=== PATIENT | male | born 1970 | race Caucasian/White ===

== ENCOUNTER 2020-04-11 09:58 | Outpatient (REF) | payer OTHER, SELFPAY ==
[2020-04-11 11:08] LABS: Alanine Aminotransferase 23 U/L (0-40); Albumin Level 4.6 g/dL (3.5-5.0); Alkaline Phosphatase 138 U/L (39-117); Aspartate Amino Transferase 20 U/L (5-37); Bilirubin Direct < 0.2 mg/dL (0.0-0.5); Bilirubin Total 0.2 mg/dL (0.0-1.0); Total Protein 7.9 g/dL (6.5-8.0)
[2020-04-11 11:16] LABS: Phenytoin Dilantin 14.1 ug/mL (10.0-20.0)
== END 2020-04-11 09:59 | disposition home or self-care (01) ==
LOC: HO.LAB 09:58
PROVIDERS: PCP Internal Medicine; Visit Provider Psychiatry & Neurology Neurology
DX: G40.909 Epilepsy, unspecified, not intractable, without status epilepticus (principal)
CPT/HCPCS: 80076; 80185

== ENCOUNTER 2020-05-04 16:16 | Emergency (ER) | payer OTHER, SELFPAY ==
[2020-05-04 16:25] VITALS: BP 140/80; PULSE 80; PULSE 96; RESP 14; TEMP 37; O2SAT 96; O2SAT 99; BMI 21.7
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
[2020-05-04 17:15] VITALS: BP 152/95; PULSE 89; RESP 16; TEMP 37; O2SAT 97
== END 2020-05-04 17:29 | disposition left against medical advice (07) ==
PROVIDERS: Emergency Provider Emergency Medicine
DX: G40.909 Epilepsy, unspecified, not intractable, without status epilepticus (principal)
CPT/HCPCS: 99283

== ENCOUNTER 2020-10-11 11:06 | Outpatient (REF) | payer OTHER, SELFPAY ==
[2020-10-11 12:31] LABS: Alanine Aminotransferase 19 U/L (0-40); Albumin Level 4.2 g/dL (3.5-5.0); Alkaline Phosphatase 108 U/L (39-117); Anion Gap 11 (12-20); Aspartate Amino Transferase 16 U/L (5-37); Bilirubin Direct < 0.2 mg/dL (0.0-0.5); Bilirubin Total 0.2 mg/dL (0.0-1.0); Blood Urea Nitrogen 9 mg/dL (9-16); Calcium 8.8 mg/dL (8.4-10.2); Carbon Dioxide 26 mmol/L (22-29); Chloride 103 mmol/L (96-108); Estimated Glomerular Filt Rate > 60; Glucose Random 94 mg/dL (60-115); Potassium 4.3 mmol/L (3.3-5.1); Sodium 136 mmol/L (135-145); Total Protein 6.9 g/dL (6.5-8.0)
== END 2020-10-11 11:07 | disposition home or self-care (01) ==
LOC: HO.LAB 11:06
PROVIDERS: PCP Internal Medicine; Visit Provider Psychiatry & Neurology Neurology
DX: G40.909 Epilepsy, unspecified, not intractable, without status epilepticus (principal)
CPT/HCPCS: 36415; 80048; 80076

== ENCOUNTER 2020-10-18 11:30 | Emergency (ER) | payer OTHER, SELFPAY ==
[2020-10-18] VITALS (13 sets, daily range): BP systolic 104–167; BP diastolic 30–105; PULSE 48–85; RESP 15–19; TEMP 36.6–36.7; O2SAT 96–98; BMI 19.3
--- NOTE | ~2020-10-18 | CT_ITS ---
EXAMINATION: CTA OF THE HEAD AND NECK CLINICAL INFORMATION: Headaches and dizziness. COMPARISON: Head CT dated 06/17/2011. TECHNIQUE: Test bolus sequences followed by intravenous administration 70 mL of Omnipaque 350. Helical imaging was performed in the axial plane from the mediastinum to the skull vertex. Delayed postcontrast imaging of the head was also performed. The data was processed at the wood technologist's workstation for generation of MIP sequences. Three-dimensional volume rendered reformatted images were also generated at an offline 3-D workstation. Stenoses are assessed in accordance with NASCET criteria unless otherwise indicated. This CT examination was performed using dose optimization techniques as appropriate, variously including the following: *Automated exposure control *Adjustment of mA and/or kV according to patient size (this includes techniques or standardized protocols for targeted exams where dose is matched to indication/reason for exam; i.e. extremities or head) *Use of iterative reconstruction technique DLP: 2438 mGy-cm. FINDINGS: CT head: Remote right-sided craniotomy changes noted. There is significant volume loss in the right frontoparietal lobes with chronic ex vacuo dilatation of the right lateral ventricle. Frontoparietal sulcal prominence and encephalomalacia again evident on the right side. Scattered dural calcifications again evident along the falx and tentorium. There is no evidence of acute intracranial hemorrhage or territorial infarction. There is no loss of steve to white matter differentiation. No abnormal mass effect or midline shift is seen. No extra-axial fluid collections are identified. A small lipoma is visible in the midline suprasellar cistern at the level of the tuber cinereum. There is no abnormal enhancement. The remaining osseous structures and soft tissues are normal. There is patchy mild mucosal thickening with scattered retention cysts in the frontoethmoid sinuses and maxillary antra. The mastoid air cells are well aerated. CTA neck: The imaged aortic arch and origins of the great vessels are normal. The common carotid arteries are widely patent. The carotid bifurcations are normal. The cervical internal carotid arteries are normal. The vertebral arteries opacify normally and are of normal caliber. Heterogeneous nodularity of the thyroid gland evident. Wire again visible in the left aspect of the neck extending into the inferior left carotid space. Multilevel cervical spondylosis noted with disc-osteophyte complexes encroaching upon the neural foramina. The imaged portions of the lungs are clear. CTA head: The intradural vertebral arteries and basilar artery are normal. The posterior cerebral arteries are widely patent. The internal carotid arteries are of normal caliber. The JE and MCA vascular complexes bilaterally are patent. The distal right M1 segment and M2 vessels are somewhat attenuated in caliber as compared to the left side, suspected to be chronic. The venous sinuses opacify normally. CT/CT angio head neck IMPRESSION: Normal CT angiogram of the neck. Chronic-appearing mild to moderate attenuated caliber of the distal M1 and M2 branches of the right MCA vasculature without occlusion. Remainder of the vessels at the level of the [place] are preserved. Chronic postsurgical changes and significant volume loss in the right frontoparietal lobes with ex vacuo dilatation of the right lateral ventricle. Scattered areas of cortical/subcortical encephalomalacia and gliosis in the right cerebral hemisphere. Otherwise, no acute process. Imaging findings reported to HENRY Torres at 5:31 PM on 10/18/2020.
--- NOTE | 2020-10-18 11:39 | ECG_ITS ---
Test Reason : DIZZINESS Blood Pressure : / mmHG Vent. Rate : 061 BPM Atrial Rate : 061 BPM P-R Int : 152 ms QRS Dur : 108 ms QT Int : 418 ms P-R-T Axes : 065 105 073 degrees QTc Int : 420 ms Normal sinus rhythm Rightward axis Borderline ECG When compared with ECG of 17-JUN-2011 21:27, QRS duration has increased Referred By: Generic ED Physician Electronically Signed By:ARIEL WHARTON MD
[2020-10-18 11:55] LABS: Glucose, Whole Blood 106 mg/dL (60-115)
[2020-10-18 12:32] LABS: MANUAL DIFF FLAG NO
[2020-10-18 12:33] LABS: Basophils Absolute Auto 0.1 X10*3/uL (0.0-0.2); Basophils Percent Auto 0.5 % (0-2); Eosinophils Absolute Auto 0.2 X10*3/uL (0.0-0.4); Hematocrit 46.3 % (42-52); Hemoglobin 15.6 g/dl (14.0-18.0); Imm Gran Abs Auto 0.04 X10*3/uL (0.00-0.03); Imm Gran Pct Auto 0.4 % (0.0-0.4); Lymphocytes Absolute Auto 1.9 X10*3/uL (1.2-4.9); Lymphocytes Percent Auto 20.9 % (20-40); Mean Corpuscular HGB Conc 33.7 g/dl (31.0-36.0); Mean Corpuscular Hemoglobin 29.8 pg (27.0-33.0); Mean Corpuscular Volume 88.4 fL (80-98); Mean Platelet Volume 9.4 fL (9.4-12.4); Monocytes Absolute Auto 0.5 X10*3/uL (0.1-1.2); Monocytes Percent Auto 5.6 % (2-11); Neutrophils Absolute Auto 6.4 X10*3/uL (2.0-8.3); Neutrophils Percent Auto 70.6 % (45-73); Platelet Count 293 X10*3/uL (160-400); Red Blood Count 5.24 X10*6/uL (4.60-5.80); Red Cell Distribution Width 14.3 % (11.0-16.0); White Blood Count 9.1 X10*3/uL (4.8-10.8)
[2020-10-18 13:01] LABS: Lactic Acid 0.8 mmol/L (0.5-2.0)
[2020-10-18 13:07] LABS: Anion Gap 11 (12-20); Blood Urea Nitrogen 9 mg/dL (9-16); Calcium 8.9 mg/dL (8.4-10.2); Carbon Dioxide 27 mmol/L (22-29); Chloride 104 mmol/L (96-108); Creatinine Clr Calc Pharmacy 95.2; Estimated Glomerular Filt Rate > 60; Glucose Random 105 mg/dL (60-115); Potassium 4.2 mmol/L (3.3-5.1); Sodium 138 mmol/L (135-145)
[2020-10-18] MEDS: Metoclopramide HCl 10 MG/2 ML VIAL IVPUSH (13:16)
[2020-10-18 13:17] LABS: Phenytoin Dilantin 19.5 ug/mL (10.0-20.0)
[2020-10-18] MEDS: Butalb/Acetamin/Caff 50/325/40 TABLET 1 TAB PO (13:19)
[2020-10-18] MEDS: Meclizine HCl 25 MG TABLET 50 MG PO (13:20)
[2020-10-18 14:02] LABS: Prothrombin Time 12.3 SEC (10.8-13.0)
[2020-10-18 14:05] LABS: Partial Thromboplastin Time 30.6 SEC (24.1-38.0)
[2020-10-18 14:29] LABS: Troponin-I High Sensitivity < 3.5 ng/L (<3.5-35.0)
[2020-10-18] MEDS: iohexoL 350 MG/ML 100 ML INFUS..BTL 85 ML IV (14:41)
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
[2020-10-18] MEDS: 0.9 % Sodium Chloride 1,000 ML 999 ML IV (16:29)
--- NOTE | 2020-10-18 17:00 | PC.NURSE ---
Patient is resting quietly in bed in no distress. pt encouraged to void but state he does not feel the need to void.
[2020-10-18 20:30] LABS: Glucose Urine UA NEG (NEG); Leukocyte Esterase Urine NEG (NEG); Nitrite Urine NEG (NEG); Urine Blood NEG (NEG); Urine Ketones NEG (NEG); Urine Protein NEG (NEG-TRACE)
[2020-10-18 20:31] LABS: Appearance Urine CLEAR; Color Urine YELLOW
[2020-10-18 20:52] LABS: Troponin-I High Sensitivity < 3.5 ng/L (<3.5-35.0)
== END 2020-10-18 21:38 | disposition home or self-care (01) ==
PROVIDERS: Physician Assistant; Emergency Provider Emergency Medicine; PCP Internal Medicine
DX: I95.1 Orthostatic hypotension (principal); G81.94 Hemiplegia, unspecified affecting left nondominant side; G40.909 Epilepsy, unspecified, not intractable, without status epilepticus; Z87.820 Personal history of traumatic brain injury
CPT/HCPCS: 36415; 70496; 70498; 80048; 80185; 81003; 82947; 83605; 84484; 85025; 85610; 85730; 93005; 96361; 96374; 99285; J2765; Q9967

== ENCOUNTER 2020-11-02 15:12 | Outpatient (REF) | payer OTHER, SELFPAY ==
--- NOTE | ~2020-11-02 | XR_ITS ---
EXAMINATION: XR SHOULDER, LEFT CLINICAL INFORMATION: Spraining left shoulder joint. COMPARISON: Left scapula 05/24/2017 TECHNIQUE: Three views of the left shoulder. FINDINGS: There is a displaced oblique fracture lateral clavicle with mild soft tissue swelling. The AC joint however is maintained normal . Visualized glenohumeral joint space is normal. XR/XR shoulder LT min 2V IMPRESSION: Displaced oblique fracture inferior lateral clavicle. The AC joint and glenohumeral joint are intact.
== END 2020-11-02 15:13 | disposition home or self-care (01) ==
LOC: HO.HMGCX 15:12
PROVIDERS: PCP Internal Medicine; Visit Provider Internal Medicine
DX: Z13.89 Encounter for screening for other disorder (principal)
CPT/HCPCS: 73030

== ENCOUNTER 2020-11-14 08:16 | Outpatient (REF) | payer OTHER, SELFPAY ==
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
== END 2020-11-14 08:17 | disposition home or self-care (01) ==
LOC: HO.HOSX 08:16
PROVIDERS: Visit Provider Physician Assistant
DX: S42.002A Fracture of unspecified part of left clavicle, initial encounter for closed fracture (principal)
CPT/HCPCS: 73000; 99212

== ENCOUNTER 2020-11-24 07:29 | Emergency (ER) | payer OTHER, SELFPAY ==
--- NOTE | ~2020-11-24 | CT_ITS ---
EXAMINATION: CT HEAD WITHOUT CONTRAST CLINICAL INFORMATION: Headaches COMPARISON: June 17, 2011 and CTA of October 18, 2020 TECHNIQUE: Contiguous axial imaging was performed from the skull base to vertex without intravenous administration of contrast. This CT examination was performed using dose optimization techniques as appropriate, variously including the following: *Automated exposure control *Adjustment of mA and/or kV according to patient size (this includes techniques or standardized protocols for targeted exams where dose is matched to indication/reason for exam; i.e. extremities or head) *Use of iterative reconstruction technique DLP: 722 mGy-cm FINDINGS: There is no evidence of acute intracranial hemorrhage or territorial infarction. No abnormal mass effect or midline shift is seen. Sanz to white matter differentiation is well preserved. No extra-axial fluid collections are identified. Patient status post right frontal/parietal craniotomy with changes of encephalomalacia with volume loss within the right frontal parietal lobes and dilatation of the right lateral ventricle. These findings are stable. There is mucosal disease seen within the ethmoid sinuses bilaterally. Mastoid air cells are aerated. CT/CT head/brain wo con IMPRESSION: No acute intracranial pathology. Encephalomalacia involving the right frontal and parietal lobes. Status post previous craniotomy.
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
--- NOTE | 2020-11-24 07:38 | ECG_ITS ---
Test Reason : DIZZINESS Blood Pressure : / mmHG Vent. Rate : 070 BPM Atrial Rate : 070 BPM P-R Int : 156 ms QRS Dur : 102 ms QT Int : 398 ms P-R-T Axes : 063 078 070 degrees QTc Int : 429 ms Normal sinus rhythm Possible Left atrial enlargement Borderline ECG When compared with ECG of 18-OCT-2020 11:47, No significant change was found Referred By: Carolin Beckford Electronically Signed By:Steven Mcmullen
[2020-11-24 07:42] VITALS: BP 165/105; BP 170/98; PULSE 79; PULSE 98; RESP 18; TEMP 36.9; O2SAT 96; BMI 20.1
[2020-11-24 08:37] LABS: MANUAL DIFF FLAG NO
[2020-11-24 08:40] LABS: Basophils Absolute Auto 0.1 X10*3/uL (0.0-0.2); Basophils Percent Auto 0.7 % (0-2); Eosinophils Absolute Auto 0.3 X10*3/uL (0.0-0.4); Eosinophils Percent Auto 2.1 % (0-4); Hematocrit 44.6 % (42-52); Hemoglobin 15.2 g/dl (14.0-18.0); Imm Gran Abs Auto 0.04 X10*3/uL (0.00-0.03); Imm Gran Pct Auto 0.3 % (0.0-0.4); Lymphocytes Absolute Auto 2.4 X10*3/uL (1.2-4.9); Lymphocytes Percent Auto 20.2 % (20-40); Mean Corpuscular HGB Conc 34.1 g/dl (31.0-36.0); Mean Corpuscular Volume 88.1 fL (80-98); Mean Platelet Volume 9.8 fL (9.4-12.4); Monocytes Absolute Auto 0.9 X10*3/uL (0.1-1.2); Monocytes Percent Auto 7.9 % (2-11); Neutrophils Percent Auto 68.8 % (45-73); Platelet Count 275 X10*3/uL (160-400); Red Blood Count 5.06 X10*6/uL (4.60-5.80); White Blood Count 11.7 X10*3/uL (4.8-10.8)
[2020-11-24 08:45] LABS: Prothrombin Time 11.7 SEC (9.9-13.0)
[2020-11-24 08:48] LABS: Partial Thromboplastin Time 29.6 SEC (24.1-38.0)
[2020-11-24] MEDS: 0.9 % Sodium Chloride 1,000 ML 999 ML IVCONT ×2 (09:00)
[2020-11-24] MEDS: Acetaminophen 325 MG TABLET 650 MG PO (09:03)
[2020-11-24] MEDS: Meclizine HCl 25 MG TABLET PO (09:03)
[2020-11-24 09:27] LABS: Alanine Aminotransferase 17 U/L (0-40); Albumin Level 3.9 g/dL (3.5-5.0); Alkaline Phosphatase 125 U/L (39-117); Anion Gap 12 (12-20); Aspartate Amino Transferase 13 U/L (5-37); Bilirubin Direct < 0.2 mg/dL (0.0-0.5); Bilirubin Total < 0.2 mg/dL (0.0-1.0); Blood Urea Nitrogen 12 mg/dL (9-16); Calcium 8.9 mg/dL (8.4-10.2); Carbon Dioxide 27 mmol/L (22-29); Chloride 102 mmol/L (96-108); Creatinine Clr Calc Pharmacy 95.5; Estimated Glomerular Filt Rate > 60; Glucose Random 103 mg/dL (60-115); Magnesium 1.8 mg/dL (1.6-2.6); Potassium 4.4 mmol/L (3.3-5.1); Sodium 137 mmol/L (135-145); Total Protein 6.9 g/dL (6.5-8.0)
[2020-11-24 09:43] LABS: Phenytoin Dilantin 22.3 ug/mL (10.0-20.0)
[2020-11-24 11:28] VITALS: BP 147/88; PULSE 64; O2SAT 98
--- NOTE | 2020-11-24 11:28 | PC.NURSE ---
Pt difficult stick. multiple attempts made to establish iv. EJ established in left neck by Dr. Beckford. fluids infusing without difficulty, pt tolerating well.
== END 2020-11-24 14:20 | disposition home or self-care (01) ==
PROVIDERS: Emergency Provider Emergency Medicine; PCP Internal Medicine
DX: G44.209 Tension-type headache, unspecified, not intractable (principal); R42 Dizziness and giddiness; H53.8 Other visual disturbances; E86.0 Dehydration; F17.200 Nicotine dependence, unspecified, uncomplicated; R29.707 NIHSS score 7; Z79.899 Other long term (current) drug therapy; Z71.6 Tobacco abuse counseling
CPT/HCPCS: 36415; 70450; 80048; 80076; 80185; 83735; 84484; 85025; 85610; 85730; 93005; 96365; 96375; 99284; J2405

== ENCOUNTER 2020-11-29 09:06 | Emergency (ER) | payer OTHER, SELFPAY ==
--- NOTE | ~2020-11-29 | CT_ITS ---
EXAMINATION: CT ABDOMEN AND PELVIS WITH CONTRAST CLINICAL INFORMATION: Abdominal pain COMPARISON: None TECHNIQUE: Multidetector volumetric images were obtained from the superior aspect of the liver through the pubic symphysis following administration 85 mL of Omnipaque 350 intravenous contrast. Sagittal and coronal reformatted images were obtained on the technologist's workstation. Oral contrast: No This CT examination was performed using dose optimization techniques as appropriate, variously including the following: *Automated exposure control *Adjustment of mA and/or kV according to patient size (this includes techniques or standardized protocols for targeted exams where dose is matched to indication/reason for exam; i.e. extremities or head) *Use of iterative reconstruction technique DLP: 440 mGy-cm FINDINGS: LUNG BASES: The visualized lung bases are unremarkable. No pleural or pericardial effusion. LIVER, GALLBLADDER, AND BILIARY TREE: The liver is normal in size, shape, and attenuation. No focal hepatic lesion or biliary ductal dilatation is present. Status post cholecystectomy. PANCREAS: Unremarkable. No peripancreatic inflammatory change. SPLEEN: Unremarkable. ADRENAL GLANDS: Unremarkable. KIDNEYS AND URETERS: The kidneys are normal in size, shape, and attenuation. No hydronephrosis, hydroureter, or calculi seen. No perinephric stranding. There are a few subcentimeter left renal cysts. BLADDER: Very distended without wall thickening or calculi. GASTROINTESTINAL TRACT: No dilated loops of large or small bowel. No free air or free fluid. ABDOMINAL WALL: No significant hernia is appreciated. LYMPH NODES: There are prominent periaortic lymph nodes present with 1 right periaortic lymph node measuring 1.0 x 1.2 x 3.0 cm in size. There is a 1.0 x 1.3 x 1.5 cm lymph node adjacent to the GE junction. VASCULAR: Unremarkable. PELVIC VISCERA: Very distended urinary bladder without free fluid. The prostate gland measures approximately 4.5 x 5.0 x 3.5 cm in size. OSSEOUS STRUCTURES: No suspicious destructive bony lesions identified. There is degenerative change of the left sacroiliac joint with fusion. CT/CT abdomen pelvis w con IMPRESSION: Very distended urinary bladder. No evidence of ileus or obstruction. No evidence of obstructive uropathy. Enlarged periaortic lymph nodes.
[2020-11-29 09:14] VITALS: BP 170/106; PULSE 72; RESP 17; TEMP 37; O2SAT 98; BMI 21.9
[2020-11-29 09:59] LABS: MANUAL DIFF FLAG NO
[2020-11-29 10:00] LABS: Basophils Absolute Auto 0.1 X10*3/uL (0.0-0.2); Basophils Percent Auto 0.7 % (0-2); Eosinophils Absolute Auto 0.4 X10*3/uL (0.0-0.4); Eosinophils Percent Auto 4.2 % (0-4); Hemoglobin 15.1 g/dl (14.0-18.0); Imm Gran Abs Auto 0.02 X10*3/uL (0.00-0.03); Imm Gran Pct Auto 0.2 % (0.0-0.4); Lymphocytes Absolute Auto 2.7 X10*3/uL (1.2-4.9); Lymphocytes Percent Auto 32.3 % (20-40); Mean Corpuscular HGB Conc 33.6 g/dl (31.0-36.0); Mean Corpuscular Hemoglobin 29.8 pg (27.0-33.0); Mean Corpuscular Volume 88.8 fL (80-98); Mean Platelet Volume 10.3 fL (9.4-12.4); Monocytes Absolute Auto 0.6 X10*3/uL (0.1-1.2); Monocytes Percent Auto 6.9 % (2-11); Neutrophils Absolute Auto 4.7 X10*3/uL (2.0-8.3); Neutrophils Percent Auto 55.7 % (45-73); Platelet Count 236 X10*3/uL (160-400); Red Blood Count 5.07 X10*6/uL (4.60-5.80); Red Cell Distribution Width 14.3 % (11.0-16.0); White Blood Count 8.4 X10*3/uL (4.8-10.8)
[2020-11-29 10:31] LABS: Alanine Aminotransferase 21 U/L (0-40); Albumin Level 3.9 g/dL (3.5-5.0); Alkaline Phosphatase 117 U/L (39-117); Anion Gap 12 (12-20); Aspartate Amino Transferase 15 U/L (5-37); Bilirubin Total 0.2 mg/dL (0.0-1.0); Blood Urea Nitrogen 7 mg/dL (9-16); Carbon Dioxide 25 mmol/L (22-29); Chloride 104 mmol/L (96-108); Creatinine Clr Calc Pharmacy 112.6; Estimated Glomerular Filt Rate > 60; Glucose Random 98 mg/dL (60-115); Potassium 4.4 mmol/L (3.3-5.1); Sodium 137 mmol/L (135-145); Total Protein 6.8 g/dL (6.5-8.0)
[2020-11-29 10:46] VITALS: BP 171/105; PULSE 67; RESP 18; TEMP 36.7; O2SAT 98
--- NOTE | 2020-11-29 12:15 | ECG_ITS ---
Test Reason : DIZZINESS Blood Pressure : / mmHG Vent. Rate : 063 BPM Atrial Rate : 063 BPM P-R Int : 150 ms QRS Dur : 104 ms QT Int : 436 ms P-R-T Axes : 068 101 066 degrees QTc Int : 446 ms Normal sinus rhythm Rightward axis Borderline ECG When compared with ECG of 24-NOV-2020 08:08, No significant change was found Referred By: Rosie Larose Electronically Signed By:ARIEL WHARTON MD
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
[2020-11-29] MEDS: 0.9 % Sodium Chloride 1,000 ML 999 ML IV (12:35)
--- NOTE | 2020-11-29 12:36 | PC.NURSE ---
Pt evaluated by . IVF started. VSS. Pt aware of plan for CT.
[2020-11-29 12:37] VITALS: BP 157/91; PULSE 64; RESP 18; O2SAT 98
[2020-11-29] MEDS: iohexoL 350 MG/ML 100 ML INFUS..BTL IV (14:04)
[2020-11-29 15:57] LABS: Glucose Urine UA NEG (NEG); Leukocyte Esterase Urine NEG (NEG); Nitrite Urine NEG (NEG); PH 6.5 (5.0-8.0); Specific Gravity - Urine <= 1.005 (1.005-1.025); Urine Blood NEG (NEG); Urine Ketones NEG (NEG); Urine Protein NEG (NEG-TRACE)
[2020-11-29 15:58] LABS: Appearance Urine CLEAR; Color Urine YELLOW
--- NOTE | 2020-11-29 16:56 | PC.NURSE ---
Pt voided in BR. He was asked for urine sample and to completely empty his bladder. He stated that he emptyied his bladder as much as he could. LPG=621 on bladder scan. Pt states that he cannot empty his blader further. Pt sent back to [facility] to try again. PVR per bladder scan remains 350ml. MD made aware. Pt informed of likely plan for catheter if he cannot empty his bladder. He is asking what will happen if he refuses the catheter. MD made aware of the need to speak with pt to review plan of care.
== END 2020-11-29 18:27 | disposition home or self-care (01) ==
PROVIDERS: Emergency Provider Emergency Medicine Emergency Medical Services; PCP Internal Medicine
DX: R33.9 Retention of urine, unspecified (principal); F17.210 Nicotine dependence, cigarettes, uncomplicated; I69.954 Hemiplegia and hemiparesis following unspecified cerebrovascular disease affecting left non-dominant side; Z87.820 Personal history of traumatic brain injury
CPT/HCPCS: 36415; 74177; 80053; 81003; 85025; 93005; 96360; 99284; 99285; Q9967

== ENCOUNTER 2020-11-30 17:48 | Emergency (ER) | payer OTHER, SELFPAY ==
[2020-11-30 17:57] VITALS: BP 156/82; PULSE 86; O2SAT 96
[2020-11-30 18:30] VITALS: BP 139/101; PULSE 86; RESP 16; TEMP 37.3; O2SAT 94; BMI 21.9
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
[2020-11-30 20:50] LABS: MANUAL DIFF FLAG NO
[2020-11-30 20:53] LABS: Basophils Absolute Auto 0.1 X10*3/uL (0.0-0.2); Basophils Percent Auto 0.4 % (0-2); Eosinophils Absolute Auto 0.5 X10*3/uL (0.0-0.4); Eosinophils Percent Auto 3.3 % (0-4); Hematocrit 40.3 % (42-52); Imm Gran Abs Auto 0.05 X10*3/uL (0.00-0.03); Imm Gran Pct Auto 0.4 % (0.0-0.4); Lymphocytes Absolute Auto 4.2 X10*3/uL (1.2-4.9); Lymphocytes Percent Auto 31.1 % (20-40); Mean Corpuscular HGB Conc 34.7 g/dl (31.0-36.0); Mean Corpuscular Hemoglobin 30.5 pg (27.0-33.0); Mean Corpuscular Volume 87.8 fL (80-98); Mean Platelet Volume 9.5 fL (9.4-12.4); Monocytes Absolute Auto 1.1 X10*3/uL (0.1-1.2); Neutrophils Absolute Auto 7.7 X10*3/uL (2.0-8.3); Neutrophils Percent Auto 56.8 % (45-73); Platelet Count 252 X10*3/uL (160-400); Red Blood Count 4.59 X10*6/uL (4.60-5.80); Red Cell Distribution Width 14.2 % (11.0-16.0); White Blood Count 13.6 X10*3/uL (4.8-10.8)
[2020-11-30 21:21] LABS: Anion Gap 10 (12-20); Blood Urea Nitrogen 7 mg/dL (9-16); Calcium 8.8 mg/dL (8.4-10.2); Carbon Dioxide 26 mmol/L (22-29); Chloride 101 mmol/L (96-108); Creatinine Clr Calc Pharmacy 109.6; Estimated Glomerular Filt Rate > 60; Glucose Random 107 mg/dL (60-115); Potassium 3.4 mmol/L (3.3-5.1); Sodium 134 mmol/L (135-145)
== END 2020-11-30 21:55 | disposition home or self-care (01) ==
PROVIDERS: Emergency Provider Emergency Medicine; PCP Internal Medicine
DX: R33.9 Retention of urine, unspecified (principal); Z96.0 Presence of urogenital implants
CPT/HCPCS: 36415; 80048; 85025; 99283

== ENCOUNTER → 2020-12-02 08:27 | Outpatient (BNVA) | payer OTHER, SELFPAY | PROVIDERS: PCP Internal Medicine; Visit Provider Urology | DX: N40.1 Benign prostatic hyperplasia with lower urinary tract symptoms (principal); N13.8 Other obstructive and reflux uropathy; R33.9 Retention of urine, unspecified | CPT/HCPCS: 51700; 99202 ==

== ENCOUNTER 2020-12-05 07:33 | Outpatient (REF) | payer OTHER, SELFPAY | END 2020-12-05 07:34 | disposition home or self-care (01) | LOC: HO.HOSX 07:33 | PROVIDERS: Visit Provider Physician Assistant | DX: Z13.89 Encounter for screening for other disorder (principal) ==

== ENCOUNTER 2020-12-16 12:41 | Outpatient (REF) | payer OTHER, SELFPAY ==
--- NOTE | ~2020-12-16 | XR_ITS ---
EXAMINATION: XR CLAVICLE, LEFT CLINICAL INFORMATION: Disorder of bone COMPARISON: None TECHNIQUE: Frontal and oblique of the left clavicle. FINDINGS: Subacute unhealed fracture of the distal left clavicle with mild displacement, softening of the fracture line suggests the fracture is probably subacute, no dislocation. Adjacent ribs are intact. There are degenerative changes of the left shoulder. XR/XR clavicle LT IMPRESSION: Unhealed probably subacute mildly displaced oblique fracture through the distal left clavicle. (Referring physician staff is being called, to be alerted of the above findings and recommendations.) AJ
== END 2020-12-16 12:42 | disposition home or self-care (01) ==
LOC: HO.XRAY 12:41
PROVIDERS: PCP Internal Medicine; Visit Provider Physician Assistant
DX: S42.002D Fracture of unspecified part of left clavicle, subsequent encounter for fracture with routine healing (principal); G81.94 Hemiplegia, unspecified affecting left nondominant side; F17.210 Nicotine dependence, cigarettes, uncomplicated
CPT/HCPCS: 73000; 99212

== ENCOUNTER → 2020-12-20 09:15 | Outpatient (BNVA) | payer OTHER, SELFPAY | PROVIDERS: PCP Internal Medicine; Visit Provider Urology | DX: N40.1 Benign prostatic hyperplasia with lower urinary tract symptoms (principal); N13.8 Other obstructive and reflux uropathy | CPT/HCPCS: 51798; 99212 ==

== ENCOUNTER 2020-12-28 15:25 | Outpatient (REF) | payer OTHER, SELFPAY ==
[2020-12-28 17:43] LABS: Lipase 49 U/L (8-78)
[2020-12-29 19:46] LABS: Transglutaminase Ab IgG 1 U/mL; Transglutaminase IgA 1 U/mL
== END 2020-12-28 15:26 | disposition home or self-care (01) ==
LOC: HO.LAB 15:25
PROVIDERS: PCP Internal Medicine; Referring Provider Internal Medicine; Visit Provider Nurse Practitioner Family
DX: R10.11 Right upper quadrant pain (principal); K58.9 Irritable bowel syndrome, unspecified; R19.7 Diarrhea, unspecified; R14.0 Abdominal distension (gaseous); K59.09 Other constipation; Z71.3 Dietary counseling and surveillance; Z79.899 Other long term (current) drug therapy
CPT/HCPCS: 36415; 83516; 83690; 84443; 86140; 99202

== ENCOUNTER 2020-12-29 10:14 | Emergency (ER) | payer OTHER, SELFPAY ==
--- NOTE | ~2020-12-29 | CT_ITS ---
EXAMINATION: CT ABDOMEN AND PELVIS WITHOUT CONTRAST CLINICAL INFORMATION: Diffuse abdominal pain and constipation. Evaluate stool burden. COMPARISON: Previous CT of the abdomen and pelvis November 2020 TECHNIQUE: Multidetector volumetric imaging was performed from the superior aspect of the liver through the pubic symphysis. Sagittal and coronal reformatted images were obtained on the technologist's workstation. This CT examination was performed using dose optimization techniques as appropriate, variously including the following: *Automated exposure control *Adjustment of mA and/or kV according to patient size (this includes techniques or standardized protocols for targeted exams where dose is matched to indication/reason for exam; i.e. extremities or head) *Use of iterative reconstruction technique DLP: 414 mGy-cm FINDINGS: LUNG BASES: The visualized lung bases are unremarkable. LIVER, GALLBLADDER, AND BILIARY TREE: The liver is normal in size, shape, and attenuation. No focal hepatic lesion or biliary ductal dilatation is present. The gallbladder has been removed. PANCREAS: Unremarkable. SPLEEN: Unremarkable. ADRENAL GLANDS: Unremarkable. KIDNEYS AND URETERS: The kidneys are normal in size, shape, and attenuation. No hydronephrosis, hydroureter, or calculi seen. No perinephric stranding. BLADDER: Unremarkable. GASTROINTESTINAL TRACT: There is a large stool burden. There are no dilated loops of bowel to suggest obstruction. The small and large bowel are otherwise unremarkable. The appendix is unremarkable. ABDOMINAL WALL: No significant hernia is appreciated. LYMPH NODES: Normal. VASCULAR: Unremarkable. PELVIC VISCERA: Unremarkable. OSSEOUS STRUCTURES: There are mild degenerative changes of the spine. CT/CT abdomen pelvis wo con IMPRESSION: Constipation/large stool burden.
--- NOTE | ~2020-12-29 | CT_ITS ---
EXAMINATION: CT HEAD WITHOUT CONTRAST CLINICAL INFORMATION: Dizziness for 3 days COMPARISON: Previous CT scans most recent November 2020 TECHNIQUE: Contiguous axial imaging was performed from the skull base to vertex without intravenous administration of contrast. This CT examination was performed using dose optimization techniques as appropriate, variously including the following: *Automated exposure control *Adjustment of mA and/or kV according to patient size (this includes techniques or standardized protocols for targeted exams where dose is matched to indication/reason for exam; i.e. extremities or head) *Use of iterative reconstruction technique DLP: 682 mGy-cm FINDINGS: There is no evidence of an extra-axial collection. There is no evidence of intra-axial or extra-axial hemorrhage. There is a atrophy of the right frontal and parietal lobes and ex vacuo dilatation of the right lateral ventricle. This is unchanged. Ventricles and extra-axial CSF spaces are otherwise normal.The right temporal and occipital lobes are normal in the occipital and temporal horns of the right lateral ventricle are normal. No mass, mass effect or infarct is seen. There are multiple peripheral calcifications that appear unchanged. There is a right sided craniotomy defect that appears unchanged. May be an old left craniotomy defect as well. No skull fracture is seen. There is a small polyp in the left maxillary sinus and some soft tissue opacification of the frontal sinuses. Visualized paranasal sinuses, mastoid air cells and middle ears are otherwise clear. CT/CT head/brain wo con IMPRESSION: Atrophy or encephalomalacia of the right frontal and parietal lobes and ex vacuo dilatation of the right lateral ventricle unchanged from previous exams. No acute findings. Mild sinus disease.
--- NOTE | ~2020-12-29 | XR_ITS ---
EXAMINATION: XR CHEST CLINICAL INFORMATION: Dizziness. COMPARISON: CT chest 06/01/2010 TECHNIQUE: 2 views of the chest were obtained. FINDINGS: The lungs are well-expanded and clear. There is a 9 mm nodule right midlung eighth posterior interspace. No additional lesions seen. The heart size and pulmonary vascularity is normal. There is subcutaneous electrode in the left neck. XR/XR chest 2V IMPRESSION: Expanded lungs without acute process. Small nodule right midlung region on PA projection only. This could be an artifact or a pulmonary nodule. It was not seen on CT chest 06/01/2010. Either a repeat chest x-ray with oblique views or CT chest without contrast can be performed as a follow-up as outpatient.
[2020-12-29 11:08] VITALS: BP 141/93; PULSE 73; RESP 16; TEMP 36.1; O2SAT 97; BMI 23.5
--- NOTE | 2020-12-29 11:34 | ECG_ITS ---
Test Reason : AB PAIN Blood Pressure : / mmHG Vent. Rate : 060 BPM Atrial Rate : 060 BPM P-R Int : 160 ms QRS Dur : 102 ms QT Int : 428 ms P-R-T Axes : 063 099 070 degrees QTc Int : 428 ms Normal sinus rhythm Rightward axis Borderline ECG When compared with ECG of 29-NOV-2020 12:47, No significant change was found Referred By: Mary Ellison Electronically Signed By:ANDI ALEGRIA
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
--- NOTE | 2020-12-29 12:17 | PC.NURSE ---
pt's sister liz pereira ([phone]) [place] [facility] [place] that [place] has a hx of enlarged prostate and urinary retention. she states that pt is not taking his med for enlarged prostate and that she gave him milk of mag yesterday at 1800 and mag citrate on saturday at 1130 and he has been taking colace x 1 wk with no relief/result. pt's gi sister states also started pt on a new laxative yesterday. aware.
[2020-12-29 13:40] VITALS: BP 155/95; PULSE 62; RESP 18; TEMP 35.6; O2SAT 98
[2020-12-29 14:44] VITALS: BP 168/98
[2020-12-29 14:45] VITALS: BP 177/111; PULSE 80
[2020-12-29 14:46] VITALS: BP 168/98; BP 170/104; PULSE 62; PULSE 73; RESP 15; O2SAT 96
[2020-12-29 14:51] LABS: MANUAL DIFF FLAG NO
[2020-12-29 14:53] LABS: Basophils Absolute Auto 0.1 X10*3/uL (0.0-0.2); Basophils Percent Auto 0.6 % (0-2); Eosinophils Absolute Auto 0.4 X10*3/uL (0.0-0.4); Eosinophils Percent Auto 3.5 % (0-4); Hematocrit 48.4 % (42-52); Hemoglobin 16.4 g/dl (14.0-18.0); Imm Gran Abs Auto 0.03 X10*3/uL (0.00-0.03); Imm Gran Pct Auto 0.3 % (0.0-0.4); Lymphocytes Percent Auto 37.5 % (20-40); Mean Corpuscular HGB Conc 33.9 g/dl (31.0-36.0); Mean Corpuscular Hemoglobin 30.5 pg (27.0-33.0); Monocytes Absolute Auto 0.6 X10*3/uL (0.1-1.2); Monocytes Percent Auto 5.6 % (2-11); Neutrophils Absolute Auto 5.7 X10*3/uL (2.0-8.3); Neutrophils Percent Auto 52.5 % (45-73); Platelet Count 264 X10*3/uL (160-400); Red Blood Count 5.38 X10*6/uL (4.60-5.80); White Blood Count 10.8 X10*3/uL (4.8-10.8)
[2020-12-29 14:56] LABS: Appearance Urine CLEAR; Color Urine YELLOW; Glucose Urine UA NEG (NEG); Leukocyte Esterase Urine NEG (NEG); Nitrite Urine NEG (NEG); Specific Gravity - Urine <= 1.005 (1.005-1.025); Urine Blood NEG (NEG); Urine Ketones NEG (NEG); Urine Protein NEG (NEG-TRACE)
[2020-12-29 14:59] LABS: Prothrombin Time 10.9 SEC (9.9-13.0)
[2020-12-29 15:10] LABS: Alanine Aminotransferase 18 U/L (0-40); Albumin Level 4.1 g/dL (3.5-5.0); Alkaline Phosphatase 127 U/L (39-117); Anion Gap 14 (12-20); Aspartate Amino Transferase 21 U/L (5-37); Bilirubin Direct 0.2 mg/dL (0.0-0.5); Bilirubin Total 0.3 mg/dL (0.0-1.0); Blood Urea Nitrogen 6 mg/dL (9-16); Calcium 9.4 mg/dL (8.4-10.2); Carbon Dioxide 24 mmol/L (22-29); Chloride 105 mmol/L (96-108); Creatinine Clr Calc Pharmacy 109.6; Estimated Glomerular Filt Rate > 60; Glucose Random 95 mg/dL (60-115); Lipase 35 U/L (8-78); Magnesium 2.4 mg/dL (1.6-2.6); Potassium 4.1 mmol/L (3.3-5.1); Sodium 139 mmol/L (135-145)
[2020-12-29 15:15] LABS: Troponin-I High Sensitivity < 3.5 ng/L (<3.5-35.0)
[2020-12-29 15:17] LABS: Phenytoin Dilantin 26.8 ug/mL (10.0-20.0)
[2020-12-29] MEDS: Meclizine HCl 25 MG TABLET PO (16:19)
== END 2020-12-29 17:12 | disposition home or self-care (01) ==
PROVIDERS: Nurse Practitioner Family; Emergency Provider Emergency Medicine; PCP Internal Medicine
DX: R42 Dizziness and giddiness (principal); K59.00 Constipation, unspecified; R89.2 Abnormal level of other drugs, medicaments and biological substances in specimens from other organs, systems and tissues; Z87.820 Personal history of traumatic brain injury; G81.94 Hemiplegia, unspecified affecting left nondominant side; Z79.899 Other long term (current) drug therapy; F17.210 Nicotine dependence, cigarettes, uncomplicated
CPT/HCPCS: 36415; 70450; 71046; 74176; 80048; 80076; 80185; 81003; 83690; 83735; 84484; 85025; 85610; 93005; 99284

== ENCOUNTER 2021-01-13 08:14 | Outpatient (REF) | payer OTHER, SELFPAY ==
--- NOTE | ~2021-01-13 | XR_ITS ---
EXAMINATION: XR CLAVICLE, LEFT CLINICAL INFORMATION: Clavicular fracture COMPARISON: Chest x-ray on 12/29/2020 TECHNIQUE: Straight AP and cephalad angulated AP views of the left clavicle. FINDINGS: Redemonstration of mildly displaced midclavicular fracture. There has been interval healing with callus formation. The previously displaced fragments are intact. The callus. The acromioclavicular joint is intact. XR/XR clavicle LT IMPRESSION: Healing left mid-distal clavicular fracture.
== END 2021-01-13 08:15 | disposition home or self-care (01) ==
LOC: HO.HOSX 08:14
PROVIDERS: Visit Provider Physician Assistant
DX: S42.002A Fracture of unspecified part of left clavicle, initial encounter for closed fracture (principal)
CPT/HCPCS: 73000; 99212

== ENCOUNTER → 2021-02-03 14:43 | Outpatient (BNVA) | payer OTHER, SELFPAY | PROVIDERS: PCP Internal Medicine; Referring Provider Internal Medicine; Visit Provider Nurse Practitioner Family | DX: K59.09 Other constipation (principal) | CPT/HCPCS: 99212 ==

== ENCOUNTER 2021-02-10 07:29 | Outpatient (REF) | payer OTHER, SELFPAY | END 2021-02-10 07:30 | disposition home or self-care (01) | LOC: HO.HOSX 07:29 | PROVIDERS: Visit Provider Physician Assistant | DX: Z13.89 Encounter for screening for other disorder (principal) ==

== ENCOUNTER → 2021-02-21 14:21 | Outpatient (BNVA) | payer OTHER, SELFPAY | PROVIDERS: Visit Provider Physician Assistant | DX: S42.002D Fracture of unspecified part of left clavicle, subsequent encounter for fracture with routine healing (principal) | CPT/HCPCS: 99212 ==

== ENCOUNTER → 2021-05-03 12:53 | Outpatient (BNVA) | payer OTHER, SELFPAY | PROVIDERS: PCP Internal Medicine; Referring Provider Internal Medicine; Visit Provider Nurse Practitioner Family ==

== ENCOUNTER 2021-05-03 13:41 | Outpatient (REF) | payer OTHER, SELFPAY | END 2021-05-03 13:42 | disposition home or self-care (01) | LOC: HO.LAB 13:41 | PROVIDERS: Psychiatry & Neurology Neurology; PCP Internal Medicine; Visit Provider Psychiatry & Neurology Neurology | DX: G40.909 Epilepsy, unspecified, not intractable, without status epilepticus (principal); K59.09 Other constipation; Z79.899 Other long term (current) drug therapy | CPT/HCPCS: 36415; 80185; 99212 ==

== ENCOUNTER 2021-05-18 08:18 | Inpatient (IN) | payer OTHER, SELFPAY ==
--- NOTE | ~2021-05-18 | CT_ITS ---
EXAMINATION: CT HEAD WITHOUT CONTRAST CLINICAL INFORMATION: Headache and seizures. COMPARISON: Previous head CT scans, most recent 12/29/2020. TECHNIQUE: Contiguous axial imaging was performed from the skull base to vertex without intravenous administration of contrast. This CT examination was performed using dose optimization techniques as appropriate, variously including the following: *Automated exposure control *Adjustment of mA and/or kV according to patient size (this includes techniques or standardized protocols for targeted exams where dose is matched to indication/reason for exam; i.e. extremities or head) *Use of iterative reconstruction technique DLP: 676 mGy-cm FINDINGS: There are right-sided craniotomy changes. There is significant volume loss to the right frontal, parietal and occipital lobes with ex vacuo dilatation of the right lateral ventricle. The ventricles and extra-axial CSF spaces are otherwise appropriate. There is falx and tentorial calcification that is unchanged. There is no evidence of an extra-axial collection. There is no evidence of intra-axial or extra-axial hemorrhage. No mass or mass effect is seen. No skull fracture or bone lesion is seen. There may be postoperative craniotomy change in the left frontal lobe as well. There are mild inflammatory changes in the paranasal sinuses. CT/CT head/brain wo con IMPRESSION: No acute findings. Stable significant volume loss with encephalomalacia of the right frontal and occipital lobes and ex vacuo dilatation of the right lateral ventricle. Dural and tentorial calcifications are also stable. Postoperative change from right craniotomy.
--- NOTE | ~2021-05-18 | CT_ITS ---
EXAMINATION: CT CHEST WITHOUT CONTRAST CLINICAL INFORMATION: Pulmonary nodule on prior chest x-ray, question malignancy COMPARISON: Chest radiograph 12/29/2020, CT chest 06/01/2010 TECHNIQUE: Multidetector volumetric CT imaging of the chest was done. Axial MIP volume rendering provided. Sagittal and coronal reformatted images were obtained. This CT examination was performed using dose optimization techniques as appropriate, variously including the following: *Automated exposure control *Adjustment of mA and/or kV according to patient size (this includes techniques or standardized protocols for targeted exams where dose is matched to indication/reason for exam; i.e. extremities or head) *Use of iterative reconstruction technique DLP: 221 mGy-cm FINDINGS: LUNGS: Multiple frothy secretions layering dependently within the right mainstem bronchus suggesting aspiration. Stable 4 mm pleural-based pulmonary nodule along the right major fissure morphologically resembling a benign intrapulmonary lymph node, no follow-up recommended. A new 2 mm solid left upper lobe pulmonary nodule, 9:190 and left upper lobe pulmonary micronodule, 9:225. Mild diffuse bronchial wall thickening. MEDIASTINUM: No mediastinal lymphadenopathy. Lack of intravenous contrast limits evaluation for hilar adenopathy. Stable appearance of soft tissue with concave margins in the anterior mediastinum infiltrated with mediastinal fat suggesting remnant thymus tissue. Heart is normal in size. PLEURA: No pleural effusion. AXILLA: No lymphadenopathy. UPPER ABDOMEN: Status post cholecystectomy. OSSEOUS STRUCTURES: Left chest wall generator device with a generator lead extending into the left neck. Symmetric gynecomastia. CT/CT chest wo con IMPRESSION: 2 small solid pulmonary nodules measuring up to 3 mm in the left upper lobe. Assuming patient has no known history of malignancy, recommend follow-up per Fleischner Society recommendations. If patient has a history of malignancy recommend follow-up per clinical oncologic recommendations. According to the UPDATED 2017 Fleischner Society recommendations, the advised followup imaging for solid nodules < 6 mm is: LOW RISK PATIENT: No routine follow up. HIGH RISK PATIENT: Optional CT at 12 months. Multiple frothy secretions layering dependently within the right mainstem bronchus suggesting aspiration. Mild bronchial wall thickening which can be seen in the setting of airways inflammation.
[2021-05-18 08:25] VITALS: BP 153/96; PULSE 76; RESP 18; O2SAT 99; BMI 23.6
--- NOTE | 2021-05-18 08:31 | ECG_ITS ---
Test Reason : SIEZURES Blood Pressure : / mmHG Vent. Rate : 072 BPM Atrial Rate : 072 BPM P-R Int : 146 ms QRS Dur : 106 ms QT Int : 382 ms P-R-T Axes : 080 106 076 degrees QTc Int : 418 ms Normal sinus rhythm Rightward axis Pulmonary disease pattern Minimal voltage criteria for LVH, may be normal variant ( Ej product ) Abnormal ECG When compared with ECG of 29-DEC-2020 14:26, No significant change was found Referred By: Ree Alvarez Electronically Signed By:ARIEL WHARTON MD
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
[2021-05-18 09:51] LABS: Basophils Absolute Auto 0.1 X10*3/uL (0.0-0.2); Basophils Percent Auto 0.6 % (0-2); Eosinophils Absolute Auto 0.2 X10*3/uL (0.0-0.4); Eosinophils Percent Auto 1.8 % (0-4); Hematocrit 45.3 % (42.0-52.0); Hemoglobin 15.5 g/dl (14.0-18.0); Imm Gran Abs Auto 0.03 X10*3/uL (0.00-0.03); Imm Gran Pct Auto 0.3 % (0.0-0.4); Lymphocytes Absolute Auto 2.9 X10*3/uL (1.2-4.9); Lymphocytes Percent Auto 27.6 % (20-40); MANUAL DIFF FLAG SCAN; Mean Corpuscular HGB Conc 34.2 g/dl (31.0-36.0); Mean Corpuscular Hemoglobin 30.4 pg (27.0-33.0); Mean Corpuscular Volume 88.8 fL (80.0-98.0); Monocytes Absolute Auto 0.8 X10*3/uL (0.1-1.2); Neutrophils Absolute Auto 6.5 x10*3/uL (2.0-8.3); Neutrophils Percent Auto 61.7 % (45-73); PLT CLUMP 1; Red Cell Distribution Width 13.9 % (11.0-16.0); SCAN SMEAR FLAG 1
[2021-05-18 09:59] LABS: Lactic Acid 1.1 mmol/L (0.5-2.0)
[2021-05-18 10:01] LABS: Ethanol < 10 mg/dL
[2021-05-18 10:04] LABS: Alanine Aminotransferase 17 U/L (0-40); Albumin Level 4.1 g/dL (3.5-5.0); Alkaline Phosphatase 105 U/L (39-117); Anion Gap 10 (12-20); Aspartate Amino Transferase 14 U/L (5-37); Bilirubin Direct < 0.2 mg/dL (0.0-0.5); Bilirubin Total 0.3 mg/dL (0.0-1.0); Blood Urea Nitrogen 7 mg/dL (9-16); Calcium 9.5 mg/dL (8.4-10.2); Carbon Dioxide 27 mmol/L (22-29); Chloride 101 mmol/L (96-108); Creatinine Clr Calc Pharmacy 125.4; Estimated Glomerular Filt Rate > 60; Glucose Random 102 mg/dL (60-115); Potassium 3.8 mmol/L (3.3-5.1); Sodium 134 mmol/L (135-145); Total Protein 7.3 g/dL (6.5-8.0)
[2021-05-18 10:08] LABS: COVID-19 Test Negative (Negative)
[2021-05-18 10:18] LABS: White Blood Count 10.5 X10*3/uL (4.8-10.8)
[2021-05-18 10:46] LABS: Appearance Urine CLEAR; Color Urine YELLOW; Glucose Urine UA NEG (NEG); Leukocyte Esterase Urine NEG (NEG); Nitrite Urine NEG (NEG); PH 5.5 (5.0-8.0); Urine Blood NEG (NEG); Urine Ketones NEG (NEG); Urine Protein NEG (NEG-TRACE)
--- NOTE | 2021-05-18 10:52 | PC.NURSE ---
PATIENT'S SISTER ARI CALLS AT THIS TIME REQUESTING A CALL BACK FROM SATHISH LARRY. CALL BACK #[phone]
[2021-05-18 11:00] LABS: Amphetamine Screen Urine Not Detected (Not Detect); Barbiturates, Urine Not Detected (Not Detect); Benzodiazepines Screen Urine Not Detected (Not Detect); Cannabinoid Screen Urine Not Detected (Not Detect); Cocaine Screen Urine Not Detected (Not Detect); Fentanyl, urine Not Detected (Not Detect); Opiate Screen Urine Not Detected (Not Detect); Phencyclidine Screen Urine Not Detected (Not Detect)
[2021-05-18 11:10] LABS: Phenytoin Dilantin 4.7 ug/mL (10.0-20.0)
[2021-05-18] MEDS: clonazePAM 0.5 MG TABLET PO (11:30)
[2021-05-18 11:41] LABS: SLIDE REVIEW VERIFIED
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
--- NOTE | 2021-05-18 14:51 | PC.NURSE ---
call to pharmacy made to for po oral supenion.
[2021-05-18 14:54] LABS: Prostate Specific Antigen 0.79 ng/mL (<0.05-4.0)
[2021-05-18] MEDS: Phenytoin Oral Susp 100 MG/4 ML ORAL.SUSP 60 MG PO (14:59)
[2021-05-18] MEDS: Enoxaparin Sodium 40 MG/0.4 ML SYRINGE SUBCUT (15:00)
[2021-05-18 15:18] VITALS: BP 139/85; PULSE 71; RESP 12; TEMP 36.9; O2SAT 97
--- NOTE | 2021-05-18 15:47 | PC.NURSE ---
Home pill container and medication brought up to pharmacy unopened by me. Left in custody of Joe.
--- NOTE | 2021-05-18 16:10 | PC.NURSE ---
report given to Santa LARRY in overflow. Plan is to go to bed 5
[2021-05-18 16:43] VITALS: BP 146/85; PULSE 68; RESP 18; TEMP 37.1; O2SAT 98
--- NOTE | 2021-05-18 16:50 | PC.NURSE ---
Pt received from main ER: Pt AOX3 with slow responses. Pt offers no current complaints. NSR noted on monitor and lungs clear. L arm chronic contracture noted. Pt abd soft and non-tender. Seizure precautions and bed rails wrapped.
[2021-05-18 20:07] VITALS: BP 125/69; PULSE 67; RESP 15; TEMP 36.7; O2SAT 97
[2021-05-18] MEDS: Sennosides 8.6 MG TABLET 17.2 MG PO (21:45)
[2021-05-18] MEDS: Lacosamide 100 MG TABLET 200 MG PO (21:45)
[2021-05-18] MEDS: PHENobarbitaL 30 MG TABLET PO (21:45)
[2021-05-18] MEDS: TiZANidine HCL 4 MG TABLET PO (21:45)
[2021-05-19 00:46] VITALS: BP 95/46; PULSE 57; RESP 14; TEMP 36.9; O2SAT 96
[2021-05-19 04:15] VITALS: BP 110/52; PULSE 61; RESP 16; TEMP 36.9; O2SAT 93
[2021-05-19 06:47] LABS: Hematocrit 45.2 % (42.0-52.0); Hemoglobin 15.2 g/dl (14.0-18.0); Mean Corpuscular HGB Conc 33.6 g/dl (31.0-36.0); Mean Corpuscular Volume 89.2 fL (80.0-98.0); Mean Platelet Volume 10.1 fL (9.4-12.4); Platelet Count 328 X10*3/uL (160-400); Red Blood Count 5.07 X10*6/uL (4.60-5.80); White Blood Count 7.7 X10*3/uL (4.8-10.8)
[2021-05-19 06:57] LABS: Anion Gap 13 (12-20); Blood Urea Nitrogen 9 mg/dL (9-16); Calcium 9.4 mg/dL (8.4-10.2); Carbon Dioxide 26 mmol/L (22-29); Chloride 104 mmol/L (96-108); Creatinine Clr Calc Pharmacy 125.4; Estimated Glomerular Filt Rate > 60; Glucose Random 84 mg/dL (60-115); Potassium 4.1 mmol/L (3.3-5.1); Sodium 139 mmol/L (135-145)
[2021-05-19 07:54] VITALS: BP 119/70; PULSE 68; RESP 14; TEMP 36.6; O2SAT 95
[2021-05-19] MEDS: 0.9 % Sodium Chloride Flush 3 ML SYRINGE IVFLUSH (07:55)
[2021-05-19] MEDS: TiZANidine HCL 4 MG TABLET PO (08:56)
[2021-05-19] MEDS: PHENobarbitaL 30 MG TABLET PO (08:56)
[2021-05-19] MEDS: Folic Acid 1 MG TABLET PO (08:56)
[2021-05-19] MEDS: Lacosamide 100 MG TABLET 200 MG PO (08:56)
[2021-05-19] MEDS: Phenytoin Oral Susp 100 MG/4 ML ORAL.SUSP 180 MG PO (10:58)
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
[2021-05-19 12:13] VITALS: BP 135/83; PULSE 65; RESP 13; O2SAT 97
[2021-05-24 13:06] LABS: Lacosamide 6.6 mcg/mL
== END 2021-05-19 14:37 | disposition home or self-care (01) | DRG 101 ==
LOC: HO.ED 10:48 → HO.EDOVER 14:43
PROVIDERS: Admitting Provider Family Medicine; Emergency Provider Emergency Medicine; PCP Internal Medicine; Visit Provider Hospitalist
DX: G40.909 Epilepsy, unspecified, not intractable, without status epilepticus (principal); G81.14 Spastic hemiplegia affecting left nondominant side; R91.8 Other nonspecific abnormal finding of lung field; F17.210 Nicotine dependence, cigarettes, uncomplicated; Z71.6 Tobacco abuse counseling; Z20.822 Contact with and (suspected) exposure to COVID-19; Z79.899 Other long term (current) drug therapy
CPT/HCPCS: 36415; 70450; 71250; 80048; 80076; 80185; 80235; 80307; 81003; 82077; 83605; 84153; 85025; 85027; 87635; 93005; 99284; 99285; J1650

== ENCOUNTER 2021-05-21 12:32 | Observation (INO) | payer OTHER, SELFPAY ==
--- NOTE | ~2021-05-21 | CT_ITS ---
EXAMINATION: CT HEAD WITHOUT CONTRAST CLINICAL INFORMATION: Altered mental status change COMPARISON: CT brain 05/18/2021, 12/29/2020, 05/29/2010 and 03/31/2006 TECHNIQUE: Contiguous axial imaging was performed from the skull base to vertex without intravenous administration of contrast. This CT examination was performed using dose optimization techniques as appropriate, variously including the following: *Automated exposure control *Adjustment of mA and/or kV according to patient size (this includes techniques or standardized protocols for targeted exams where dose is matched to indication/reason for exam; i.e. extremities or head) *Use of iterative reconstruction technique DLP: 759 mGy-cm FINDINGS: There is no evidence of acute intracranial hemorrhage or territorial infarction. There is significant right frontoparietal lobe cerebral loss with chronic ex vacuo dilatation of right lateral ventricle. These findings is unchanged to last 2 CT brain 6 dating to 10/18/[address] brain 05/29/2010. There are interhemispheric anterior and posterior dural calcifications, stable. Also visualized are tentorial dense cancel calcifications. No abnormal mass effect or midline shift is seen. Sanz to white matter differentiation is well preserved. No extra-axial fluid collections are identified. Bone windows reveal remote right sided craniotomy changes. No calvarial fracture or scalp abnormality seen. Bilateral paranasal sinuses and mastoid air cells are well-aerated. CT/CT head/brain wo con IMPRESSION: No acute intracranial process seen. Chronic postsurgical changes along the right frontoparietal lobe with significant cerebral volume loss and ex vacuo dilatation of right lateral ventricle extending as far as CT brain 03/31/2006 and 05/29/2010.
[2021-05-21 12:38] VITALS: BP 146/105; BP 160/100; PULSE 84; PULSE 90; RESP 16; TEMP 36.7; O2SAT 100; O2SAT 98; BMI 22.1
--- NOTE | 2021-05-21 12:42 | ECG_ITS ---
Test Reason : altered mental Blood Pressure : / mmHG Vent. Rate : 066 BPM Atrial Rate : 066 BPM P-R Int : 148 ms QRS Dur : 100 ms QT Int : 410 ms P-R-T Axes : 066 099 073 degrees QTc Int : 429 ms Normal sinus rhythm Rightward axis Borderline ECG When compared with ECG of 18-MAY-2021 08:36, No significant change was found Referred By: Venkat Beckett Electronically Signed By:JOCELYNE CID
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
[2021-05-21 13:20] VITALS: PULSE 73
[2021-05-21] MEDS: 0.9 % Sodium Chloride 1,000 ML 999 ML IVCONT (13:22)
[2021-05-21 14:13] LABS: MANUAL DIFF FLAG NO
[2021-05-21 14:17] LABS: Basophils Absolute Auto 0.1 X10*3/uL (0.0-0.2); Basophils Percent Auto 0.7 % (0-2); Eosinophils Absolute Auto 0.3 X10*3/uL (0.0-0.4); Eosinophils Percent Auto 3.3 % (0-4); Hematocrit 45.9 % (42.0-52.0); Hemoglobin 15.6 g/dl (14.0-18.0); Imm Gran Abs Auto 0.02 X10*3/uL (0.00-0.03); Imm Gran Pct Auto 0.2 % (0.0-0.4); Lymphocytes Absolute Auto 3.3 X10*3/uL (1.2-4.9); Lymphocytes Percent Auto 35.1 % (20-40); Mean Corpuscular Hemoglobin 30.5 pg (27.0-33.0); Mean Corpuscular Volume 89.6 fL (80.0-98.0); Mean Platelet Volume 9.9 fL (9.4-12.4); Monocytes Absolute Auto 0.9 X10*3/uL (0.1-1.2); Monocytes Percent Auto 9.4 % (2-11); Neutrophils Absolute Auto 4.8 x10*3/uL (2.0-8.3); Neutrophils Percent Auto 51.3 % (45-73); Platelet Count 318 X10*3/uL (160-400); Red Blood Count 5.12 X10*6/uL (4.60-5.80); White Blood Count 9.4 X10*3/uL (4.8-10.8)
[2021-05-21 14:31] LABS: Alanine Aminotransferase 19 U/L (0-40); Albumin Level 4.3 g/dL (3.5-5.0); Alkaline Phosphatase 98 U/L (39-117); Anion Gap 14 (12-20); Aspartate Amino Transferase 13 U/L (5-37); Bilirubin Total 0.2 mg/dL (0.0-1.0); Blood Urea Nitrogen 7 mg/dL (9-16); Calcium 9.5 mg/dL (8.4-10.2); Carbon Dioxide 26 mmol/L (22-29); Chloride 102 mmol/L (96-108); Creatinine Clr Calc Pharmacy 124.1; Estimated Glomerular Filt Rate > 60; Glucose Random 92 mg/dL (60-115); Potassium 4.1 mmol/L (3.3-5.1); Sodium 138 mmol/L (135-145); Total Protein 7.4 g/dL (6.5-8.0)
[2021-05-21 14:34] LABS: Phenytoin Dilantin 16.9 ug/mL (10.0-20.0)
[2021-05-21 14:37] LABS: Troponin-I High Sensitivity 3.9 ng/L (<3.5-35.0)
[2021-05-21] MEDS: LORazepam 0.5 MG TABLET PO (15:11)
[2021-05-21 15:13] VITALS: BP 141/86; PULSE 70; RESP 16; O2SAT 99
[2021-05-21 16:12] LABS: COVID-19 Test Negative (Negative)
[2021-05-21 16:31] LABS: Appearance Urine CLEAR; Color Urine YELLOW; Glucose Urine UA NEG (NEG); Leukocyte Esterase Urine NEG (NEG); Nitrite Urine NEG (NEG); Urine Blood NEG (NEG); Urine Ketones NEG (NEG); Urine Protein NEG (NEG-TRACE)
[2021-05-21 16:42] LABS: Amphetamine Screen Urine Not Detected (Not Detect); Barbiturates, Urine POSITIVE (Not Detect); Benzodiazepines Screen Urine Not Detected (Not Detect); Cannabinoid Screen Urine Not Detected (Not Detect); Cocaine Screen Urine Not Detected (Not Detect); Fentanyl, urine Not Detected (Not Detect); Opiate Screen Urine Not Detected (Not Detect); Phencyclidine Screen Urine Not Detected (Not Detect)
[2021-05-21 16:44] LABS: Amorphous Sediment Urine TRACE /LPF; RBC Urine 0 /HPF (0); Squamous Epithelial Cell Urine TRACE /LPF; WBC Urine 0 /HPF (0-4)
--- NOTE | 2021-05-21 16:44 | PHA.MEDREC ---
Addendum entered by Cristy Sanchez [facility] 05/21/21 20:19: added Trulance 3 mg to med list because it is included among all pts pill boxed meds that were brought in from home. Pt to use own Linzess, Vimpat, and Fycompa which will be sent from pharmacy for each dose. Original Note: Pharmacy Consult ? Medication Reconciliation Pharmacy has completed the medication reconciliation. Spoke with pt. Weekly vitamin D is on Sundays
[2021-05-21 16:45] LABS: Hyaline Casts Urine 0-2 /LPF
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
[2021-05-21] MEDS: PHENobarbitaL 30 MG TABLET PO (20:19)
[2021-05-21] MEDS: TiZANidine HCL 4 MG TABLET PO (20:19)
[2021-05-21] MEDS: Enoxaparin Sodium 40 MG/0.4 ML SYRINGE SUBCUT (20:19)
[2021-05-21] MEDS: Sennosides 8.6 MG TABLET 17.2 MG PO (20:20)
[2021-05-21 20:38] VITALS: BP 149/96; PULSE 72; RESP 20; TEMP 36.7; O2SAT 98
[2021-05-21] MEDS: Phenytoin Oral Susp 100 MG/4 ML ORAL.SUSP 180 MG PO (21:56)
[2021-05-21 23:04] VITALS: BP 119/53; PULSE 86; RESP 20; TEMP 36.3; O2SAT 96
[2021-05-22] MEDS: 0.9 % Sodium Chloride Flush 3 ML SYRINGE IVFLUSH ×3 (04:50→17:40)
[2021-05-22 07:00] VITALS: BP 100/60; PULSE 64; RESP 18; TEMP 37.2; O2SAT 99
[2021-05-22 10:57] VITALS: BP 124/59; PULSE 69; RESP 18; TEMP 36.2; O2SAT 96
[2021-05-22] MEDS: Folic Acid 1 MG TABLET PO (11:08)
[2021-05-22] MEDS: PHENobarbitaL 30 MG TABLET PO (11:09)
[2021-05-22] MEDS: Lacosamide 100 MG TABLET 200 MG PO (11:09)
[2021-05-22] MEDS: Phenytoin Oral Susp 100 MG/4 ML ORAL.SUSP 180 MG PO (11:09)
[2021-05-22] MEDS: TiZANidine HCL 4 MG TABLET PO (11:09)
--- NOTE | 2021-05-22 11:19 | MHC.CM.PN ---
pt is obs he lives with sister has no services he is vax x 3 he will have transport home pt has outpt thru n
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
[2021-05-22 15:28] VITALS: BP 111/72; PULSE 82; RESP 20; TEMP 37.3; O2SAT 96
--- NOTE | 2021-05-22 15:48 | MHC.CM.PN ---
pt to be evaluated by care team prior to dc per isidro mcdermott
--- NOTE | 2021-05-22 16:22 | MHC.CM.PN ---
care team to see pt prior to dc dc pending care team eval pt to return to [facility]
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
== END 2021-05-22 18:50 | disposition home health service (06) ==
LOC: HO.ED 15:45 → HO.EDOVER 16:46 → HO.IMC 19:27
PROVIDERS: Admitting Provider Hospitalist; Emergency Provider Emergency Medicine; PCP Internal Medicine; Visit Provider Hospitalist
DX: R41.82 Altered mental status, unspecified (principal); G40.409 Other generalized epilepsy and epileptic syndromes, not intractable, without status epilepticus; R51.9 Headache, unspecified; S06.890S Other specified intracranial injury without loss of consciousness, sequela; G81.94 Hemiplegia, unspecified affecting left nondominant side; H54.62 Unqualified visual loss, left eye, normal vision right eye; X58.XXXS Exposure to other specified factors, sequela; E55.9 Vitamin D deficiency, unspecified; F17.210 Nicotine dependence, cigarettes, uncomplicated; Z20.822 Contact with and (suspected) exposure to COVID-19; Z79.899 Other long term (current) drug therapy; Z53.29 Procedure and treatment not carried out because of patient's decision for other reasons
CPT/HCPCS: 36415; 70450; 80053; 80184; 80185; 80307; 81001; 84484; 85025; 87635; 93005; 96360; 96372; 99219; 99285; J1650

== ENCOUNTER 2021-05-25 15:38 | Outpatient (REF) | payer OTHER, SELFPAY ==
[2021-05-25 17:10] LABS: Phenytoin Dilantin 17.8 ug/mL (10.0-20.0)
== END 2021-05-25 15:39 | disposition home or self-care (01) ==
LOC: HO.LAB 15:38
PROVIDERS: PCP Internal Medicine; Visit Provider Psychiatry & Neurology Neurology
DX: G40.909 Epilepsy, unspecified, not intractable, without status epilepticus (principal)
CPT/HCPCS: 36415; 80185

== ENCOUNTER 2021-06-02 10:19 | Outpatient (REF) | payer OTHER, SELFPAY ==
[2021-06-02 10:48] LABS: MANUAL DIFF FLAG NO
[2021-06-02 11:49] LABS: Basophils Absolute Auto 0.1 X10*3/uL (0.0-0.2); Basophils Percent Auto 0.8 % (0-2); Eosinophils Absolute Auto 0.2 X10*3/uL (0.0-0.4); Eosinophils Percent Auto 1.9 % (0-4); Hemoglobin 17.3 g/dl (14.0-18.0); Imm Gran Abs Auto 0.05 X10*3/uL (0.00-0.03); Imm Gran Pct Auto 0.5 % (0.0-0.4); Lymphocytes Absolute Auto 2.8 X10*3/uL (1.2-4.9); Lymphocytes Percent Auto 27.5 % (20-40); Mean Corpuscular HGB Conc 33.9 g/dl (31.0-36.0); Mean Corpuscular Hemoglobin 29.8 pg (27.0-33.0); Mean Corpuscular Volume 87.9 fL (80.0-98.0); Mean Platelet Volume 11.3 fL (9.4-12.4); Monocytes Absolute Auto 0.9 X10*3/uL (0.1-1.2); Monocytes Percent Auto 8.4 % (2-11); Neutrophils Absolute Auto 6.3 x10*3/uL (2.0-8.3); Neutrophils Percent Auto 60.9 % (45-73); Platelet Count 230 X10*3/uL (160-400); Red Cell Distribution Width 13.4 % (11.0-16.0); White Blood Count 10.3 X10*3/uL (4.8-10.8)
[2021-06-02 12:27] LABS: Phenytoin Dilantin 9.3 ug/mL (10.0-20.0)
[2021-06-02 12:34] LABS: TSH reflex Free T4 1.28 uIU/mL (0.32-4.0); Vitamin D 25-OH Total 39.2 ng/mL (>30)
[2021-06-02 12:39] LABS: Alanine Aminotransferase 20 U/L (0-40); Albumin Level 4.8 g/dL (3.5-5.0); Alkaline Phosphatase 146 U/L (39-117); Anion Gap 16 (12-20); Aspartate Amino Transferase 15 U/L (5-37); Bilirubin Total 0.2 mg/dL (0.0-1.0); Blood Urea Nitrogen 6 mg/dL (9-16); Carbon Dioxide 26 mmol/L (22-29); Chloride 95 mmol/L (96-108); Cholesterol 189 mg/dL; Estimated Glomerular Filt Rate > 60; Glucose Fasting 97 mg/dL (60-99); HDL Cholesterol 53 mg/dL; LDL Cholesterol Calculated 114 mg/dl; Potassium 4.9 mmol/L (3.3-5.1); Sodium 132 mmol/L (135-145); Total Protein 8.5 g/dL (6.5-8.0); Triglycerides 110 mg/dL
== END 2021-06-02 10:20 | disposition home or self-care (01) ==
LOC: HO.LAB 10:19
PROVIDERS: Absent Provider Psychiatry & Neurology Neurology; PCP Internal Medicine; Visit Provider Internal Medicine
DX: G40.909 Epilepsy, unspecified, not intractable, without status epilepticus (principal); R41.82 Altered mental status, unspecified; I10 Essential (primary) hypertension; E78.00 Pure hypercholesterolemia, unspecified; E55.9 Vitamin D deficiency, unspecified; Z51.81 Encounter for therapeutic drug level monitoring; Z79.899 Other long term (current) drug therapy
CPT/HCPCS: 36415; 80053; 80061; 80185; 80235; 80339; 82306; 84443; 85025

== ENCOUNTER 2021-06-06 14:43 | Outpatient (REF) | payer OTHER, SELFPAY ==
[2021-06-08 07:16] LABS: Phenytoin, Free/Unbound 0.6 mg/L (1.0-2.0)
== END 2021-06-06 14:44 | disposition home or self-care (01) ==
LOC: HO.LAB 14:43
PROVIDERS: Psychiatry & Neurology Neurology; PCP Internal Medicine; Visit Provider Psychiatry & Neurology Neurology
DX: G40.909 Epilepsy, unspecified, not intractable, without status epilepticus (principal)
CPT/HCPCS: 36415; 80186

== ENCOUNTER 2021-06-20 13:07 | Outpatient (REF) | payer OTHER, SELFPAY | END 2021-06-20 13:08 | disposition home or self-care (01) | LOC: HO.LAB 13:07 | PROVIDERS: PCP Internal Medicine; Visit Provider Psychiatry & Neurology Neurology | DX: G40.909 Epilepsy, unspecified, not intractable, without status epilepticus (principal); N40.1 Benign prostatic hyperplasia with lower urinary tract symptoms; N13.8 Other obstructive and reflux uropathy; R33.9 Retention of urine, unspecified; Z79.899 Other long term (current) drug therapy | CPT/HCPCS: 36415; 51798; 80185; 99212 ==

== ENCOUNTER 2021-06-28 16:36 | Outpatient (REF) | payer OTHER, SELFPAY ==
[2021-06-28 18:13] LABS: Phenytoin Dilantin 14.2 ug/mL (10.0-20.0)
[2021-06-28 18:28] LABS: TSH reflex Free T4 1.41 uIU/mL (0.32-4.0)
== END 2021-06-28 16:37 | disposition home or self-care (01) ==
LOC: HO.LAB 16:36
PROVIDERS: PCP Internal Medicine; Visit Provider Psychiatry & Neurology Neurology
DX: G40.909 Epilepsy, unspecified, not intractable, without status epilepticus (principal); E78.00 Pure hypercholesterolemia, unspecified; Z79.899 Other long term (current) drug therapy
CPT/HCPCS: 36415; 80185; 84443

== ENCOUNTER 2021-07-05 16:00 | Emergency (ER) | payer OTHER, SELFPAY ==
--- NOTE | ~2021-07-05 | CT_ITS ---
EXAMINATION: CT HEAD WITHOUT CONTRAST CLINICAL INFORMATION: Dizziness. COMPARISON: CT head dated from 05/21/2021. TECHNIQUE: Contiguous axial imaging was performed from the skull base to vertex without intravenous administration of contrast. This CT examination was performed using dose optimization techniques as appropriate, variously including the following: *Automated exposure control *Adjustment of mA and/or kV according to patient size (this includes techniques or standardized protocols for targeted exams where dose is matched to indication/reason for exam; i.e. extremities or head) *Use of iterative reconstruction technique DLP: 699 mGy-cm FINDINGS: Remote right-sided and frontal craniotomy changes with significant volume loss in the right frontoparietal lobes with chronic ex vacuo dilatation of the right lateral ventricle. Frontoparietal sulcal prominence and encephalomalacia again evident in the right side. Scattered dural calcifications are again noted. Next There is no evidence of acute intracranial hemorrhage or territorial infarction. There is no loss of steve to white matter differentiation. No abnormal mass effect or midline shift. No extra-axial fluid collections. A small lipoma is redemonstrated in the midline suprasellar cistern. No acute osseous or soft tissue abnormalities. Mucosal thickening of the paranasal sinuses with scattered retention cysts in the maxillary sinuses. The mastoids and middle ear cavities are clear. CT/CT head/brain wo con IMPRESSION: Chronic postsurgical changes and significant volume loss in the right frontoparietal lobes with ex vacuo dilatation of the right lateral ventricle. No acute intracranial abnormalities.
--- NOTE | ~2021-07-05 | XR_ITS ---
EXAMINATION: XR CHEST CLINICAL INFORMATION: Dizziness and weakness COMPARISON: None TECHNIQUE: Frontal view of the chest was obtained. FINDINGS: An implanted stimulator is present in the left chest wall with leads extending up the left neck. No significant abnormality is noted involving the heart, lungs, mediastinum, bony thorax or soft tissues. Old healed right rib fractures are seen. XR/XR chest 1V IMPRESSION: No acute intrathoracic disease
[2021-07-05 16:53] VITALS: BP 150/102; PULSE 95; RESP 16; TEMP 36.7; O2SAT 94
[2021-07-05 17:12] VITALS: BP 150/102; PULSE 95; RESP 16; TEMP 36.7; O2SAT 94; BMI 21.1
--- NOTE | 2021-07-05 18:36 | ECG_ITS ---
Test Reason : DIZZINESS Blood Pressure : / mmHG Vent. Rate : 073 BPM Atrial Rate : 073 BPM P-R Int : 140 ms QRS Dur : 098 ms QT Int : 402 ms P-R-T Axes : 067 095 071 degrees QTc Int : 442 ms Normal sinus rhythm Rightward axis Borderline ECG When compared with ECG of 21-MAY-2021 13:51, No significant change was found Referred By: Tashi Goss Electronically Signed By:JOCELYNE CID
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
[2021-07-05 18:46] VITALS: BP 146/97
--- NOTE | 2021-07-05 19:21 | PHA.MEDREC ---
Pharmacy Consult ? Medication Reconciliation Pharmacy has completed the medication reconciliation. Oxcarbazepine decreased to 150 mg bid per daughter
--- NOTE | 2021-07-05 20:11 | PC.NURSE ---
provider notified that nurses were unable to access for blood work/IV. hx of EJ during prior admission.
[2021-07-05 21:06] LABS: MANUAL DIFF FLAG NO
[2021-07-05] MEDS: 0.9 % Sodium Chloride 1,000 ML 999 ML IV ×2 (21:07→21:34)
[2021-07-05 21:08] LABS: Basophils Percent Auto 0.2 % (0-2); Eosinophils Absolute Auto 0.4 X10*3/uL (0.0-0.4); Eosinophils Percent Auto 2.7 % (0-4); Hematocrit 44.9 % (42.0-52.0); Hemoglobin 15.2 g/dl (14.0-18.0); Imm Gran Abs Auto 0.05 X10*3/uL (0.00-0.03); Imm Gran Pct Auto 0.4 % (0.0-0.4); Lymphocytes Percent Auto 28.1 % (20-40); Mean Corpuscular HGB Conc 33.9 g/dl (31.0-36.0); Mean Corpuscular Hemoglobin 29.5 pg (27.0-33.0); Mean Platelet Volume 10.7 fL (9.4-12.4); Monocytes Absolute Auto 1.1 X10*3/uL (0.1-1.2); Monocytes Percent Auto 7.5 % (2-11); Neutrophils Absolute Auto 8.7 x10*3/uL (2.0-8.3); Neutrophils Percent Auto 61.1 % (45-73); Platelet Count 244 X10*3/uL (160-400); Red Blood Count 5.16 X10*6/uL (4.60-5.80); Red Cell Distribution Width 13.7 % (11.0-16.0); White Blood Count 14.2 X10*3/uL (4.8-10.8)
[2021-07-05 21:18] LABS: Lactic Acid 1.1 mmol/L (0.5-2.0)
[2021-07-05 21:27] LABS: B Type Natriuretic Peptide < 10 pg/mL (<100); Troponin-I High Sensitivity < 3.5 ng/L (<3.5-35.0)
--- NOTE | 2021-07-05 21:41 | PC.NURSE ---
pt a&ox3, vss, labs drawn by provider via ultrasound, family at bedside - spoke w myself and provider regarding [place] [facility] [place] current medical/psych issues, per niece pt was discharged following admission without family notification and he is unable to get home without family present, niece feels that pt doesn't need antidepressants and that his seizures/aggressive behaviour at home/episode of vomiting were not appropriately addressed during his prior admissions.
[2021-07-05 21:47] LABS: Influenza A PCR NEGATIVE (Negative); Influenza B PCR NEGATIVE (Negative); Resp Syncy Virus RNA Qual PCR NEGATIVE (Negative); SARS COV2 PCR INHOUSE NEGATIVE (Negative)
[2021-07-05 21:49] LABS: Alanine Aminotransferase 13 U/L (0-40); Albumin Level 3.5 g/dL (3.5-5.0); Alkaline Phosphatase 103 U/L (39-117); Anion Gap 14 (12-20); Aspartate Amino Transferase 14 U/L (5-37); Bilirubin Total 0.2 mg/dL (0.0-1.0); Blood Urea Nitrogen 8 mg/dL (9-16); Calcium 8.1 mg/dL (8.4-10.2); Carbon Dioxide 23 mmol/L (22-29); Chloride 101 mmol/L (96-108); Creatinine Clr Calc Pharmacy 133.1; Estimated Glomerular Filt Rate > 60; Glucose Random 94 mg/dL (60-115); Sodium 134 mmol/L (135-145); Total Protein 6.6 g/dL (6.5-8.0)
[2021-07-05 21:50] LABS: Appearance Urine CLEAR; Color Urine DK YELLOW; Glucose Urine UA NEG (NEG); Leukocyte Esterase Urine NEG (NEG); Nitrite Urine NEG (NEG); UACC Culture Trigger NO; Urine Blood NEG (NEG); Urine Ketones NEG (NEG); Urine Protein 1+ MG/DL (NEG-TRACE)
[2021-07-05 21:53] LABS: Alanine Aminotransferase 16 U/L (0-40); Albumin Level 3.5 g/dL (3.5-5.0); Alkaline Phosphatase 104 U/L (39-117); Anion Gap 13 (12-20); Aspartate Amino Transferase 13 U/L (5-37); Bilirubin Direct < 0.2 mg/dL (0.0-0.5); Bilirubin Total 0.2 mg/dL (0.0-1.0); Blood Urea Nitrogen 8 mg/dL (9-16); Calcium 8.2 mg/dL (8.4-10.2); Carbon Dioxide 25 mmol/L (22-29); Chloride 100 mmol/L (96-108); Creatinine Clr Calc Pharmacy 135.2; Estimated Glomerular Filt Rate > 60; Glucose Random 93 mg/dL (60-115); Lipase 26 U/L (8-78); Potassium 3.9 mmol/L (3.3-5.1); Sodium 134 mmol/L (135-145); Total Protein 6.6 g/dL (6.5-8.0)
[2021-07-05 21:59] LABS: Mucus Urine 3+ /LPF; RBC Urine 0 /HPF (0); Squamous Epithelial Cell Urine TRACE /LPF; WBC Urine 0-2 /HPF (0-4)
[2021-07-05 22:10] VITALS: BP 152/83; PULSE 62; RESP 21; TEMP 37.1; O2SAT 92
--- NOTE | 2021-07-05 22:46 | PC.NURSE ---
IV infiltrated, IV flds stopped, provider started new 20G IV right hand, flds restarted.
--- NOTE | 2021-07-05 23:45 | PC.NURSE ---
Assumed care of pt Pt resting on stretcher
[2021-07-06] VITALS (7 sets, daily range): BP systolic 124–146; BP diastolic 76–96; PULSE 61–81; RESP 15–20; O2SAT 91–96
--- NOTE | 2021-07-06 00:57 | PC.NURSE ---
IVF infusing. First liter finished Pt tolerated well Will continue to monitor
--- NOTE | 2021-07-06 05:14 | PC.NURSE ---
N online referral completed.
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
--- NOTE | 2021-07-06 10:27 | PC.NURSE ---
Pt alert, comfortable, needs met, sister Dalila at bedside, meal ordered for now, call rivera within reach.
[2021-07-06] MEDS: OXcarbazepine 150 MG TABLET PO (11:33)
[2021-07-06] MEDS: Sertraline HCL 50 MG TABLET PO (11:34)
[2021-07-06] MEDS: PHENobarbitaL 30 MG TABLET PO (11:34)
[2021-07-06] MEDS: Phenytoin Sodium Extended 100 MG CAPSULE 200 MG PO (11:34)
[2021-07-06] MEDS: Lacosamide 100 MG TABLET 200 MG PO (11:35)
[2021-07-06] MEDS: Folic Acid 1 MG TABLET PO (11:35)
--- NOTE | 2021-07-06 12:39 | PC.NURSE ---
pt's sister and guardian Dalila Sandy left telephone ([phone]) number to be contacted when [facility] arrives. pt in room resting quietly. no complaints. will continue to monitor.
--- NOTE | 2021-07-06 14:22 | PC.NURSE ---
Pt alert, watching tv, Pt denies pain, call light in reach.
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
== END 2021-07-06 17:18 | disposition home or self-care (01) ==
PROVIDERS: Physician Assistant; Emergency Provider Emergency Medicine; PCP Internal Medicine
DX: E86.0 Dehydration (principal); R42 Dizziness and giddiness; R51.9 Headache, unspecified; R06.02 Shortness of breath; Z79.899 Other long term (current) drug therapy; F17.210 Nicotine dependence, cigarettes, uncomplicated; Z71.6 Tobacco abuse counseling; Z20.822 Contact with and (suspected) exposure to COVID-19
CPT/HCPCS: 0241U; 36415; 70450; 71045; 80048; 80053; 80076; 80185; 81001; 83605; 83690; 83880; 84484; 85025; 87040; 93005; 96360; 96361; 99285

== ENCOUNTER 2021-07-18 17:01 | Outpatient (REF) | payer OTHER, SELFPAY ==
[2021-07-18 18:31] LABS: Alanine Aminotransferase 26 U/L (0-40); Albumin Level 3.9 g/dL (3.5-5.0); Alkaline Phosphatase 87 U/L (39-117); Anion Gap 18 (12-20); Aspartate Amino Transferase 23 U/L (5-37); Bilirubin Total 0.2 mg/dL (0.0-1.0); Blood Urea Nitrogen 10 mg/dL (9-16); Calcium 9.1 mg/dL (8.4-10.2); Carbon Dioxide 21 mmol/L (22-29); Chloride 106 mmol/L (96-108); Estimated Glomerular Filt Rate > 60; Glucose Random 83 mg/dL (60-115); Potassium 5.7 mmol/L (3.3-5.1); Sodium 139 mmol/L (135-145); Total Protein 7.4 g/dL (6.5-8.0)
[2021-07-18 18:54] LABS: Phenytoin Dilantin 6.8 ug/mL (10.0-20.0)
== END 2021-07-18 17:02 | disposition home or self-care (01) ==
LOC: HO.LAB 17:01
PROVIDERS: PCP Internal Medicine; Visit Provider Internal Medicine
DX: G40.909 Epilepsy, unspecified, not intractable, without status epilepticus (principal); Z79.899 Other long term (current) drug therapy
CPT/HCPCS: 36415; 80053; 80185

== ENCOUNTER 2021-08-01 14:22 | Outpatient (REF) | payer OTHER, SELFPAY ==
[2021-08-01 15:41] LABS: Phenytoin Dilantin 14.7 ug/mL (10.0-20.0)
== END 2021-08-01 14:23 | disposition home or self-care (01) ==
LOC: HO.LAB 14:22
PROVIDERS: PCP Internal Medicine; Visit Provider Nurse Practitioner Family
DX: R56.9 Unspecified convulsions (principal); Z79.899 Other long term (current) drug therapy
CPT/HCPCS: 36415; 80185

== ENCOUNTER → 2021-08-21 10:49 | Outpatient (BNVA) | payer OTHER, SELFPAY | PROVIDERS: PCP Internal Medicine; Referring Provider Internal Medicine; Visit Provider Nurse Practitioner Family | DX: Z01.818 Encounter for other preprocedural examination (principal); K59.09 Other constipation; R56.9 Unspecified convulsions | CPT/HCPCS: 99212 ==

== ENCOUNTER 2022-01-19 13:30 | Emergency (ER) | payer OTHER, SELFPAY ==
[2022-01-19 13:43] VITALS: BP 132/82; BP 135/90; PULSE 76; PULSE 82; RESP 16; TEMP 37.3; O2SAT 96; BMI 20.5
--- NOTE | 2022-01-19 13:51 | ECG_ITS ---
Test Reason : seizure Blood Pressure : / mmHG Vent. Rate : 065 BPM Atrial Rate : 065 BPM P-R Int : 162 ms QRS Dur : 100 ms QT Int : 398 ms P-R-T Axes : 065 104 062 degrees QTc Int : 413 ms Normal sinus rhythm Possible Left atrial enlargement Rightward axis Borderline ECG When compared with ECG of 05-JUL-2021 18:47, No significant change was found Referred By: Ny Beckford Electronically Signed By:ANDI ALEGRIA
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
[2022-01-19 13:55] VITALS: BP 132/82; PULSE 67; RESP 22; TEMP 37.3; O2SAT 95
--- NOTE | 2022-01-19 13:58 | PC.NURSE ---
Pt V/S are stable, pt is a/o x 4, pt was placed in seizure precaution d/t hx of seizure. Pt does not recall what happened, and RN connected him to the telemetry. The telemetry shoes NSR with slightly elevated t -waves, EKG is completed. Will continue to monitor.
[2022-01-19] MEDS: LORazepam 1 MG TABLET PO (14:09)
--- NOTE | 2022-01-19 14:10 | PC.NURSE ---
Pt left arm is not able to take BP nor any labs. Pt had meds administer as order.
[2022-01-19 14:29] LABS: MANUAL DIFF FLAG NO
[2022-01-19 14:30] LABS: Basophils Absolute Auto 0.1 X10*3/uL (0.0-0.2); Basophils Percent Auto 0.7 % (0-2); Eosinophils Absolute Auto 0.5 X10*3/uL (0.0-0.4); Eosinophils Percent Auto 4.4 % (0-4); Hematocrit 43.8 % (42.0-52.0); Hemoglobin 14.8 g/dl (14.0-18.0); Imm Gran Abs Auto 0.04 X10*3/uL (0.00-0.03); Imm Gran Pct Auto 0.4 % (0.0-0.4); Lymphocytes Absolute Auto 2.8 X10*3/uL (1.2-4.9); Lymphocytes Percent Auto 26.3 % (20-40); Mean Corpuscular HGB Conc 33.8 g/dl (31.0-36.0); Mean Corpuscular Hemoglobin 30.3 pg (27.0-33.0); Mean Corpuscular Volume 89.6 fL (80.0-98.0); Mean Platelet Volume 9.7 fL (9.4-12.4); Monocytes Absolute Auto 0.7 X10*3/uL (0.1-1.2); Monocytes Percent Auto 6.4 % (2-11); Neutrophils Absolute Auto 6.6 x10*3/uL (2.0-8.3); Neutrophils Percent Auto 61.8 % (45-73); Platelet Count 304 X10*3/uL (160-400); Red Blood Count 4.89 X10*6/uL (4.60-5.80); Red Cell Distribution Width 13.8 % (11.0-16.0); White Blood Count 10.7 X10*3/uL (4.8-10.8)
[2022-01-19 14:45] LABS: Ethanol < 10 mg/dL
[2022-01-19 14:52] LABS: Alanine Aminotransferase 18 U/L (0-40); Albumin Level 4.1 g/dL (3.5-5.0); Alkaline Phosphatase 103 U/L (39-117); Anion Gap 15 (12-20); Aspartate Amino Transferase 14 U/L (5-37); Bilirubin Direct < 0.2 mg/dL (0.0-0.5); Bilirubin Total 0.2 mg/dL (0.0-1.0); Blood Urea Nitrogen 11 mg/dL (9-16); Calcium 8.8 mg/dL (8.4-10.2); Carbon Dioxide 25 mmol/L (22-29); Chloride 100 mmol/L (96-108); Estimated Glomerular Filt Rate > 60; Glucose Random 87 mg/dL (60-115); Potassium 4.4 mmol/L (3.3-5.1); Sodium 136 mmol/L (135-145); Total Protein 6.7 g/dL (6.5-8.0)
[2022-01-19 14:54] LABS: Magnesium 1.8 mg/dL (1.6-2.6)
[2022-01-19 15:07] LABS: COVID-19 Test Negative (Negative); IDNOW Serial# 55D5AD1C
--- NOTE | 2022-01-19 15:49 | PC.NURSE ---
teach attempted to ambulate patient to bathroom and notified this nurse that he was very unsteady and unable to ambulate will notify primary nurse and provider
--- NOTE | 2022-01-19 15:57 | PC.NURSE ---
RN has spoken with pt sister Dalila in regards of pt currently experiencing unbalance and not able to ambulate. Sister reported thats new for him, RN reported to Dr. Pineda, and we will continue to monitor. Sister will pick him up when d/c.
[2022-01-19 16:02] VITALS: BP 161/89; PULSE 64; RESP 14; TEMP 37.1; O2SAT 97
[2022-01-19 16:03] LABS: Appearance Urine Clear; Color Urine Yellow; Glucose Urine UA Negative (Negative); Leukocyte Esterase Urine Negative (Negative); Nitrite Urine Negative (Negative); Specific Gravity - Urine 1.015 (1.005-1.025); Urine Blood Negative (Negative); Urine Ketones Negative (Negative); Urine Protein Negative (Neg-Trace)
[2022-01-19 16:15] LABS: Amphetamine Screen Urine Not Detected (Not Detect); Barbiturates, Urine POSITIVE (Not Detect); Benzodiazepines Screen Urine Not Detected (Not Detect); Cannabinoid Screen Urine Not Detected (Not Detect); Cocaine Screen Urine Not Detected (Not Detect); Fentanyl, urine Not Detected (Not Detect); Opiate Screen Urine Not Detected (Not Detect); Phencyclidine Screen Urine Not Detected (Not Detect)
== END 2022-01-19 18:14 | disposition home or self-care (01) ==
PROVIDERS: Emergency Provider Emergency Medicine; PCP Internal Medicine
DX: R56.9 Unspecified convulsions (principal); Z20.822 Contact with and (suspected) exposure to COVID-19; Z79.899 Other long term (current) drug therapy; Z87.891 Personal history of nicotine dependence
CPT/HCPCS: 36415; 80048; 80076; 80185; 80307; 81003; 82077; 83735; 85025; 87635; 93005; 99283; 99285

== ENCOUNTER → 2022-02-20 11:49 | Outpatient (BNVA) | payer OTHER, SELFPAY | PROVIDERS: PCP Internal Medicine; Visit Provider Nurse Practitioner Family | DX: K59.09 Other constipation (principal) | CPT/HCPCS: 99212 ==

== ENCOUNTER 2022-06-21 08:25 | Day surgery (SDC) | payer OTHER, SELFPAY ==
[2022-06-21 09:02] VITALS: BMI 22.9
[2022-06-21 09:11] VITALS: BP 130/100; PULSE 74; RESP 18; TEMP 36.6; O2SAT 99
[2022-06-21 09:12] VITALS: BMI 22.9
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
--- NOTE | 2022-06-21 09:45 | P.OP_ITS ---
Operative Note Operative Note Date of Service: 06/21/22 Narrative: Operative Information Procedure Description: Colonoscopy Indication: screening Anesthesia: MAC COLONOSCOPY Instrument: Olympus variable stiffness ADULT scope 190L Colonoscopy Monitoring: Vital signs and clinical assessment, continuous EKG monitoring, Pulse oximetry, Carbon Dioxide monitoring and blood pressure monitoring were done throughout the procedure. Colon withdrawal time was 16 minutes. Procedure: The patient was placed in the left lateral decubitis position and pre-procedure medications were administered. After a digital rectal examination of the ano-rectum, the video colonoscope was inserted into the rectum and advanced through the colon to the cecum/TI. The colonoscope was slowly withdrawn in a retrograde panoramic fashion and the colon mucosa was carefully examined including a retroflexed view of the rectum. Findings and interventions are described below. Procedure Difficulty: easy Findings: Terminal Ileum-normal Cecum:normal Ascending Colon: 4-6 sessile polyp removed with cold forceps Transverse Colon -normal Descending Colon:normal Sigmoid Colon: normal Rectum: Retroflexion with small internal hemorrhoids, grade I, 12 mm semi pedunculated polyp removed with hot snare and x 1 clip applied for hemostasis Anorectum - normal Colon preparation: [place] Bowel Preparation Scale Right colon; 1-2 Transverse colon: 2 Left colon; 1-2 (0 = Unprepared colon segment with mucosa not seen due to solid stool that cannot be cleared. 1 = Portion of mucosa of the colon segment seen, but other areas of the colon segment not well seen due to staining, residual stool and/or opaque liquid. 2 = Minor amount of residual staining, small fragments of stool and/or opaque liquid, but mucosa of colon segment seen well. 3 = Entire mucosa of colon segment seen well with no residual staining, small fragments of stool or opaque liquid) Impression and Post Procedure Diagnosis: polyps internal hemorrhoids Plan: High fiber diet leaflet Avoid straining at stool, epsom salts and sitz bath, anusol supps or cream Repeat Colonoscopy in 1 year due to prep or earlier if clinically indicated Above findings were reviewed with the patient and relevant handouts were provided if indicated.
[2022-06-21 10:32] VITALS: BP 131/60; PULSE 63; RESP 18; TEMP 36.3; O2SAT 96
[2022-06-21 10:47] VITALS: BP 153/82; PULSE 59; RESP 18; TEMP 36.1; O2SAT 99
[2022-06-21 11:02] VITALS: BP 162/101; PULSE 63; RESP 18; TEMP 36.3; O2SAT 99
[2022-06-21 11:17] VITALS: BP 159/94; PULSE 65; RESP 16; TEMP 36.3; O2SAT 99
== END 2022-06-21 11:55 | disposition home or self-care (01) ==
PROVIDERS: PCP Internal Medicine; Visit Provider Internal Medicine Gastroenterology
PROC: 0DJD8ZZ Inspection of Lower Intestinal Tract, Via Natural or Artificial Opening Endoscopic (ICD-10-PCS; CPT 45378; principal; 2022-06-21 09:40)
DX: Z12.11 Encounter for screening for malignant neoplasm of colon (principal); D12.2 Benign neoplasm of ascending colon; D12.8 Benign neoplasm of rectum; K63.89 Other specified diseases of intestine; K64.0 First degree hemorrhoids; K59.09 Other constipation; G40.909 Epilepsy, unspecified, not intractable, without status epilepticus; Z87.820 Personal history of traumatic brain injury; E78.5 Hyperlipidemia, unspecified; G81.94 Hemiplegia, unspecified affecting left nondominant side; G81.14 Spastic hemiplegia affecting left nondominant side; H54.40 Blindness, one eye, unspecified eye; L98.8 Other specified disorders of the skin and subcutaneous tissue; E55.9 Vitamin D deficiency, unspecified; Z79.899 Other long term (current) drug therapy; F17.210 Nicotine dependence, cigarettes, uncomplicated; Z98.890 Other specified postprocedural states
CPT/HCPCS: 45385; 45380; 88305

== ENCOUNTER → 2022-07-20 11:49 | Outpatient (BNVA) | payer OTHER, SELFPAY | PROVIDERS: PCP Internal Medicine; Visit Provider Nurse Practitioner Family | DX: K59.09 Other constipation (principal); D36.9 Benign neoplasm, unspecified site; Z98.890 Other specified postprocedural states | CPT/HCPCS: 99212 ==

== ENCOUNTER 2022-09-26 11:36 | Emergency (ER) | payer OTHER, SELFPAY ==
--- NOTE | ~2022-09-26 | CT_ITS ---
CT head/brain wo IV con CLINICAL INFORMATION: Fall COMPARISON: Multiple prior CTs most recent 07/05/2021 TECHNIQUE: Department standard protocol. This CT examination was performed using dose optimization techniques as appropriate, variously including the following: *Automated exposure control *Adjustment of mA and/or kV according to patient size (this includes techniques or standardized protocols for targeted exams where dose is matched to indication/reason for exam; i.e. extremities or head) *Use of iterative reconstruction technique DLP: 322 mGy-cm FINDINGS: CEREBRAL HEMISPHERES: Redemonstration of large area of encephalomalacia along the right frontal parietal occipital lobe with adjacent dilatation of the right lateral ventricle, this is chronic, sequela of prior craniotomy. Left frontal parieto-occipital lobes remain normal. BRAIN PARENCHYMA: Normal steve-white matter differentiation. SUBDURAL SPACE: No bleed. BASAL GANGLIA AND PINEAL GLAND: Unremarkable VENTRICLES: Dilated right lateral ventricle unchanged chronic. CEREBELLUM AND BRAINSTEM: No space-occupying mass, hemorrhage or acute infarct. CEREBELLOPONTINE ANGLES: No lesion found. ORBITS: No intraorbital mass. VESSELS: Unremarkable SKULL BASE: Unremarkable INCLUDED SINUSES AT SKULL BASE: Clear SKULL AND SKIN: Postcraniotomy changes right parietal lobe, chronic. No acute findings. CT/CT head/brain wo IV con IMPRESSION: * No CT evidence of acute intracranial space-occupying mass, bleed or infarct. * Redemonstration of large area of encephalomalacia along the right frontal parietal occipital lobe with adjacent dilatation of the right lateral ventricle, this is chronic, sequela of prior craniotomy unchanged..
--- NOTE | ~2022-09-26 | CT_ITS ---
EXAMINATION: CT CERVICAL SPINE WITHOUT CONTRAST CLINICAL INFORMATION: Fall. Mental status change. COMPARISON: None available. TECHNIQUE: Axial images through the cervical spine without contrast. Sagittal and coronal reconstructions on the technologist workstation were performed. This CT examination was performed using dose optimization techniques as appropriate, variously including the following: *Automated exposure control *Adjustment of mA and/or kV according to patient size (this includes techniques or standardized protocols for targeted exams where dose is matched to indication/reason for exam; i.e. extremities or head) *Use of iterative reconstruction technique DLP: 679 mGy-cm FINDINGS: Head tilt to the left and curvature of the lower cervical and upper thoracic spine to the left. Bone alignment is otherwise normal. No fracture or dislocation. Multilevel degenerative spondylosis and degenerative disc disease greatest at C3-C4 C4-C5 and C5-C6. Large right paracentral disc osteophyte complexes at C3-C4-C5 and C5-C6. Small bilateral disc osteophyte complexes at C3-C4. Prevertebral soft tissues are normal. There is a stimulator lead seen in the soft tissues of the left neck. Visualized lung apices are clear. CT/CT cervical spine wo IV con IMPRESSION: Degenerative changes. No fracture or dislocation. Fleischner guidelines were followed.
--- NOTE | ~2022-09-26 | XR_ITS ---
EXAMINATION: XR CHEST CLINICAL INFORMATION: Seizures COMPARISON: None available. TECHNIQUE: 2 views of the chest were obtained. FINDINGS: No significant abnormality is noted involving the heart, lungs, mediastinum, bony thorax or soft tissues. There is a neurostimulator battery on the left XR/XR chest 2V IMPRESSION: No active cardiopulmonary disease
--- NOTE | 2022-09-26 11:55 | PC.NURSE ---
[facility] CALLED. PERMISSION FROM PATIENT TO SPEAK TO HER. AWARE THAT PATIENT JUST ARRIVED TO ED AND WILL BE EVALUATED BY PROVIDER SOON. ARI STATES THAT SHE CAN TRANSPORT PATIENT HOME IF HE GETS DISCHARGED. [phone]
[2022-09-26 12:01] VITALS: BP 135/94; BP 150/90; PULSE 73; PULSE 88; RESP 16; TEMP 36.9; O2SAT 97; O2SAT 98; BMI 22.3
--- NOTE | 2022-09-26 12:16 | ECG_ITS ---
Test Reason : FALL Blood Pressure : / mmHG Vent. Rate : 069 BPM Atrial Rate : 069 BPM P-R Int : 170 ms QRS Dur : 096 ms QT Int : 398 ms P-R-T Axes : 065 101 065 degrees QTc Int : 426 ms Normal sinus rhythm Possible Left atrial enlargement Rightward axis Borderline ECG When compared with ECG of 19-JAN-2022 14:01, No significant change was found Referred By: Generic ED Physician Electronically Signed By:Steven Mcmullen
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
[2022-09-26 12:30] LABS: Hematocrit 45.8 % (42.0-52.0); Hemoglobin 15.5 g/dl (14.0-18.0); Mean Corpuscular HGB Conc 33.8 g/dl (31.0-36.0); Mean Corpuscular Hemoglobin 30.8 pg (27.0-33.0); Mean Corpuscular Volume 90.9 fL (80.0-98.0); Mean Platelet Volume 9.8 fL (9.4-12.4); Platelet Count 298 X10*3/uL (160-400); Red Blood Count 5.04 X10*6/uL (4.60-5.80); Red Cell Distribution Width 14.4 % (11.0-16.0); White Blood Count 10.9 X10*3/uL (4.8-10.8)
[2022-09-26 12:43] LABS: Alanine Aminotransferase 24 U/L (0-40); Albumin Level 4.2 g/dL (3.5-5.0); Alkaline Phosphatase 107 U/L (39-117); Anion Gap 11 (12-20); Aspartate Amino Transferase 15 U/L (5-37); Bilirubin Total 0.3 mg/dL (0.0-1.0); Blood Urea Nitrogen 8 mg/dL (9-16); Calcium 9.2 mg/dL (8.4-10.2); Carbon Dioxide 27 mmol/L (22-29); Chloride 103 mmol/L (96-108); Creatinine Clr Calc Pharmacy 105.2; Estimated Glomerular Filt Rate > 60; Glucose Random 95 mg/dL (60-115); Potassium 4.4 mmol/L (3.3-5.1); Sodium 137 mmol/L (135-145)
[2022-09-26 12:50] LABS: Troponin-I High Sensitivity 28.9 ng/L (<3.5-35.0)
[2022-09-26] MEDS: 0.9 % Sodium Chloride 1,000 ML 999 ML IV (12:58)
[2022-09-26 13:04] LABS: Ethanol < 10 mg/dL
[2022-09-26 13:16] LABS: Amphetamine Screen Urine Not Detected (Not Detect); Barbiturates, Urine POSITIVE (Not Detect); Benzodiazepines Screen Urine Not Detected (Not Detect); Cannabinoid Screen Urine Not Detected (Not Detect); Cocaine Screen Urine Not Detected (Not Detect); Fentanyl, urine Not Detected (Not Detect); Opiate Screen Urine Not Detected (Not Detect); Phencyclidine Screen Urine Not Detected (Not Detect)
[2022-09-26 14:00] VITALS: BP 155/95; PULSE 67; RESP 16; TEMP 36.7; O2SAT 96
--- NOTE | 2022-09-26 15:32 | PC.NURSE ---
pt nsr on monitor, no syncope or confusion since arrival to facility. denies dizziness. independent and ambulating steadily to restroom. pt disgruntled with plan for redraw of labwork and further care. instructed on purpose of these. cathy.
[2022-09-26 16:05] LABS: Appearance Urine Clear; Color Urine Yellow; Glucose Urine UA Negative (Negative); Leukocyte Esterase Urine Negative (Negative); Nitrite Urine Negative (Negative); Specific Gravity - Urine 1.015 (1.005-1.025); Urine Blood Negative (Negative); Urine Ketones Negative (Negative); Urine Protein Trace mg/dL (Neg-Trace)
[2022-09-26 16:15] LABS: Troponin-I High Sensitivity 30.9 ng/L (<3.5-35.0)
== END 2022-09-26 17:15 | disposition still patient (30) ==
PROVIDERS: Physician Assistant Medical; Registered Nurse Emergency; Emergency Provider Internal Medicine
DX: R41.82 Altered mental status, unspecified (principal); F17.210 Nicotine dependence, cigarettes, uncomplicated; Z87.820 Personal history of traumatic brain injury; Z79.899 Other long term (current) drug therapy
CPT/HCPCS: 36415; 70450; 71046; 72125; 80053; 80307; 81003; 82550; 83605; 84484; 85027; 93005; 96360; 96361; 99284; 99285

== ENCOUNTER 2022-10-10 12:53 | Outpatient (AMB) | payer OTHER, SELFPAY ==
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
[2022-10-10 13:02] VITALS: BP 128/90; PULSE 84; O2SAT 95; BMI 21.7
== END 2022-10-10 14:03 | disposition home or self-care (01) ==
PROVIDERS: Visit Provider Internal Medicine
DX: G40.909 Epilepsy, unspecified, not intractable, without status epilepticus (principal); S06.9X9S Unspecified intracranial injury with loss of consciousness of unspecified duration, sequela; G81.14 Spastic hemiplegia affecting left nondominant side; K59.09 Other constipation; R46.89 Other symptoms and signs involving appearance and behavior; F17.210 Nicotine dependence, cigarettes, uncomplicated
CPT/HCPCS: 99214

== ENCOUNTER 2022-11-07 10:46 | Emergency (ER) | payer OTHER, SELFPAY ==
[2022-11-07 11:07] VITALS: BP 137/87; BP 137/99; PULSE 80; PULSE 89; RESP 18; TEMP 37.5; O2SAT 93; O2SAT 94; BMI 23.2
--- NOTE | 2022-11-07 11:14 | ECG_ITS ---
Test Reason : cp Blood Pressure : / mmHG Vent. Rate : 069 BPM Atrial Rate : 069 BPM P-R Int : 152 ms QRS Dur : 096 ms QT Int : 390 ms P-R-T Axes : 063 098 072 degrees QTc Int : 417 ms Normal sinus rhythm Rightward axis Borderline ECG When compared with ECG of 26-SEP-2022 13:13, No significant change was found Referred By: Generic ED Physician Electronically Signed By:Steven Mcmullen
--- NOTE | 2022-11-07 11:20 | PC.NURSE ---
Pt to [facility] via EMS from work for witnessed syncopal episode. Pt has known seizure disorder that he takes medication for, states he has been med compliant. Pts boss states he has had similar episodes in the past. Pt lives with sister. Currently A&Ox3; denies pain/n/v/sob/cp. VSS. 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 Plan for labs, ekg. WCTA
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
[2022-11-07 11:41] LABS: MANUAL DIFF FLAG NO
[2022-11-07 11:48] LABS: Basophils Absolute Auto 0.1 X10*3/uL (0.0-0.2); Basophils Percent Auto 0.6 % (0-2); Eosinophils Absolute Auto 0.6 X10*3/uL (0.0-0.4); Eosinophils Percent Auto 6.5 % (0-4); Imm Gran Abs Auto 0.03 X10*3/uL (0.00-0.03); Imm Gran Pct Auto 0.3 % (0.0-0.4); Lymphocytes Absolute Auto 2.9 X10*3/uL (1.2-4.9); Lymphocytes Percent Auto 30.4 % (20-40); Mean Corpuscular HGB Conc 34.1 g/dl (31.0-36.0); Mean Corpuscular Hemoglobin 30.2 pg (27.0-33.0); Mean Corpuscular Volume 88.7 fL (80.0-98.0); Mean Platelet Volume 9.6 fL (9.4-12.4); Monocytes Absolute Auto 0.8 X10*3/uL (0.1-1.2); Monocytes Percent Auto 8.1 % (2-11); Neutrophils Absolute Auto 5.2 x10*3/uL (2.0-8.3); Neutrophils Percent Auto 54.1 % (45-73); Platelet Count 293 X10*3/uL (160-400); Red Blood Count 4.96 X10*6/uL (4.60-5.80); Red Cell Distribution Width 13.9 % (11.0-16.0); White Blood Count 9.7 X10*3/uL (4.8-10.8)
[2022-11-07 12:08] VITALS: BP 133/83; PULSE 67; RESP 19; O2SAT 94
[2022-11-07 12:08] LABS: Alanine Aminotransferase 17 U/L (0-40); Albumin Level 4.1 g/dL (3.5-5.0); Alkaline Phosphatase 88 U/L (39-117); Aspartate Amino Transferase 14 U/L (5-37); Bilirubin Total 0.2 mg/dL (0.0-1.0); Blood Urea Nitrogen 9 mg/dL (9-16); Creatinine Clr Calc Pharmacy 117.1; Estimated Glomerular Filt Rate > 60; Glucose Random 101 mg/dL (60-115); Total Protein 6.9 g/dL (6.5-8.0)
[2022-11-07 12:18] LABS: Phenytoin Dilantin 8.7 ug/mL (10.0-20.0)
[2022-11-07] MEDS: PHENobarbitaL 30 MG TABLET 120 MG PO (12:31)
--- NOTE | 2022-11-07 12:39 | PC.NURSE ---
Antonia (Sister) contacted regarding Phenytoin/Phenobarb levels. Per pt sister manages medication. Per the sister, the patient has been med complaints. Was hospitalized x2 weeks ago for a similar event and was found to have subtherapeutic levels then. Sister states that Neurologist wants to have the patient admitted for dose changes but that will not occur for another two weeks, inquiring if something can be done in the meantime. AIDAN
--- NOTE | 2022-11-07 13:50 | PC.NURSE ---
Pharmacy contacted for IV Dilantin; Pt educated on need for IV replacement; Sister (primary caregiver) contacted regarding plan of care and asked to come in. Pt continues to deny pain; Comfort/needs addressed.
[2022-11-07 15:14] VITALS: BP 146/98; PULSE 60; RESP 14; TEMP 36.7; O2SAT 97
[2022-11-07 15:45] LABS: Chloride 103 mmol/L (96-108); Potassium 4.1 mmol/L (3.3-5.1); Sodium 135 mmol/L (135-145)
--- NOTE | 2022-11-07 16:21 | PC.NURSE ---
IV removed in preparation for discharge; Ambu trial attempted, pt unstable with ambulation. Family member states that this occurs when the patient has to much Dilantin. Provider notified. Plan for pt to remain for observation, will reattempt ambulation trial in 60 minutes. Call light within reach, bed locked in lowest position. VSS. WCTA
[2022-11-07 16:23] VITALS: PULSE 78; RESP 18; O2SAT 97
--- NOTE | 2022-11-07 17:46 | PC.NURSE ---
Pt successfully completed ambulation trial; unsteady gait at baseline due to physical deformity. Pt states he feels as though he has returned to his baseline. Notifying provider; plan for DC.
[2022-11-07 19:24] LABS: Carbon Dioxide 22 mmol/L (22-29)
== END 2022-11-07 18:53 | disposition home or self-care (01) ==
PROVIDERS: Emergency Provider Emergency Medicine
DX: G40.909 Epilepsy, unspecified, not intractable, without status epilepticus (principal); E78.5 Hyperlipidemia, unspecified; F17.210 Nicotine dependence, cigarettes, uncomplicated; Z87.820 Personal history of traumatic brain injury
CPT/HCPCS: 36415; 80053; 80184; 80185; 85025; 93005; 96365; 99284

== ENCOUNTER → 2022-11-07 11:14 | Outpatient (BNV) | payer OTHER, SELFPAY | PROVIDERS: Emergency Provider Emergency Medicine; Visit Provider Internal Medicine Cardiovascular Disease | DX: R07.9 Chest pain, unspecified (principal) | CPT/HCPCS: 93010 ==

== ENCOUNTER 2023-01-10 12:36 | Emergency (ER) | payer OTHER, SELFPAY ==
--- NOTE | ~2023-01-10 | CT_ITS ---
EXAMINATION: CT HEAD WITHOUT CONTRAST CLINICAL INFORMATION: Seizure with head injury COMPARISON: 09/26/2022 TECHNIQUE: Contiguous axial imaging was performed from the skull base to vertex without intravenous administration of contrast. This CT examination was performed using dose optimization techniques as appropriate, variously including the following: *Automated exposure control *Adjustment of mA and/or kV according to patient size (this includes techniques or standardized protocols for targeted exams where dose is matched to indication/reason for exam; i.e. extremities or head) *Use of iterative reconstruction technique DLP: 650 mGy-cm FINDINGS: There is no midline shift. There is no mass effect. There is no hemorrhage. The basal cisterns are unchanged. The posterior fossa appears unchanged. Calcifications are noted. Once again noted of asymmetrical ventriculomegaly with volume loss on the right. Appearance of the steve-white matter is unchanged. Review of the bone windows demonstrates mild sinus disease. CT/CT head/brain wo IV con IMPRESSION: No acute finding. Chronic changes are noted.
[2023-01-10 12:53] VITALS: BP 133/93; BP 144/93; PULSE 75; PULSE 80; RESP 16; TEMP 36.8; O2SAT 95; O2SAT 97; BMI 23.2
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
[2023-01-10] MEDS: Acetaminophen 325 MG TABLET 650 MG PO (13:33)
[2023-01-10 13:45] LABS: Basophils Absolute Auto 0.1 X10*3/uL (0.0-0.2); Basophils Percent Auto 0.7 % (0-2); Eosinophils Absolute Auto 0.5 X10*3/uL (0.0-0.4); Eosinophils Percent Auto 4.5 % (0-4); Hematocrit 46.3 % (42.0-52.0); Hemoglobin 16.1 g/dl (14.0-18.0); Imm Gran Abs Auto 0.08 X10*3/uL (0.00-0.03); Imm Gran Pct Auto 0.7 % (0.0-0.4); Lymphocytes Percent Auto 25.4 % (20-40); MANUAL DIFF FLAG SCAN; Mean Corpuscular HGB Conc 34.8 g/dl (31.0-36.0); Monocytes Absolute Auto 0.8 X10*3/uL (0.1-1.2); Monocytes Percent Auto 6.9 % (2-11); Neutrophils Absolute Auto 7.4 x10*3/uL (2.0-8.3); Neutrophils Percent Auto 61.8 % (45-73); PLT CLUMP 1; SCAN SMEAR FLAG 1
[2023-01-10 13:48] LABS: Red Cell Distribution Width 14.2 % (11.0-16.0)
[2023-01-10 14:06] LABS: Anion Gap 12 (12-20); Blood Urea Nitrogen 6 mg/dL (9-16); Calcium 9.3 mg/dL (8.4-10.2); Carbon Dioxide 27 mmol/L (22-29); Chloride 103 mmol/L (96-108); Creatinine Clr Calc Pharmacy 121.5; Estimated Glomerular Filt Rate > 60; Glucose Random 94 mg/dL (60-115); Platelet Count 223 X10*3/uL (160-400); Potassium 4.2 mmol/L (3.3-5.1); SLIDE REVIEW VERIFIED; Sodium 138 mmol/L (135-145)
== END 2023-01-10 15:17 | disposition home or self-care (01) ==
PROVIDERS: Emergency Provider Emergency Medicine; PCP Internal Medicine
DX: R56.9 Unspecified convulsions (principal); E78.5 Hyperlipidemia, unspecified; Z87.820 Personal history of traumatic brain injury; F17.210 Nicotine dependence, cigarettes, uncomplicated; Z79.899 Other long term (current) drug therapy
CPT/HCPCS: 36415; 70450; 80048; 85025; 99283; 99284

== ENCOUNTER 2023-01-21 17:19 | Outpatient (AMB) | payer OTHER, SELFPAY ==
[2023-01-21 17:23] VITALS: BP 144/82; PULSE 71; O2SAT 98; BMI 21.8
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
== END 2023-01-21 17:48 | disposition home or self-care (01) ==
LOC: HO.HMGH 17:19
PROVIDERS: PCP Internal Medicine; Visit Provider Internal Medicine
DX: G40.909 Epilepsy, unspecified, not intractable, without status epilepticus (principal); S06.9X9S Unspecified intracranial injury with loss of consciousness of unspecified duration, sequela; G81.14 Spastic hemiplegia affecting left nondominant side; K59.09 Other constipation; R46.89 Other symptoms and signs involving appearance and behavior; F17.210 Nicotine dependence, cigarettes, uncomplicated
CPT/HCPCS: 99214

== ENCOUNTER 2023-02-19 13:16 | Outpatient (AMB) | payer OTHER, SELFPAY ==
[2023-02-19 13:19] VITALS: BP 140/98; PULSE 74; O2SAT 98; BMI 22.2
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
== END 2023-02-19 14:00 | disposition home or self-care (01) ==
PROVIDERS: Visit Provider Internal Medicine
DX: G40.909 Epilepsy, unspecified, not intractable, without status epilepticus (principal); S06.9X9S Unspecified intracranial injury with loss of consciousness of unspecified duration, sequela; G81.14 Spastic hemiplegia affecting left nondominant side; K59.09 Other constipation; R46.89 Other symptoms and signs involving appearance and behavior; F17.210 Nicotine dependence, cigarettes, uncomplicated
CPT/HCPCS: 99213

== ENCOUNTER 2023-03-18 15:53 | Outpatient (AMB) | payer OTHER, SELFPAY ==
[2023-03-18 16:02] VITALS: BP 157/101; PULSE 85; BMI 21.8
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
== END 2023-03-18 16:23 | disposition home or self-care (01) ==
PROVIDERS: Visit Provider Nurse Practitioner Family
DX: K59.04 Chronic idiopathic constipation (principal)
CPT/HCPCS: 99213

== ENCOUNTER → 2023-03-18 15:53 | Outpatient (BNVA) | payer OTHER, SELFPAY | PROVIDERS: Visit Provider Nurse Practitioner Family | DX: K59.04 Chronic idiopathic constipation (principal) | CPT/HCPCS: 99212 ==

== ENCOUNTER 2023-03-20 13:24 | Emergency (ER) | payer OTHER, SELFPAY ==
--- NOTE | ~2023-03-20 | CT_ITS ---
EXAMINATION: CT HEAD WITHOUT CONTRAST CLINICAL INFORMATION: Headache and dizziness. COMPARISON: 01/10/2023 TECHNIQUE: Contiguous axial imaging was performed from the skull base to vertex without intravenous administration of contrast. Sagittal and coronal reformatted images also obtained. This CT examination was performed using dose optimization techniques as appropriate, variously including the following: *Automated exposure control *Adjustment of mA and/or kV according to patient size (this includes techniques or standardized protocols for targeted exams where dose is matched to indication/reason for exam; i.e. extremities or head) *Use of iterative reconstruction technique DLP: 657 mGy-cm FINDINGS: There is again seen right frontoparietal encephalomalacia with significant ex vacuo dilatation of the right lateral ventricle similar to previous. There is mild generalized cerebral volume loss with prominence of the left lateral and third ventricles. The cortical sulci are widened appropriately. The fourth ventricle and basal cisterns are normally outlined. There is no acute territorial defect, hemorrhage or midline shift. The extra-axial spaces are unremarkable. Calvarium: Intact. Maxillofacial sinuses and mastoids: There is ethmoid and left maxillary sinus mucosal thickening. The remaining visualized maxillofacial sinuses and mastoids are clear. CT/CT head/brain wo IV con IMPRESSION: No acute intracranial abnormality. No significant change.
[2023-03-20 14:16] VITALS: BP 128/86; BP 142/92; PULSE 64; PULSE 79; RESP 17; TEMP 36.9; O2SAT 97; O2SAT 98; BMI 20.6
[2023-03-20 14:25] VITALS: BP 142/92; PULSE 76; RESP 18; TEMP 36.9; O2SAT 98
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
--- NOTE | 2023-03-20 15:00 | ECG_ITS ---
Test Reason : DIZZINESS Blood Pressure : / mmHG Vent. Rate : 064 BPM Atrial Rate : 064 BPM P-R Int : 158 ms QRS Dur : 106 ms QT Int : 428 ms P-R-T Axes : 074 097 074 degrees QTc Int : 441 ms Sinus rhythm Rightward axis Intra-ventricular conduction delay Nonspecific ST abnormality Abnormal ECG When compared with ECG of 07-NOV-2022 11:38, T wave amplitude has decreased in Anterior leads Referred By: Ny Beckford Electronically Signed By:MANASA ALONSO MD
[2023-03-20] MEDS: Meclizine HCl 25 MG TABLET PO (15:38)
[2023-03-20] MEDS: 0.9 % Sodium Chloride 1,000 ML 999 ML IV (15:38)
[2023-03-20] MEDS: ondansetron HCL 4 MG/2 ML VIAL IVPUSH (15:38)
[2023-03-20 16:11] LABS: IDNOW Serial# BCCEAD1C
[2023-03-20 16:12] LABS: COVID-19 Test Negative (Negative)
[2023-03-20 17:32] LABS: Alanine Aminotransferase 14 U/L (0-40); Albumin Level 4.1 g/dL (3.5-5.0); Alkaline Phosphatase 111 U/L (39-117); Anion Gap 13 (12-20); Aspartate Amino Transferase 15 U/L (5-37); Bilirubin Direct 0.1 mg/dL (0.0-0.5); Bilirubin Total 0.3 mg/dL (0.0-1.0); Blood Urea Nitrogen 5 mg/dL (9-16); Calcium 9.2 mg/dL (8.4-10.2); Carbon Dioxide 26 mmol/L (22-29); Chloride 104 mmol/L (96-108); Creatinine Clr Calc Pharmacy 116.4; Estimated Glomerular Filt Rate > 60; Glucose Random 111 mg/dL (60-115); Magnesium 2.1 mg/dL (1.6-2.6); Potassium 3.7 mmol/L (3.3-5.1); Sodium 139 mmol/L (135-145); Total Protein 7.2 g/dL (6.5-8.0)
[2023-03-20 17:39] LABS: Troponin-I High Sensitivity 2.8 ng/L (<3.5-35.0)
--- NOTE | 2023-03-20 17:46 | PC.NURSE ---
Spoke with family member regarding concerns about the patient. Family member is worried that the patient might have doubled his morning medications this morning. Provider made aware of this and which medications would be doubled.
[2023-03-20 18:52] LABS: Basophils Absolute Auto 0.1 X10*3/uL (0.0-0.2); Basophils Percent Auto 0.8 % (0-2); Eosinophils Absolute Auto 0.7 X10*3/uL (0.0-0.4); Eosinophils Percent Auto 7.3 % (0-4); Hematocrit 43.6 % (42.0-52.0); Hemoglobin 15.5 g/dl (14.0-18.0); Imm Gran Abs Auto 0.08 X10*3/uL (0.00-0.03); Imm Gran Pct Auto 0.8 % (0.0-0.4); Lymphocytes Absolute Auto 3.4 X10*3/uL (1.2-4.9); Lymphocytes Percent Auto 33.5 % (20-40); Mean Corpuscular HGB Conc 35.6 g/dl (31.0-36.0); Mean Corpuscular Hemoglobin 32.2 pg (27.0-33.0); Mean Corpuscular Volume 90.5 fL (80.0-98.0); Mean Platelet Volume 10.4 fL (9.4-12.4); Monocytes Percent Auto 10.1 % (2-11); Neutrophils Absolute Auto 4.9 x10*3/uL (2.0-8.3); Neutrophils Percent Auto 47.5 % (45-73); Platelet Count 289 X10*3/uL (160-400); Red Blood Count 4.82 X10*6/uL (4.60-5.80); Red Cell Distribution Width 13.8 % (11.0-16.0); White Blood Count 10.2 X10*3/uL (4.8-10.8)
[2023-03-20 19:23] VITALS: BP 150/90; PULSE 69; RESP 20; TEMP 36.2; O2SAT 96
== END 2023-03-20 19:33 | disposition home or self-care (01) ==
PROVIDERS: Emergency Provider Emergency Medicine; PCP Internal Medicine
DX: R42 Dizziness and giddiness (principal); R51.9 Headache, unspecified; R11.2 Nausea with vomiting, unspecified; R94.31 Abnormal electrocardiogram [ECG] [EKG]; F17.210 Nicotine dependence, cigarettes, uncomplicated; Z11.52 Encounter for screening for COVID-19; Z20.822 Contact with and (suspected) exposure to COVID-19; Z71.6 Tobacco abuse counseling; Z79.899 Other long term (current) drug therapy
CPT/HCPCS: 36415; 70450; 80048; 80076; 83735; 84484; 85025; 87635; 93005; 96361; 96374; 99284; J2405

== ENCOUNTER 2023-04-30 16:09 | Emergency (ER) | payer OTHER, SELFPAY ==
--- NOTE | ~2023-04-30 | CT_ITS ---
EXAMINATION: CT ABDOMEN AND PELVIS WITHOUT CONTRAST CLINICAL INFORMATION: Left lower quadrant pain. Unable to obtain IV access. COMPARISON: 12/29/2020 TECHNIQUE: Multidetector volumetric imaging was performed from the superior aspect of the liver through the pubic symphysis. Sagittal and coronal reformatted images were obtained on the technologist's workstation. This CT examination was performed using dose optimization techniques as appropriate, variously including the following: *Automated exposure control *Adjustment of mA and/or kV according to patient size (this includes techniques or standardized protocols for targeted exams where dose is matched to indication/reason for exam; i.e. extremities or head) *Use of iterative reconstruction technique DLP: 301 mGy-cm FINDINGS: LUNG BASES: The visualized lung bases are unremarkable. LIVER, GALLBLADDER, AND BILIARY TREE: The liver is normal in size, shape, and attenuation. No focal hepatic lesion or biliary ductal dilatation is present. Gallbladder is surgically absent. PANCREAS: Unremarkable. SPLEEN: Unremarkable. ADRENAL GLANDS: Unremarkable. KIDNEYS AND URETERS: The kidneys are normal in size, shape, and attenuation. No hydronephrosis, hydroureter, or calculi seen. No perinephric stranding. BLADDER: Full. No wall thickening or surrounding fat stranding. GASTROINTESTINAL TRACT: Stomach, small bowel, and colon are normal in caliber. No bowel wall thickening or surrounding inflammatory changes. Appendix is normal. No intraperitoneal free fluid or free air. ABDOMINAL WALL: Small fat-containing right inguinal hernia. No bowel involvement. LYMPH NODES: Numerous subcentimeter mesenteric and retroperitoneal lymph nodes. No pathologic adenopathy. VASCULAR: Unremarkable. PELVIC VISCERA: The prostate and seminal vesicles are unremarkable. OSSEOUS STRUCTURES: Mild facet arthropathy in the lower lumbar spine. No fracture or malalignment. Mild degenerative arthritis in the SI joints. CT/CT abdomen pelvis wo IV con IMPRESSION: 1. No acute intra-abdominal or intrapelvic abnormalities. 2. Small fat-containing right inguinal hernia. No bowel involvement. Fleischner guidelines were followed.
--- NOTE | ~2023-04-30 | CT_ITS ---
EXAMINATION: CT HEAD WITHOUT CONTRAST CLINICAL INFORMATION: Headache and dizziness COMPARISON: 03/20/2023 TECHNIQUE: Contiguous axial imaging was performed from the skull base to vertex without intravenous administration of contrast. This CT examination was performed using dose optimization techniques as appropriate, variously including the following: *Automated exposure control *Adjustment of mA and/or kV according to patient size (this includes techniques or standardized protocols for targeted exams where dose is matched to indication/reason for exam; i.e. extremities or head) *Use of iterative reconstruction technique DLP: 684 mGy-cm FINDINGS: CT examination of the brain again demonstrates marked ex vacuo dilatation of the right lateral ventricle with considerable right frontoparietal encephalomalacia. Generalized cerebral volume loss, prominence of the remainder of the ventricular system and sulcal widening are again evident. No acute hemorrhage, mass effect or shift is evident. In the posterior fossa, the brainstem and cerebellum are unremarkable. No acute hemorrhage, mass effect or shift is evident. In the posterior fossa, the brainstem, cerebellum and fourth ventricle are unremarkable. The orbits and bony calvarium are intact. The paranasal sinuses and mastoid air cells are well pneumatized and clear. CT/CT head/brain wo IV con IMPRESSION: 1. No acute intracranial pathology or significant change since 03/20/2023. 2. Stable marked ex vacuo dilatation of the right lateral ventricle with associated encephalomalacia.
--- NOTE | ~2023-04-30 | XR_ITS ---
EXAMINATION: XR ABDOMEN KUB CLINICAL INDICATION: Constipation COMPARISON: CT abdomen and pelvis 12/29/2020 TECHNIQUE: AP view of the abdomen. FINDINGS: Nonobstructive bowel gas pattern. Moderate stool throughout the colon. Surgical clips in the right upper quadrant. Degenerative changes in the spine. XR/XR KUB IMPRESSION: Moderate stool burden.
[2023-04-30 16:24] VITALS: BP 172/97; PULSE 92; RESP 18; TEMP 37; O2SAT 100; BMI 21.4
--- NOTE | 2023-04-30 16:31 | ECG_ITS ---
Test Reason : DIZZINESS Blood Pressure : / mmHG Vent. Rate : 082 BPM Atrial Rate : 082 BPM P-R Int : 144 ms QRS Dur : 100 ms QT Int : 374 ms P-R-T Axes : 083 179 076 degrees QTc Int : 436 ms Normal sinus rhythm Possible Left atrial enlargement Right axis deviation Pulmonary disease pattern Abnormal ECG When compared with ECG of 20-MAR-2023 15:35, QRS axis Shifted right Referred By: Angel Torres Electronically Signed By:ARIEL WHARTON MD
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
[2023-04-30 17:03] LABS: MANUAL DIFF FLAG NO
[2023-04-30 17:12] LABS: Basophils Absolute Auto 0.1 X10*3/uL (0.0-0.2); Basophils Percent Auto 0.6 % (0-2); Eosinophils Absolute Auto 0.9 X10*3/uL (0.0-0.4); Eosinophils Percent Auto 7.6 % (0-4); Hematocrit 47.9 % (42.0-52.0); Hemoglobin 16.3 g/dl (14.0-18.0); Imm Gran Abs Auto 0.03 X10*3/uL (0.00-0.03); Imm Gran Pct Auto 0.3 % (0.0-0.4); Lymphocytes Absolute Auto 3.9 X10*3/uL (1.2-4.9); Lymphocytes Percent Auto 34.9 % (20-40); Mean Corpuscular Hemoglobin 31.2 pg (27.0-33.0); Mean Corpuscular Volume 91.8 fL (80.0-98.0); Mean Platelet Volume 10.2 fL (9.4-12.4); Monocytes Absolute Auto 0.7 X10*3/uL (0.1-1.2); Monocytes Percent Auto 6.2 % (2-11); Neutrophils Absolute Auto 5.6 x10*3/uL (2.0-8.3); Neutrophils Percent Auto 50.4 % (45-73); Platelet Count 342 X10*3/uL (160-400); Red Blood Count 5.22 X10*6/uL (4.60-5.80); Red Cell Distribution Width 14.5 % (11.0-16.0); White Blood Count 11.2 X10*3/uL (4.8-10.8)
[2023-04-30 17:16] LABS: INTERNATIONAL NORM RATIO 0.8 (0.9-1.1); Prothrombin Time 9.9 SEC (11.1-13.3)
[2023-04-30 17:18] LABS: Partial Thromboplastin Time 29.7 SEC (26.0-36.4)
[2023-04-30 17:20] LABS: Alanine Aminotransferase 15 U/L (0-40); Albumin Level 4.3 g/dL (3.5-5.0); Alkaline Phosphatase 107 U/L (39-117); Anion Gap 14 (12-20); Aspartate Amino Transferase 13 U/L (5-37); Bilirubin Total 0.1 mg/dL (0.0-1.0); Blood Urea Nitrogen 6 mg/dL (9-16); Calcium 9.3 mg/dL (8.4-10.2); Carbon Dioxide 26 mmol/L (22-29); Chloride 106 mmol/L (96-108); Creatinine Clr Calc Pharmacy 108.8; Estimated Glomerular Filt Rate > 60; Glucose Random 102 mg/dL (60-115); Potassium 4.1 mmol/L (3.3-5.1); Sodium 142 mmol/L (135-145); Total Protein 7.3 g/dL (6.5-8.0)
[2023-04-30 17:37] LABS: Troponin-I High Sensitivity < 2.7 ng/L (<3.5-35.0)
[2023-04-30 22:22] VITALS: BP 154/90; PULSE 73; RESP 16; TEMP 36.7; O2SAT 97
[2023-05-01 00:03] VITALS: BP 137/86; PULSE 68
[2023-05-01 00:04] VITALS: BP 143/93; BP 156/97; PULSE 72; PULSE 84
[2023-05-01 02:23] VITALS: BP 140/83; PULSE 66; RESP 17; TEMP 36.9; O2SAT 95
== END 2023-05-01 05:36 | disposition home or self-care (01) ==
PROVIDERS: Physician Assistant; Emergency Provider Internal Medicine; PCP Internal Medicine
DX: K40.90 Unilateral inguinal hernia, without obstruction or gangrene, not specified as recurrent (principal); R10.30 Lower abdominal pain, unspecified; K59.00 Constipation, unspecified; R94.31 Abnormal electrocardiogram [ECG] [EKG]; Z79.899 Other long term (current) drug therapy
CPT/HCPCS: 36415; 70450; 74018; 74176; 80053; 84484; 85025; 85610; 85730; 93005; 99284

== ENCOUNTER → 2023-04-30 16:31 | Outpatient (BNV) | payer OTHER, SELFPAY | PROVIDERS: Emergency Provider Internal Medicine; PCP Internal Medicine; Visit Provider Internal Medicine Cardiovascular Disease | DX: R94.31 Abnormal electrocardiogram [ECG] [EKG] (principal) | CPT/HCPCS: 93010 ==

== ENCOUNTER 2023-05-22 12:36 | Outpatient (AMB) | payer OTHER, SELFPAY ==
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
[2023-05-22 12:49] VITALS: BP 146/88; PULSE 77; O2SAT 97; BMI 21.2
[2023-05-22 13:26] VITALS: BP 128/86
== END 2023-05-22 13:30 | disposition home or self-care (01) ==
PROVIDERS: PCP Internal Medicine; Visit Provider Internal Medicine
DX: G40.909 Epilepsy, unspecified, not intractable, without status epilepticus (principal); S06.9X9S Unspecified intracranial injury with loss of consciousness of unspecified duration, sequela; G81.14 Spastic hemiplegia affecting left nondominant side; K59.09 Other constipation; E78.5 Hyperlipidemia, unspecified; R46.89 Other symptoms and signs involving appearance and behavior; F17.200 Nicotine dependence, unspecified, uncomplicated
CPT/HCPCS: 99499

== ENCOUNTER 2023-06-11 15:42 | Outpatient (AMB) | payer OTHER, SELFPAY ==
[2023-06-11 15:44] VITALS: BP 137/90; PULSE 84; BMI 20.8
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
== END 2023-06-11 16:10 | disposition home or self-care (01) ==
PROVIDERS: PCP Internal Medicine; Visit Provider Nurse Practitioner Family
DX: D36.9 Benign neoplasm, unspecified site (principal); Z12.11 Encounter for screening for malignant neoplasm of colon; K59.09 Other constipation
CPT/HCPCS: 99213

== ENCOUNTER → 2023-06-11 15:42 | Outpatient (BNVA) | payer OTHER, SELFPAY | PROVIDERS: PCP Internal Medicine; Visit Provider Nurse Practitioner Family | DX: Z12.11 Encounter for screening for malignant neoplasm of colon (principal); D36.9 Benign neoplasm, unspecified site; K59.09 Other constipation | CPT/HCPCS: 99212 ==

== ENCOUNTER 2023-07-05 09:25 | Outpatient (REF) | payer OTHER, SELFPAY ==
[2023-07-05 10:51] LABS: Alanine Aminotransferase 21 U/L (0-40); Albumin Level 4.7 g/dL (3.5-5.0); Alkaline Phosphatase 109 U/L (39-117); Aspartate Amino Transferase 16 U/L (5-37); Bilirubin Direct < 0.2 mg/dL (0.0-0.5); Bilirubin Total 0.2 mg/dL (0.0-1.0)
== END 2023-07-05 09:26 | disposition home or self-care (01) ==
LOC: HO.LAB 09:25
PROVIDERS: PCP Internal Medicine; Visit Provider Podiatrist
DX: B35.1 Tinea unguium (principal)
CPT/HCPCS: 36415; 80076

== ENCOUNTER 2023-09-19 12:50 | Outpatient (AMB) | payer OTHER, SELFPAY ==
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
[2023-09-19 13:00] VITALS: BP 146/94; PULSE 72; O2SAT 98; BMI 20.8
== END 2023-09-19 13:29 | disposition home or self-care (01) ==
LOC: HO.HMGH 12:50
PROVIDERS: PCP Internal Medicine; Visit Provider Internal Medicine
DX: G40.909 Epilepsy, unspecified, not intractable, without status epilepticus (principal); S06.9X9S Unspecified intracranial injury with loss of consciousness of unspecified duration, sequela; G81.14 Spastic hemiplegia affecting left nondominant side; E78.5 Hyperlipidemia, unspecified; K59.09 Other constipation; R46.89 Other symptoms and signs involving appearance and behavior; F17.200 Nicotine dependence, unspecified, uncomplicated
CPT/HCPCS: 99499

== ENCOUNTER 2023-09-19 15:15 | Outpatient (REF) | payer OTHER, SELFPAY ==
[2023-09-19 15:49] LABS: MANUAL DIFF FLAG NO
[2023-09-19 16:16] LABS: Basophils Absolute Auto 0.1 X10*3/uL (0.0-0.2); Basophils Percent Auto 0.7 % (0-2); Eosinophils Absolute Auto 0.7 X10*3/uL (0.0-0.4); Eosinophils Percent Auto 5.9 % (0-4); Hematocrit 44.9 % (42.0-52.0); Hemoglobin 15.8 g/dl (14.0-18.0); Imm Gran Abs Auto 0.03 X10*3/uL (0.00-0.03); Imm Gran Pct Auto 0.3 % (0.0-0.4); Lymphocytes Percent Auto 34.5 % (20-40); Mean Corpuscular HGB Conc 35.2 g/dl (31.0-36.0); Mean Corpuscular Hemoglobin 31.4 pg (27.0-33.0); Mean Corpuscular Volume 89.3 fL (80.0-98.0); Mean Platelet Volume 10.3 fL (9.4-12.4); Monocytes Absolute Auto 0.8 X10*3/uL (0.1-1.2); Monocytes Percent Auto 7.1 % (2-11); Neutrophils Percent Auto 51.5 % (45-73); Platelet Count 297 X10*3/uL (160-400); Red Blood Count 5.03 X10*6/uL (4.60-5.80); Red Cell Distribution Width 13.6 % (11.0-16.0); White Blood Count 11.6 X10*3/uL (4.8-10.8)
[2023-09-19 16:43] LABS: Alanine Aminotransferase 18 U/L (0-40); Albumin Level 4.4 g/dL (3.5-5.0); Alkaline Phosphatase 97 U/L (39-117); Anion Gap 12 (12-20); Aspartate Amino Transferase 14 U/L (5-37); Bilirubin Total 0.2 mg/dL (0.0-1.0); Blood Urea Nitrogen 8 mg/dL (9-16); Calcium 9.5 mg/dL (8.4-10.2); Carbon Dioxide 27 mmol/L (22-29); Chloride 104 mmol/L (96-108); Cholesterol 167 mg/dL (<200); Estimated Glomerular Filt Rate > 60; Glucose Fasting 93 mg/dL (60-99); HDL Cholesterol 57 mg/dL (>40); LDL Cholesterol Calculated 97 mg/dL (<100); Potassium 3.8 mmol/L (3.3-5.1); Sodium 139 mmol/L (135-145); Total Protein 7.4 g/dL (6.5-8.0); Triglycerides 68 mg/dL (<150)
== END 2023-09-19 15:16 | disposition home or self-care (01) ==
LOC: HO.LAB 15:15
PROVIDERS: PCP Internal Medicine; Visit Provider Internal Medicine
DX: E78.00 Pure hypercholesterolemia, unspecified (principal); D64.9 Anemia, unspecified
CPT/HCPCS: 36415; 80053; 80061; 85025

== ENCOUNTER 2024-01-23 11:52 | Outpatient (AMB) | payer OTHER, SELFPAY ==
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
[2024-01-23 12:03] VITALS: BP 120/86
== END 2024-01-23 12:25 | disposition home or self-care (01) ==
PROVIDERS: PCP Internal Medicine; Visit Provider Internal Medicine
DX: G40.909 Epilepsy, unspecified, not intractable, without status epilepticus (principal); S06.9X9S Unspecified intracranial injury with loss of consciousness of unspecified duration, sequela; F33.1 Major depressive disorder, recurrent, moderate; G81.14 Spastic hemiplegia affecting left nondominant side; E78.5 Hyperlipidemia, unspecified; K59.09 Other constipation; F17.200 Nicotine dependence, unspecified, uncomplicated

== ENCOUNTER → 2024-01-23 11:52 | Outpatient (BNVA) | payer OTHER, SELFPAY | PROVIDERS: PCP Internal Medicine; Visit Provider Internal Medicine | DX: Z23 Encounter for immunization (principal); G40.909 Epilepsy, unspecified, not intractable, without status epilepticus; S06.9X9S Unspecified intracranial injury with loss of consciousness of unspecified duration, sequela; G81.14 Spastic hemiplegia affecting left nondominant side; K59.09 Other constipation; E78.5 Hyperlipidemia, unspecified; F33.1 Major depressive disorder, recurrent, moderate; F17.200 Nicotine dependence, unspecified, uncomplicated; Z71.6 Tobacco abuse counseling | CPT/HCPCS: 90471; 90656; 99212 ==

== ENCOUNTER 2024-01-31 09:01 | Outpatient (AMB) | payer OTHER, SELFPAY ==
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
[2024-01-31 09:10] VITALS: BP 140/100; PULSE 62; O2SAT 99; BMI 20.5
== END 2024-01-31 09:55 | disposition home or self-care (01) ==
PROVIDERS: PCP Internal Medicine; Visit Provider Physician Assistant Medical
DX: H10.9 Unspecified conjunctivitis (principal)

== ENCOUNTER → 2024-01-31 09:01 | Outpatient (BNVA) | payer OTHER, SELFPAY | PROVIDERS: PCP Internal Medicine; Visit Provider Physician Assistant Medical | DX: H10.9 Unspecified conjunctivitis (principal) | CPT/HCPCS: 99212 ==

== ENCOUNTER 2024-02-08 09:42 | Outpatient (REF) | payer OTHER, SELFPAY ==
[2024-02-08 11:54] LABS: Alanine Aminotransferase 26 U/L (0-40); Albumin Level 4.6 g/dL (3.5-5.0); Alkaline Phosphatase 115 U/L (39-117); Aspartate Amino Transferase 16 U/L (5-37); Bilirubin Direct < 0.2 mg/dL (0.0-0.5); Bilirubin Total 0.2 mg/dL (0.0-1.0); Total Protein 7.6 g/dL (6.5-8.0)
== END 2024-02-08 09:43 | disposition home or self-care (01) ==
LOC: HO.LAB 09:42
PROVIDERS: PCP Internal Medicine; Visit Provider Podiatrist
DX: B35.1 Tinea unguium (principal)
CPT/HCPCS: 36415; 80076

== ENCOUNTER → 2024-02-20 08:59 | Outpatient (BNV) | payer OTHER, SELFPAY | PROVIDERS: PCP Internal Medicine; Visit Provider Internal Medicine Gastroenterology | DX: Z12.11 Encounter for screening for malignant neoplasm of colon (principal); Z86.0100 Personal history of colon polyps, unspecified; K64.0 First degree hemorrhoids | CPT/HCPCS: G0105 ==

== ENCOUNTER → 2024-02-20 08:59 | Day surgery (SDC) | payer OTHER, SELFPAY ==
[2024-02-18 08:14] VITALS: BMI 20.8
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
--- NOTE | 2024-02-20 09:48 | PC.NURSE ---
during pre op pt had a 30-45 second seizure. pt was gazing to left side, non verbal and unresponsive to stimuli during episode. pt was ambulatory and aox4 prior to event. hr remained sinus tach 90s-100 during episode. anesthesia was called to bedside. multiple attempts for iv access but unsuccessful. pt was post ictal. pt transfer to emergency department. report given to jarrell joshi.
[2024-02-20 15:02] VITALS: BP 177/104; PULSE 86; RESP 16; TEMP 36.9; O2SAT 97
[2024-02-20] MEDS: Lactated Ringers 1,000 ML 100 ML IVCONT (15:05)
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
--- NOTE | 2024-02-20 15:35 | P.OPN-COLO_ITS ---
Colonoscopy Operative Note Operative Note Date of Service: 02/20/24 Narrative: Operative Information Procedure Description: Colonoscopy Indication: hx of colon polyps Anesthesia: MAC COLONOSCOPY Instrument: Olympus variable stiffness ADULT scope 190L Colonoscopy Monitoring: Vital signs and clinical assessment, continuous EKG monitoring, Pulse oximetry, Carbon Dioxide monitoring and blood pressure monitoring were done throughout the procedure. Colon withdrawal time was 10 minutes. Procedure: The patient was placed in the left lateral decubitis position and pre-procedure medications were administered. After a digital rectal examination of the ano-rectum, the video colonoscope was inserted into the rectum and advanced through the colon to the cecum/TI. The colonoscope was slowly withdrawn in a retrograde panoramic fashion and the colon mucosa was carefully examined including a retroflexed view of the rectum. Findings and interventions are described below. Procedure Difficulty: moderate Findings: Terminal Ileum-not intubated Cecum:normal Ascending Colon: normal Transverse Colon -normal Descending Colon:normal Sigmoid Colon: normal Rectum: Retroflexion with medium sized internal hemorrhoids seen, grade I Anorectum - normal Intervention: none Colon preparation: [place] Bowel Preparation Scale Right colon; 1-2 Transverse colon: 2 Left colon; 1-2 (0 = Unprepared colon segment with mucosa not seen due to solid stool that cannot be cleared. 1 = Portion of mucosa of the colon segment seen, but other areas of the colon segment not well seen due to staining, residual stool and/or opaque liquid. 2 = Minor amount of residual staining, small fragments of stool and/or opaque liquid, but mucosa of colon segment seen well. 3 = Entire mucosa of colon segment seen well with no residual staining, small fragments of stool or opaque liquid) Impression and Post Procedure Diagnosis: internal hemorrhoids Plan: High fiber diet leaflet Avoid straining at stool, epsom salts and sitz bath, anusol supps or cream Repeat Colonoscopy in 1 year due to fair prep in areas or earlier if clinically indicated Above findings were reviewed with the patient and relevant handouts were provided if indicated.
[2024-02-20 15:41] VITALS: BP 96/52; PULSE 71; RESP 16; TEMP 36.9; O2SAT 95
[2024-02-20 15:55] VITALS: BP 109/79; PULSE 65; RESP 16; O2SAT 98
[2024-02-20 16:14] VITALS: BP 147/90; PULSE 74; RESP 16; O2SAT 98
== END | disposition home or self-care (01) ==
PROVIDERS: PCP Internal Medicine; Visit Provider Internal Medicine Gastroenterology
PROC: 0DJD8ZZ Inspection of Lower Intestinal Tract, Via Natural or Artificial Opening Endoscopic (ICD-10-PCS; CPT 45378; principal; 2024-02-20 15:00)
DX: Z12.11 Encounter for screening for malignant neoplasm of colon (principal); K64.0 First degree hemorrhoids; Z86.0101 Personal history of adenomatous and serrated colon polyps
CPT/HCPCS: G0105; J2250; J2704

== ENCOUNTER 2024-02-20 09:41 | Emergency (ER) | payer OTHER, SELFPAY ==
--- NOTE | 2024-02-20 | ECG_ITS ---
Test Reason : SEIZURE Blood Pressure : / mmHG Vent. Rate : 087 BPM Atrial Rate : 087 BPM P-R Int : 158 ms QRS Dur : 094 ms QT Int : 376 ms P-R-T Axes : 080 104 076 degrees QTc Int : 452 ms Normal sinus rhythm Possible Left atrial enlargement Rightward axis Borderline ECG When compared with ECG of 30-APR-2023 16:39, No significant changes seen Referred By: Rosie Larose Electronically Signed By:JOCELYNE CID
[2024-02-20 09:56] VITALS: BP 142/92; PULSE 83; RESP 18; TEMP 37.2; O2SAT 99; BMI 19.3
--- NOTE | 2024-02-20 10:05 | PC.NURSE ---
Patient arrived via stretcher from PACU accompanied by 2 RNS. Patient alert but minimally responsive. Reports pain in head. Responds yes when asked if he smokes, states yes he drinks etoh daily but unable to reports how much etoh he drinks daily. Slow to respond unable to obtain consistent information on patients medical history. VSS. patient no visible distress. 22 g IV placed in right wrist. Seizure pads placed , ekg obtained
--- NOTE | 2024-02-20 10:24 | PC.NURSE ---
Spoke with sister to update that patient did not have colonoscopy. Sister stating last seizure was x 1month ago. Patient did not take seizure meds last night because he was prepping for colonoscopy and forgot, did take seizure meds this am. Sister reports patient lives with her and she will pick him up when he is ready to go home. States takes patient awhile to become conversant after seizures.
[2024-02-20 10:28] LABS: MANUAL DIFF FLAG NO
[2024-02-20 10:30] LABS: Basophils Absolute Auto 0.1 X10*3/uL (0.0-0.2); Basophils Percent Auto 0.7 % (0-2); Eosinophils Absolute Auto 0.2 X10*3/uL (0.0-0.4); Eosinophils Percent Auto 2.1 % (0-4); Hematocrit 45.4 % (42.0-52.0); Hemoglobin 15.8 g/dl (14.0-18.0); Imm Gran Abs Auto 0.03 X10*3/uL (0.00-0.03); Imm Gran Pct Auto 0.3 % (0.0-0.4); Lymphocytes Absolute Auto 2.1 X10*3/uL (1.2-4.9); Lymphocytes Percent Auto 24.2 % (20-40); Mean Corpuscular HGB Conc 34.8 g/dl (31.0-36.0); Mean Corpuscular Hemoglobin 31.3 pg (27.0-33.0); Mean Corpuscular Volume 90.1 fL (80.0-98.0); Mean Platelet Volume 10.4 fL (9.4-12.4); Monocytes Absolute Auto 0.7 X10*3/uL (0.1-1.2); Monocytes Percent Auto 7.7 % (2-11); Neutrophils Absolute Auto 5.6 x10*3/uL (2.0-8.3); Platelet Count 278 X10*3/uL (160-400); Red Blood Count 5.04 X10*6/uL (4.60-5.80); Red Cell Distribution Width 13.2 % (11.0-16.0); White Blood Count 8.6 X10*3/uL (4.8-10.8)
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
[2024-02-20 10:52] LABS: Anion Gap 12 (12-20); Blood Urea Nitrogen 5 mg/dL (9-16); Calcium 9.4 mg/dL (8.4-10.2); Carbon Dioxide 28 mmol/L (22-29); Chloride 104 mmol/L (96-108); Creatinine Clr Calc Pharmacy 99.2; Estimated Glomerular Filt Rate > 60; Glucose Random 102 mg/dL (60-115); Potassium 3.6 mmol/L (3.3-5.1); Sodium 140 mmol/L (135-145)
[2024-02-20 10:54] LABS: Phenytoin Dilantin 9.4 ug/mL (10.0-20.0)
--- NOTE | 2024-02-20 12:22 | PC.NURSE ---
Per pharmacy IV dilantin to be given 50mg/ min max dose. Provider stating to give over 30min. Medication diluted and given through IV in right hand. Within minute of starting dose patient reporting pain and area red. IV clamped and discontinued, provider aware - calling pharmacy for different medication. IV removed and ice pack applied
[2024-02-20 12:25] VITALS: BP 132/88; PULSE 86; RESP 18; O2SAT 97
--- NOTE | 2024-02-20 12:38 | PC.NURSE ---
20g iv placed in right arm. pharmacy called to review dilantin order. per pharmacy removed previous dose had been documented as patient did not receive dose. Pharmacy to update order- stating to give over 1 hr in 100ml bag
[2024-02-20] MEDS: Phenytoin Sodium 500 MG in 0.9 % Sodium Chloride 100 ML 110 MG IV (12:48)
--- NOTE | 2024-02-20 13:26 | PC.NURSE ---
Per PACU nurse Uma patient will not go for procedure today as anesthesia feels as though he is not able to consent d/t being post ictal and having a seizure this morning
[2024-02-20 14:20] VITALS: BP 139/94; PULSE 81; RESP 22; TEMP 37.1; O2SAT 96
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
--- NOTE | 2024-02-20 14:42 | PC.NURSE ---
Alert and oriented, offers not complaints other than feeling hungry. PIECER UP at bedside to transport patient to OR for colonoscopy. Patient reports no pain in right wrist where IV was removed, area without swelling remains pink. VSS , left ER with all personal belongings. Report given to Uma LARRY
[2024-02-20 14:55] VITALS: BP 177/104; PULSE 86; RESP 16; TEMP 36.9; O2SAT 97
== END 2024-02-20 14:43 | disposition home or self-care (01) ==
PROVIDERS: Emergency Provider Emergency Medicine Emergency Medical Services
DX: G40.909 Epilepsy, unspecified, not intractable, without status epilepticus (principal); Z87.820 Personal history of traumatic brain injury; Z80.0 Family history of malignant neoplasm of digestive organs; Z79.899 Other long term (current) drug therapy
CPT/HCPCS: 36415; 80048; 80184; 80185; 85025; 93005; 96365; 96366; 99284; 99285; J1165

== ENCOUNTER → 2024-02-20 09:59 | Outpatient (BNV) | payer OTHER, SELFPAY | PROVIDERS: Emergency Provider Emergency Medicine Emergency Medical Services; Visit Provider Internal Medicine | DX: R94.31 Abnormal electrocardiogram [ECG] [EKG] (principal) | CPT/HCPCS: 93010 ==

== ENCOUNTER 2024-02-20 19:11 | Emergency (ER) | payer OTHER, SELFPAY ==
--- NOTE | ~2024-02-20 | XR_ITS ---
EXAMINATION: XR ABDOMEN KUB CLINICAL INDICATION: Constipation COMPARISON: None available. TECHNIQUE: AP supine and additional AP supine radiographs of the abdomen and pelvis FINDINGS: Right upper quadrant presumed cholecystectomy clips are noted in the visualized lung bases are clear. Scattered bowel gas is noted in nondistended small and large bowel segments. No gross free peritoneal gas. Scattered pelvic phleboliths. Multiple level endplate hypertrophic changes of the lumbar spine. XR/XR KUB IMPRESSION: Normal bowel gas pattern. Scattered bowel gas in nondistended small and large bowel segments. Electronically signed by: Senthil Alvarado MD 02/21/2024 12:19 AM EDT
[2024-02-20 19:25] VITALS: BP 165/98; BP 178/90; PULSE 77; PULSE 82; RESP 16; TEMP 37.1; O2SAT 99; BMI 17.8
--- NOTE | 2024-02-20 22:00 | PC.NURSE ---
Patient was given vanilla pudding, assisted by hydraulic controls technician with feeding, tolerated well.
[2024-02-20 22:02] VITALS: BP 156/108; PULSE 97; RESP 20; TEMP 36.8; O2SAT 97
--- NOTE | 2024-02-20 22:12 | MHC.EDTECH ---
at this time this tech attempted to get a proper blood pressure on the pt and he was yelling excessively, continues to yell for food, has gotten louder over the past three hours, not retractable and combative. Both tech and RN attempted to ease pt however his screaming became worse with each encounter
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
[2024-02-21 02:20] VITALS: BP 149/87; PULSE 69; RESP 18; TEMP 36.5; O2SAT 98
[2024-02-21 05:58] VITALS: BP 151/97; PULSE 72; RESP 16; TEMP 36.9; O2SAT 95
[2024-02-21 06:08] VITALS: BP 151/97; PULSE 72; RESP 16; TEMP 36.9; O2SAT 95
== END 2024-02-21 06:20 | disposition home or self-care (01) ==
PROVIDERS: Emergency Provider Emergency Medicine
DX: K59.00 Constipation, unspecified (principal); G40.909 Epilepsy, unspecified, not intractable, without status epilepticus; Z87.820 Personal history of traumatic brain injury; Z79.899 Other long term (current) drug therapy
CPT/HCPCS: 74018; 99283; 99284

== ENCOUNTER 2024-02-22 08:57 | Emergency (ER) | payer OTHER, SELFPAY ==
[2024-02-22 09:03] VITALS: BP 142/102; PULSE 78; O2SAT 100
[2024-02-22 09:06] VITALS: BP 157/91; PULSE 72; RESP 18; TEMP 36.9; O2SAT 96; BMI 21.4
[2024-02-22 09:11] VITALS: PULSE 70
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
[2024-02-22 10:08] VITALS: BP 131/91; PULSE 64; RESP 17; TEMP 36.9; O2SAT 94
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
[2024-02-22 10:21] LABS: MANUAL DIFF FLAG NO
[2024-02-22 10:23] LABS: Basophils Absolute Auto 0.1 X10*3/uL (0.0-0.2); Basophils Percent Auto 0.4 % (0-2); Eosinophils Absolute Auto 0.4 X10*3/uL (0.0-0.4); Eosinophils Percent Auto 2.9 % (0-4); Hematocrit 41.4 % (42.0-52.0); Hemoglobin 14.8 g/dl (14.0-18.0); Imm Gran Abs Auto 0.05 X10*3/uL (0.00-0.03); Imm Gran Pct Auto 0.3 % (0.0-0.4); Lymphocytes Absolute Auto 2.4 X10*3/uL (1.2-4.9); Lymphocytes Percent Auto 15.8 % (20-40); Mean Corpuscular HGB Conc 35.7 g/dl (31.0-36.0); Mean Corpuscular Hemoglobin 31.8 pg (27.0-33.0); Mean Corpuscular Volume 88.8 fL (80.0-98.0); Mean Platelet Volume 10.4 fL (9.4-12.4); Monocytes Absolute Auto 1.2 X10*3/uL (0.1-1.2); Monocytes Percent Auto 7.9 % (2-11); Neutrophils Percent Auto 72.7 % (45-73); Platelet Count 247 X10*3/uL (160-400); Red Blood Count 4.66 X10*6/uL (4.60-5.80); Red Cell Distribution Width 13.2 % (11.0-16.0); White Blood Count 15.1 X10*3/uL (4.8-10.8)
[2024-02-22 10:51] LABS: Alanine Aminotransferase 18 U/L (0-40); Alkaline Phosphatase 89 U/L (39-117); Anion Gap 12 (12-20); Aspartate Amino Transferase 24 U/L (5-37); Bilirubin Total 0.2 mg/dL (0.0-1.0); Blood Urea Nitrogen 7 mg/dL (9-16); Calcium 9.4 mg/dL (8.4-10.2); Carbon Dioxide 27 mmol/L (22-29); Chloride 106 mmol/L (96-108); Estimated Glomerular Filt Rate > 60; Glucose Random 113 mg/dL (60-115); Lipase 23 U/L (8-78); Magnesium 2.1 mg/dL (1.6-2.6); Potassium 3.2 mmol/L (3.3-5.1); Sodium 142 mmol/L (135-145); Total Protein 6.7 g/dL (6.5-8.0)
[2024-02-22 10:52] LABS: Ethanol < 10 mg/dL
--- NOTE | 2024-02-22 11:24 | PC.NURSE ---
Assumed care of this patient at 1100, patient resting quietly on stretcher at this time, denies any pain, spoke to sister Dalila (HCP) on phone [phone]. Dalila states that patient has not had a BM since colonoscopy on 02/19 and has been having these vague complaints of feeling like he's going to since 02/19. Patient provided urinal to give urine sample.
[2024-02-22 12:22] VITALS: BP 144/91; PULSE 65; RESP 16; TEMP 36.8; O2SAT 97
[2024-02-22] MEDS: Docusate Sodium 100 MG CAPSULE PO (12:22)
[2024-02-22] MEDS: Ibuprofen 400 MG TABLET PO (12:22)
[2024-02-22 12:52] VITALS: BP 144/91; PULSE 65; RESP 16; TEMP 36.8; O2SAT 97
== END 2024-02-22 12:35 | disposition home or self-care (01) ==
PROVIDERS: Physician Assistant; Emergency Provider Emergency Medicine Emergency Medical Services
DX: M25.512 Pain in left shoulder (principal); M25.511 Pain in right shoulder; K59.00 Constipation, unspecified; E78.5 Hyperlipidemia, unspecified; F17.210 Nicotine dependence, cigarettes, uncomplicated; Z87.820 Personal history of traumatic brain injury; Z79.899 Other long term (current) drug therapy
CPT/HCPCS: 36415; 80053; 80307; 83690; 83735; 85025; 99283; 99284

== ENCOUNTER 2024-02-23 21:42 | Emergency (ER) | payer OTHER, SELFPAY ==
[2024-02-23 21:46] VITALS: BP 138/70; PULSE 80; O2SAT 98
[2024-02-23 21:48] VITALS: BMI 18.6
[2024-02-23 21:53] VITALS: BP 172/94; PULSE 71; RESP 16; TEMP 36.9; O2SAT 98
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
[2024-02-23 22:37] VITALS: BP 172/94; PULSE 71; RESP 16; TEMP 36.9; O2SAT 98
== END 2024-02-23 22:48 | disposition home or self-care (01) ==
PROVIDERS: Emergency Provider Internal Medicine; PCP Internal Medicine
DX: K64.8 Other hemorrhoids (principal); F17.210 Nicotine dependence, cigarettes, uncomplicated; Z79.899 Other long term (current) drug therapy
CPT/HCPCS: 99284

== ENCOUNTER 2024-03-04 14:44 | Outpatient (AMB) | payer OTHER, SELFPAY ==
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
[2024-03-04 14:50] VITALS: BP 142/84; BMI 20.1
== END 2024-03-04 15:10 | disposition home or self-care (01) ==
PROVIDERS: PCP Internal Medicine; Visit Provider Nurse Practitioner Family
DX: K59.09 Other constipation (principal); K64.9 Unspecified hemorrhoids

== ENCOUNTER → 2024-03-04 14:44 | Outpatient (BNVA) | payer OTHER, SELFPAY | PROVIDERS: PCP Internal Medicine; Visit Provider Nurse Practitioner Family | DX: K59.09 Other constipation (principal); K64.9 Unspecified hemorrhoids | CPT/HCPCS: 99212 ==

== ENCOUNTER 2024-03-10 10:50 | Outpatient (AMB) | payer OTHER, SELFPAY ==
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
[2024-03-10 11:04] VITALS: BP 132/86; PULSE 78; O2SAT 98; BMI 19.9
== END 2024-03-10 12:52 | disposition home or self-care (01) ==
PROVIDERS: PCP Internal Medicine; Visit Provider Nurse Practitioner Family
DX: Z98.890 Other specified postprocedural states (principal); K64.8 Other hemorrhoids; K59.04 Chronic idiopathic constipation
CPT/HCPCS: 99213

== ENCOUNTER → 2024-03-10 10:50 | Outpatient (BNVA) | payer OTHER, SELFPAY | PROVIDERS: PCP Internal Medicine; Visit Provider Nurse Practitioner Family | DX: K64.8 Other hemorrhoids (principal); K59.04 Chronic idiopathic constipation; Z98.890 Other specified postprocedural states | CPT/HCPCS: 99212 ==

== ENCOUNTER 2024-06-15 10:16 | Outpatient (AMB) | payer OTHER, SELFPAY ==
--- OUTSIDE RECORDS SUMMARY | 2024-06-15 11:30 | XMS_ITS ---
Author Organization [facility] jermaine [place] Address [address] [facility] [place] [address] Care Team Providers Care Slot Service Specialist Name Role Phone Rui Black MDneth Primary Care Provider Anurag ValenzuelaReshmae Unavailable [phone] Allergies No Known Allergies REASON FOR VISIT Painful nail(s) aggrevated by shoes causing difficulty standing/walking Medications Medication SIG (Take, Route, Frequency, Duration) Notes Start Date End Date Status Probiotic Active tiZANidine HCl 4 MG Oral for 28 Active Senna 8.6 MG Oral for 28 Activ e Terbinafine HCl 250 MG 1 tablet Orally O nce a day for 7 days days then stop for 3 weeks repeat cycle for 90 days 07/08/2023 Active Ciclopirox Olamine 0.77 % 1 application Externally Twice a day for 30 days Active Fiber-Lax 625 MG Oral for 28 A ctive Dilantin 30 MG Oral for 28 Act tip Lacosamide 150 MG 1 tablet Orally Twic e a day Active Linzess 290 MCG Oral for 30 Ac tive Dilantin 100 MG 2 capsules Orally qd Active Sertraline HCl 100 MG Oral for 28 Active Senna 8.6 MG Oral for 28 Activ e Vitamin D (Ergocalciferol) 1.25 MG (52580 UT) Oral for 29 Active tiZANidine HCl 4 MG 1 tablet as needed O ral Three times a day Active Linzess 290 MCG Oral for 30 Ac tive Fiber-Lax 625 MG Oral for 28 A ctive Probiotic - as directed Orally Active Folic Acid 1 MG Oral for 28 Ac tive Phenytoin Sodium Extended 100 MG Oral for 28 Active Lacosamide 150 MG Oral for 28 Active Social History Tobacco Use: Social History Observation Description Date Details (start date - stop date) Current Smoker NA - NA Tobacco Use/Smoking Question Answer Notes Are you a: current smoker How often do you smoke cigarettes? every day How many cigarettes a day do you smoke? 11- Alcohol Screen Question Answer Notes Did you have a drink containing alcohol in the p ast year? No Points 0 Interpretation Negative Tobacco use other than smoking: Question Answer Notes Are you an other tobacco user? No Vital Signs Height 5ft9in in 11/04/2023 Weight 135 lbs 11/04/2023 BMI 19.93 kg/m2 11/04/2023 Encounters Encounter Location Date Provider Diagnosis [facility] [address] [address] 11/04/2023 Apurva Valenzuela Tinea unguium B35.1 Assessments Encounter Date Diagnosis (ICD Code) Assessment Notes Treatment Notes Treatment Clinical Notes Section Notes 11/04/2023 Tinea unguium (ICD-10 - B35.1) 11/04/2023 Other Patient Educated with: WOUND CARE INSTRUCTIONS.p df (WOUND CARE INSTRUCTIONS.p df) Plan Of Treatment Treatment Notes Assessment Notes Other Patient Educated wit h: WOUND CARE INSTRUCTIONS.pdf (WOUND CARE INSTRUCTIONS.pdf) Pending Test Test Name Order Date *Liver Function Test (LFT) 11/04/2023 Next Appt Details Follow Up: as scheduled, [place] son: Provider Name:Apurva Valenzuela , 10/08/2024 02:30:00 PM, [address] [place] [address], [id number], Progress Notes * EMILYCarlito BAILEYDOB: [birth year] (53 yo M)Acc No.[id number]:11/04/2023 Progress Note Patient:?Carlito Ewing Provider:?Apurva Valenzuela DPM :1970???Age:53 Y???Sex:Male Eduard e:11/04/2023 Address:[address] [place] [address], [place] [id number] Pcp:Aquilino Black MD Subjective: * Chief Complaints: * ???Painful nail(s) aggrevate d by shoes causing difficulty standing/walking * HPI: ???Painful Nails:?Pt States Last PCP Visit:?Date:?06/14/2023 ?Treatments:?Pulse Dose PO Antifungal Treatment , relates adherence to recom tx , denies any adverse side effects to medication , (i.e. rash, hives, taste/GI disturbance, yellow skin/eye discoloration, discolored stools, or any other unusual bodily complaints)June 2023.? * ROS:?General/Constitutional:?Nausea?denies.?Vomiting?denies.?Hunger Thirst?denies.?Loss appetite?denies.?Chills?denies.?Fatigue?denies.?Fever?denies.?Night Sweats?denies.?Unexplained weight loss?denies.?Unexplained weight gain?denies.?HEENTM:?Dentures?denies.?Dizziness?denies.?Glasses/contacts?admits.?Retinopathy?de nies.?Blurred/double vision?denies.?TMJ?denies.?Discharge/drainage?denies.?Implants?denies.?Sore throat?denies.?Dental implants?denies.?Hard of hearing ?denies.?Difficulty chewing/swallowing/speaking?denies.?Nose bleeds?denies.?Sore mouth?denies.?Respiratory:?On Oxygen?denies.?Pneumonia/pleurisy?denies.?Bronchitis?denies.?Emphysema?denies.?C oughing?denies.?Cough blood?denies.?Shortness of breath?denies.?Wheezing?denies.?Cardiovascular:?Pacemaker?denies.?MVP?denies.?WPW?denies.?CHF?denies.?Heart attack?denies.?Septal defect?denies.?Rapid beat?denies.?Chest pain ?denies.?Atrial Fib.?denies.?Murmur/Palpitations?denies.?Gastrointestinal:?Hemorrhoids?denies.?Stomach/Abdominal pain?denies.?Dark blood stool?denies.?Irritable bowel ?denies.?Constipation?denies.?Diarrhea?denies.?Hematology:?Swelling?denies.?Clots?denies.?Varicose Veins?denies.?Bruising?denies.?Bleeding problem?denies.?Genitourinary:?Blood urine?denies.?Frequent/Painfu/urination/bladder control?denies.?Kidney stones?denies.?Infection (UTI)?denies.?Nephropathy?denies.?sex trans dis (STD)?denies.?Prostate?denies.?Musculoskeletal:?Hammertoes?denies.?Bunions?denies.?Back Pain?denies.?Muscle Cramps/ Resting?denies.?Muscle cramps / walking?denies.?Generalized aches and pains?denies.?Weakness?denies.?Integ.:?Kim?denies.?Scars?denies.?Corns/calluses?denies.?Ingrown nails?denies.?Painful nails?admits.?Open Sores?denies.?Rashes?denies.?Neurologic:?Difficulty sleeping?denies.?Brain disorder?denies.?Numbness?denies.?Balance trouble?denies.?Confusion?denies.?Fainting/blackouts?denies.?Tingling?denies.?Tr emors?denies.? * Medical History:? * Surgical History:?vns replac e battery 04/13 * Hospitalization/Major Diagno stic Procedure:?Denies Past Hospitalization * Family History:?Mother: dece ased, diagnosed with Unspecified essential hypertension, Unspecified heart disease, Unspecified cerebral artery occlusion with cerebral infarction.?Father: , diagnosed with Unspecified essential hypertension, Other malignant neoplasm of unspecified site.?Siblings: diagnosed with Unspecified cerebral artery occlusion with cerebral infarction.? * Social History:?Tobacco Use:?Tobacco Use/Smoking?Are you a:?current smoker ?How often do you smoke cigarettes??every day ?How many cigarettes a day do you smoke??11-20 ?Tobacco use other than smoking?Are you an other tobacco user??No ???Drugs/Alcohol:?Drugs?Have you used drugs other than those for medical reasons in the past 12 months??No ?Alcohol Screen?Did you have a drink containing alcohol in the past year??No ?Points?0 ?Interpretation?Negative ???Miscellaneous:?no Caffeine. ?no Children. ?no Exercise. ?Marital status: single. ?Occupation: Works at [employer].. * Medications:?TakingProbiotic - Tablet Chewable as directed Orally Fiber-Lax 625 MG Tablet Oral Folic Acid 1 MG Tablet Oral Lacosamide 150 MG Tablet Oral Phenytoin Sodium Extended 100 MG Capsule Oral Senna 8.6 MG Tablet Oral Sertraline HCl 100 MG Tablet Oral tiZANidine HCl 4 MG Tablet 1 tablet as needed Oral Three times a dayVitamin D (Ergocalciferol) 1.25 MG (27241 UT) Capsule Oral Linzess 290 MCG Capsule Oral Dilantin 100 MG Capsule 2 capsules Orally qdDilantin 30 MG Capsule Oral Fiber-Lax 625 MG Tablet Oral Lacosamide 150 MG Tablet 1 tablet Orally Twice a dayLinzess 290 MCG Capsule Oral Probiotic Senna 8.6 MG Tablet Oral tiZANidine HCl 4 MG Tablet Oral Ciclopirox Olamine 0.77 % Cream 1 application Externally Twice a dayTerbinafine HCl 250 MG Tablet 1 tablet Orally Once a day for 7 days days then stop for 3 weeks repeat cycleMedication List reviewed and reconciled with the patientTaking Probiotic - Tablet Chewable as directed Orally Taking Fiber-Lax 625 MG Tablet Oral Taking Folic Acid 1 MG Tablet Oral Taking Lacosamide 150 MG Tablet Oral Taking Phenytoin Sodium Extended 100 MG Capsule Oral Taking Senna 8.6 MG Tablet Oral Taking Sertraline HCl 100 MG Tablet Oral Taking tiZANidine HCl 4 MG Tablet 1 tablet as needed Oral Three times a dayTaking Vitamin D (Ergocalciferol) 1.25 MG (70521 UT) Capsule Oral Taking Linzess 290 MCG Capsule Oral Taking Dilantin 100 MG Capsule 2 capsules Orally qdTaking Dilantin 30 MG Capsule Oral Taking Fiber-Lax 625 MG Tablet Oral Taking Lacosamide 150 MG Tablet 1 tablet Orally Twice a dayTaking Linzess 290 MCG Capsule Oral Taking Probiotic Taking Senna 8.6 MG Tablet Oral Taking tiZANidine HCl 4 MG Tablet Oral Taking Ciclopirox Olamine 0.77 % Cream 1 application Externally Twice a dayTaking Terbinafine HCl 250 MG Tablet 1 tablet Orally Once a day for 7 days days then stop for 3 weeks repeat cycleMedication List reviewed and reconciled with the patient * Allergies:?N.K.D.A.yes[Aller gies Verified] Objective: * Vitals:?Ht: 5ft9in, Wt:135, BMI:19.93, Shoe size: 9, Ht-cm: 175.26 cm, Wt-k.23 kg. * Examination: ???General Examination: ?GENERAL APPEARANCE:?Reveals a pleasant, alert, well nourished, well- developed, well hydrated individual, who demonstrates proper attention to hygiene/body habitus, and is in no acute distress, Pt serves as own historian for office visit today , Pt accompanied by , Female , and/who is physically present in exam room at time of visit , additional Historian.?ORIENTED:?person, place, and time.?Dermatologic: ?SKIN FINDINGS:? Skin shows resolved sign(s) of, erythema, scaling, in a moccasin fashion, no fissure(s) present, B/L, approximately 80% LESS.?Nails: ?NAILS are:?Elongated, overgrown, dystrophic, lytic, greater than 3mm thick, discolored and friable with crumbly malodorous subungual debris, with pain on palpation , 2-5 Left foot , 1-5 Right foot , proximal clearing of nail 40? percent.? Assessment: * Assessment: 1.?Tinea unguium - B35.1 (Pr khris)? Plan: * Treatment: 2.?Others? Notes: Patient Educated with: WOUND CARE INSTRUCTIONS.pdf (WOUND CARE INSTRUCTIONS.pdf)?? * Procedure Codes:? * Preventive Medicine:? ??Counseling:?Discussion:?-13: Office or other outpatient visit for the evaluation and management of an established patient, which required a medically appropriate history and/or examination and LOW level of DECISION MAKING for: 1 STABLE ACUTE UNCOMPLICATED PROBLEM, 2 OR MORE MINOR PROBLEMS, OR 1 STABLE CHRONIC PROBLEM, THAT POSE(S) A LOW RISK FOR MORBIDITY/MORTALITY. The visit on the day of the encounter encompassed interpreting the data and educating the patient as to the nature of their condition, treatment options available according to their individual PMH, meds, allergies, and overall health/living conditions, as well as any potential risks or complications that may occur from a failure to adhere to, and participate in, the recommended course of therapy. The discussion included a complete verbal, and/or written explanation of the examination results, any x-rays taken, the proposed diagnosis, and outline of the treatment plan. A schedule for future care needs was also explained. The patient verbalized an understanding of the instructions at this time and agreed to be an active participant in their treatment. If the patient should think of any questions or concerns after the visit, I have encouraged the patient to call the office.?F/U Fungal nails:?Reviewed with the patient the time needed before we start seeing results with the oral Lamisil. Discussed the results that we hope to see and that nicolle a topical medication to the nails may also help. We discussed the duration of time that the Lamisil will work on the nails for. We should wait 1 year before we take the Lamisil again., Nail debridement performed extensively to reduce/remove overall nail length and girth, subungual debris, and necrotic tissue, by manual and electrical means with use of a nail nipper and/or dremel, to more viable healthy nail plate or bed tissue. Silver nitrate used for any petechial bleeding as necessary, Repeat LFT ordered.? * Follow Up:?as scheduled * Images: * Sign off status: Completed true * Provider:?Apurva Valenzuela DPM Date:?2023 Generated for Toni gregorio/Dawn/Sofiya on:?06/15/2024 11:30 AM EST History and Physical Notes * HPI (History of Present Illness) Category Sub-Category Detail Notes Category Not es Painful Nails Treatments: Pulse Dose PO An tifungal Treatment , relates adherence to recom tx , denies any adverse side effects to medication , (i.e. rash, hives, taste/GI disturbance, yellow skin/eye discoloration, discolored stools, or any other unusual bodily complaints)June 2023 Pt States Last PCP Visit: Date:: 06/14/2023 Examination Category Sub-Category Detail Notes Category Not es Dermatologic SKIN FINDINGS: Skin shows resol cyndi sign(s) of, erythema, scaling, in a moccasin fashion, no fissure(s) present, B/L, approximately 80% LESS ULCER: General Examination GENERAL APPEARANCE: Reveals a pleasant, alert, well nourished, well-developed, well hydrated individual, who demonstrates proper attention to hygiene/body habitus, and is in no acute distress, Pt serves as own historian for office visit today , Pt accompanied by , Female , and/who is physically present in exam room at time of visit , additional Historian ORIENTED: person, place, and t tita Nails NAILS are: Elongated, overg rown, dystrophic, lytic, greater than 3mm thick, discolored and friable with crumbly malodorous subungual debris, with pain on palpation , 2-5 Left foot , 1-5 Right foot , proximal clearing of nail 40 percent
--- OUTSIDE RECORDS SUMMARY | 2024-06-15 11:30 | XMS_ITS ---
Author Organization [facility] jermaine [place] Address [address] [place] [address] Care Team Providers Care Malt Loader Name Role Phone Wayne MENDOZA, Aquilino Primary Care Provider Anurag ValenzuelaReshmae Unavailable [phone] Allergies No Known Allergies REASON FOR VISIT Painful nail(s) aggrevated by shoes causing difficulty standing/walking Medications Medication SIG (Take, Route, Frequency, Duration) Notes Start Date End Date Status Ciclopirox Olamine 0.77 % 1 application Externally Twice a day for 30 days Active Terbinafine HCl 250 MG 1 tablet Orally O nce a day for 7 days days then stop for 3 weeks repeat cycle for 90 days 07/08/2023 Not-Taking Probiotic - as directed Orally Active Fiber-Lax 625 MG Oral for 28 N ot-Taking Folic Acid 1 MG Oral for 28 Ac tive Senna 8.6 MG Oral for 28 Activ e tiZANidine HCl 4 MG Oral for 28 Active Lacosamide 150 MG 1 tablet Orally Twic e a day Active Linzess 290 MCG Oral for 30 Ac tive Probiotic Active Vitamin D (Ergocalciferol) 1.25 MG (88672 UT) Oral for 29 Active Linzess 290 MCG Oral for 30 No t-Taking Dilantin 100 MG 2 capsules Orally qd Active Dilantin 30 MG Oral for 28 Not -Taking Fiber-Lax 625 MG Oral for 28 A ctive Sertraline HCl 100 MG Oral for 28 Active tiZANidine HCl 4 MG 1 tablet as needed O ral Three times a day Not-Taking Lacosamide 150 MG Oral for 28 Not-Taking Phenytoin Sodium Extended 100 MG Oral for 28 Not-Taking Senna 8.6 MG Oral for 28 Not-T aking Social History Tobacco Use: Social History Observation Description Date Details (start date - stop date) Current Smoker NA - NA Tobacco Use/Smoking Question Answer Notes Are you a: current smoker How often do you smoke cigarettes? every day How many cigarettes a day do you smoke? 11-20 Tobacco use other than smoking: Question Answer Notes Are you an other tobacco user? No Vital Signs Height 5ft9in in 02/06/2024 Weight 135 lbs 02/06/2024 BMI 19.93 kg/m2 02/06/2024 Blood pressure systolic 120 mm Hg 02/06/20 24 Blood pressure diastolic 70 mm Hg 024 Encounters Encounter Location Date Provider Diagnosis [facility] [place] [address] [place] [address] 02/06/2024 Apurva Valenzuela Tinea unguium B35.1 ; Pain in right toe(s) M79.674 and Pain in left toe(s) M79.675 Assessments Encounter Date Diagnosis (ICD Code) Assessment Notes Treatment Notes Treatment Clinical Notes Section Notes 02/06/2024 Tinea unguium (ICD-10 - B35.1) 02/06/2024 Pain in right toe(s) (ICD-10 - M79.674) 02/06/2024 Pain in left toe(s) (ICD-10 - M79.675) 02/06/2024 Other Plan Of Treatment Pending Test Test Name Order Date *Liver Function Test (LFT) 02/06/2024 Next Appt Details Follow Up: as scheduled, [place] son: Provider Name:Apurva Valenzuela , 10/08/2024 02:30:00 PM, [address] [place], [address], Progress Notes * ARSENIOCarlito COYLEDOB: [birth year] (53 yo M)Acc No.[id number]:02/06/2024 Progress Note Patient:Carlito CASAS Provider:?Apurva Valenzuela DPM :1970???Age:53 Y???Sex:Male Eduard e:02/06/2024 Address:[address] [place] [address], [id number] Pcp:Aquilino Black MD Subjective: * Chief Complaints: * ???Painful nail(s) aggrevate d by shoes causing difficulty standing/walking * HPI: ???Painful Nails:?Pt States Last PCP Visit:?Date:?01/15/2024 ?Treatments:?Pulse Dose PO Antifungal Treatment ,started?June 2023.? nealf is unsure if pt is still taking the medication- Niece is unsure of any side effects. * ROS:?General/Constitutional:?Nausea?denies.?Vomiting?denies.?Hunger Thirst?denies.?Loss appetite?denies.?Chills?denies.?Fatigue?denies.?Fever?denies.?Night Sweats?denies.?Unexplained weight loss?denies.?Unexplained [...] than smoking?Are you an other tobacco user??No ???Miscellaneous:?Caffeine: no. ?Children: no. ?Exercise: no. ?Marital status: single. ?Occupation: Works at [employer].. * Medications:?TakingProbiotic - Tablet Chewable as directed Orally Folic Acid 1 MG Tablet Oral Sertraline HCl 100 MG Tablet Oral Vitamin D (Ergocalciferol) 1.25 MG (70172 UT) Capsule Oral Dilantin 100 MG Capsule 2 capsules Orally qd Fiber-Lax 625 MG Tablet Oral Lacosamide 150 MG Tablet 1 tablet Orally Twice a day Linzess 290 MCG Capsule Oral Probiotic Senna 8.6 MG Tablet Oral tiZANidine HCl 4 MG Tablet Oral Ciclopirox Olamine 0.77 % Cream 1 application Externally Twice a day Taking Probiotic - Tablet Chewable as directed Orally Taking Folic Acid 1 MG Tablet Oral Taking Sertraline HCl 100 MG Tablet Oral Taking Vitamin D (Ergocalciferol) 1.25 MG (29036 UT) Capsule Oral Taking Dilantin 100 MG Capsule 2 capsules Orally qd Taking Fiber-Lax 625 MG Tablet Oral Taking Lacosamide 150 MG Tablet 1 tablet Orally Twice a day Taking Linzess 290 MCG Capsule Oral Taking Probiotic Taking Senna 8.6 MG Tablet Oral Taking tiZANidine HCl 4 MG Tablet Oral Taking Ciclopirox Olamine 0.77 % Cream 1 application Externally Twice a day Not-Taking/PRNFiber-Lax 625 MG Tablet Oral Lacosamide 150 MG Tablet Oral Phenytoin Sodium Extended 100 MG Capsule Oral Senna 8.6 MG Tablet Oral tiZANidine HCl 4 MG Tablet 1 tablet as needed Oral Three times a day Linzess 290 MCG Capsule Oral Dilantin 30 MG Capsule Oral Terbinafine HCl 250 MG Tablet 1 tablet Orally Once a day for 7 days days then stop for 3 weeks repeat cycle Medication List reviewed and reconciled with the patientNot-Taking/PRN Fiber-Lax 625 MG Tablet Oral Not-Taking/PRN Lacosamide 150 MG Tablet Oral Not-Taking/PRN Phenytoin Sodium Extended 100 MG Capsule Oral Not-Taking/PRN Senna 8.6 MG Tablet Oral Not-Taking/PRN tiZANidine HCl 4 MG Tablet 1 tablet as needed Oral Three times a day Not-Taking/PRN Linzess 290 MCG Capsule Oral Not-Taking/PRN Dilantin 30 MG Capsule Oral Not-Taking/PRN Terbinafine HCl 250 MG Tablet 1 tablet Orally Once a day for 7 days days then stop for 3 weeks repeat cycle Medication List reviewed and reconciled with the patient * Allergies:?N.K.D.A.yes[Aller gies Verified] Objective: * Vitals:?Ht: 5ft9in, Wt:135, BMI:19.93, Shoe size: 9, BP:120/70mm Hg, Ht-cm: 175.26 cm, Wt-k.23 kg. * Examination: [...] , additional Historian.?ORIENTED:?person, place, and time.?Dermatologic: ?SKIN FINDINGS:?Skin exam reveals normal color, texture, elasticity, and turgor. There are no masses, nor excrescences. The interspaces are clear, B/L.?Nails: ?NAILS are:?Elongated, overgrown, dystrophic, lytic, greater than 3mm thick, discolored and friable with crumbly malodorous subungual debris, with pain on palpation , 2-5 Left foot , 1-5 Right foot , proximal clearing of nail 60? percent.? Assessment: * Assessment: 1.?Tinea unguium - B35.1 (Pr imary)???2.?Pain in right toe(s) - M79.674???3.?Pain in left toe(s) - M79.675??? Plan: * Treatment: * Procedure Codes:? * Preventive Medicine:? ??Counseling:?Tobacco use:?Type of Tobacco Use Cessation Counseling provided?Smoking cessation education ?Patient counseled on the dangers of smoking and urged to quit:?01/21/2024 ?Discussion:?-13: Office or other outpatient visit for the [...] Provider:?Apurva Valenzuela DPM Date:?2023 Generated for Toni gregorio/Dawn/Kettyitting on:?06/15/2024 11:29 AM EST History and Physical Notes * HPI (History of Present Illness) Category Sub-Category Detail Notes Category Not es Painful Nails Treatments: Pulse Dose PO An tifungal Treatment ,started June 2023 neice is unsure if pt is still taking the medication- Niece is unsure of any side effects Pt States Last PCP Visit: Date:: 01/15/2024 Examination Category Sub-Category Detail Notes Category Not es Dermatologic SKIN FINDINGS: Skin exam reveal s normal color, texture, elasticity, and turgor. There are no masses, nor excrescences. The interspaces are clear, B/L ULCER: General Examination GENERAL APPEARANCE: Reveals a [...] Right foot , proximal clearing of nail 60 percent
--- OUTSIDE RECORDS SUMMARY | 2024-06-15 11:30 | XMS_ITS | Patient Health Record ---
[facility] Froilan jermaine MonterrosoTeja Address [address] [place] [address] Care Team Providers Care Waiter/Waitress Tavern Name Role Phone Vu Black MDh Primary Care Provider Anurag ValenzuelaApurva Unavailable [phone] VeraKavitha westbrook Unavailable [phone] Allergies No Known Allergies Reason For Referral No Information Medications Medication SIG (Take, Route, Frequency, Duration) Notes Start Date End Date Status Linzess 290 MCG Oral for 30 Ac tive Dilantin 30 MG Oral for 28 Not -Taking Probiotic Active Terbinafine HCl 250 MG 1 tablet Orally O nce a day for 7 days days then stop for 3 weeks repeat cycle for 90 days 07/08/2023 Not-Taking tiZANidine HCl 4 MG 1 tablet as needed O ral Three times a day Not-Taking Lacosamide 150 MG 1 tablet Orally Twic e a day Active Linzess 290 MCG Oral for 30 No t-Taking Dilantin 100 MG 2 capsules Orally qd Active Senna 8.6 MG Oral for 28 Not-T aking Fiber-Lax 625 MG Oral for 28 A ctive Sertraline HCl 100 MG Oral for 28 Active Lacosamide 150 MG Oral for 28 Not-Taking Vitamin D (Ergocalciferol) 1.25 MG (04066 UT) Oral for 29 Active Phenytoin Sodium Extended 100 MG Oral for 28 Not-Taking Ciclopirox Olamine 0.77 % 1 application Externally Twice a day for 30 days Active Folic Acid 1 MG Oral for 28 Ac tive Fiber-Lax 625 MG Oral for 28 N ot-Taking Senna 8.6 MG Oral for 28 Activ e Ammonium Lactate 12 % 1 application Exte rnally to affected areas of dry skin to feet except for between the toes Twice a day for 30 days Active tiZANidine HCl 4 MG Oral for 28 Active Social History Tobacco Use: Social History Observation Description Date Details (start date - stop date) Current Smoker NA - NA Tobacco use other than smoking: Question Answer Notes Are you an other tobacco user? No Tobacco Control (Standard) Question Answer Notes Tobacco use: Current smoker How often do you smoke cigarettes? Every day How many cigarettes a day do you smoke? 11-20 How soon after you wake up d o you smoke your first cigarette? 6-30 minutes Are you interested in quitting? Thinking about q uitting Additional Findings: Tobacco user Heavy cigarett e smoker (20-39 cigs/day) AUDIT-C (Standard) Question Answer Notes Did you have a drink containing alcohol in the p ast year? No Points 0 Interpretation Negative Problems Problem Type SNOMED Code ICD Code Onset Dates Problem Status W/U Status Risk Notes Problem Ulcer of toe of left foot (disorder) ([id number]) Skin ulcer of toe of left foot, limited to breakdown of skin (L97.521) Active confirmed Nonapplicable Vital Signs Heart Rate 90 /min 06/11/2024 Blood pressure diastolic 79 mm Hg 06/11/2024 Height 5ft 7in in 06/11/2024 Blood pressure systolic 128 mm Hg 06/11/2024 Weight 135 lbs 06/11/2024 BMI 21.14 kg/m2 06/11/2024 Procedures Procedure Date Ordered Date Performed Result Body Sit e 55259- Debride <25 sq cm 07/18/2023 N/A [id number] NAIL, 6 OR MORE 06/11/2024 N/A Encounters Encounter Location Date [facility] [address] [place] [address] 07/05/2023 Apurva Black Tinea unguium B35.1 ; Pain in right toe(s) M79.674 ; Pain in left toe(s) M79.675 ; Tinea pedis of both feet B35.3 and Ingrown nail L60.0 [facility] [address] [place] [address] 07/18/2023 Apurva Black Tinea unguium B35.1 ; Tinea pedis of both feet B35.3 and Skin ulcer of toe of left foot, limited to breakdown of skin L97.[address] [address] 11/04/2023 Apurva Black Tinea unguium B35.[address] [address] 02/06/2024 Apurva Black Tinea unguium B35.1 ; Pain in right toe(s) M79.674 and Pain in left toe(s) M79.[address] [address] 06/11/2024 Apurva Black Tinea unguium B35.1 ; Pain in right toe(s) M79.674 ; Pain in left toe(s) M79.675 and Xerosis of skin L85.[address] [address] 07/03/2023 Kavitha Matos [address] [address] 07/08/2023 Apurva Black [address] [address] 09/04/2023 Apurva Black Assessments Encounter Date Diagnosis (ICD Code) Assessment Notes Treatment Notes Treatment Clinical Notes Section Notes 07/05/2023 Tinea unguium (ICD-10 - B35.1) 07/05/2023 Pain in right toe(s) (ICD-10 - M79.674) 07/18/2023 Tinea unguium (ICD-10 - B35.1) 07/18/2023 Tinea pedis of both feet (ICD-10 - B35.3) 11/04/2023 Tinea unguium (ICD-10 - B35.1) 02/06/2024 Tinea unguium (ICD-10 - B35.1) 02/06/2024 Pain in right toe(s) (ICD-10 - M79.674) 06/11/2024 Tinea unguium (ICD-10 - B35.1) 06/11/2024 Pain in right toe(s) (ICD-10 - M79.674) 02/06/2024 Pain in left toe(s) (ICD-10 - M79.675) 07/18/2023 Skin ulcer of toe of left foot, limited to breakdown of skin (ICD-10 - L97.521) Nonapplicable Patient Educated with: WOUND CARE INSTRUCTIONS.p df (WOUND CARE INSTRUCTIONS.p df) 07/05/2023 Pain in left toe(s) (ICD-10 - M79.675) 06/11/2024 Pain in left toe(s) (ICD-10 - M79.675) 07/05/2023 Tinea pedis of both feet (ICD-10 - B35.3) 06/11/2024 Xerosis of skin (ICD-10 - L85.3) 07/05/2023 Ingrown nail (ICD-10 - L60.0) 11/04/2023 Other Patient Educated with: WOUND CARE INSTRUCTIONS.p df (WOUND CARE INSTRUCTIONS.p df) 02/06/2024 Other Plan Of Treatment Pending Test Test Name Order Date *Liver Function Test (LFT) 07/05/2023 *Liver Function Test (LFT) 11/04/2023 *Liver Function Test (LFT) 02/06/2024 [id number] NAIL, 6 OR MORE 06/11/2024 97326- Debride <25 sq cm 07/18/2023 Next Appt Details Provider Name:Apurva Valenzuela , 10/08/2024 02:30:00 PM, [address] [place], [address], Insurance Providers Payer Name Payer Address Payer Phone Subscriber Number Group Number Insured Name Patient Relationship to Insured Coverage Start Date Coverage End Date [facility] [employer] Claims [address] [place] [id number] Carlito Ewing Self - patient is the insured Medical (General) History Medical History History ICD Code Epilepsy Chicken pox Bone implants/screws Surgical History Surgery Date(Month/Year) vns replace battery 04/13
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
[2024-06-15 12:25] VITALS: BP 132/80; PULSE 80; TEMP 36.6; O2SAT 96; BMI 19.8
== END 2024-06-15 12:46 | disposition home or self-care (01) ==
PROVIDERS: PCP Internal Medicine; Visit Provider Nurse Practitioner Family
DX: H10.9 Unspecified conjunctivitis (principal)

== ENCOUNTER → 2024-06-15 10:16 | Outpatient (BNVA) | payer OTHER, SELFPAY | PROVIDERS: PCP Internal Medicine | DX: H10.9 Unspecified conjunctivitis (principal) | CPT/HCPCS: 99212 ==

== ENCOUNTER 2024-07-06 11:00 | Outpatient (REF) | payer OTHER, SELFPAY ==
[2024-07-06 13:10] LABS: Phenytoin Dilantin 13.3 ug/mL (10.0-20.0)
[2024-07-06 13:14] LABS: Alanine Aminotransferase 32 U/L (0-40); Albumin Level 4.6 g/dL (3.5-5.0); Alkaline Phosphatase 98 U/L (39-117); Aspartate Amino Transferase 20 U/L (5-37); Bilirubin Direct < 0.2 mg/dL (0.0-0.5); Bilirubin Total 0.2 mg/dL (0.0-1.0); Total Protein 8.2 g/dL (6.5-8.0)
== END 2024-07-06 11:01 | disposition home or self-care (01) ==
LOC: HO.LAB 11:00
PROVIDERS: Absent Provider Internal Medicine; PCP Internal Medicine; Visit Provider Psychiatry & Neurology Neurology
DX: G40.909 Epilepsy, unspecified, not intractable, without status epilepticus (principal)
CPT/HCPCS: 36415; 80076; 80185

== ENCOUNTER 2024-07-28 12:32 | Outpatient (AMB) | payer OTHER, SELFPAY ==
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
[2024-07-28 12:38] VITALS: BP 110/86; PULSE 67; O2SAT 96; BMI 19.6
--- OUTSIDE RECORDS SUMMARY | 2024-07-28 15:08 | XMS_ITS ---
Author Organization [facility] [place] Address [address] [place] [address] Care Team Providers Care At Risk Specialist Name Role Phone Rui Black MDneth Primary Care Provider Anurag carranza Reshma Valenzuelae Unavailable [phone] Allergies No Known Allergies REASON FOR VISIT [...] Activ e Vitamin D (Ergocalciferol) 1.25 MG (50775 UT) Oral for 29 Active tiZANidine HCl [...] 11/04/2023 Encounters Encounter Location Date Provider Diagnosis [facility] [address] [address] 11/04/2023 Apurva Valenzuela Tinea unguium B35.1 Assessments [...] Provider Name:Apurva Valenzuela , 10/08/2024 02:30:00 PM, [address] [place] [address], [phone], Progress Notes * EMILYCarlito BAILEYDOB: [birth year] (53 yo M)Acc No.[id number]:11/04/2023 Progress Note Patient:?Carlito Ewing Provider:?Apurva Valenzuela DPM :1970???Age:53 Y???Sex:Male Eduard e:11/04/2023 Address:[address] [place] [address], [place] [id number] Pcp:Aquilino Black MD Subjective: * Chief Complaints: [...] Exercise. ?Marital status: single. ?Occupation: Works at [employer].. * Medications:?TakingProbiotic - Tablet Chewable as directed Orally Fiber-Lax 625 MG Tablet Oral Folic Acid 1 MG Tablet Oral Lacosamide 150 MG Tablet Oral Phenytoin Sodium Extended 100 MG Capsule Oral Senna 8.6 MG Tablet Oral Sertraline HCl 100 MG Tablet Oral tiZANidine HCl 4 MG Tablet 1 tablet as needed Oral Three times a dayVitamin D (Ergocalciferol) 1.25 MG (51336 UT) Capsule Oral Linzess 290 MCG Capsule [...] a dayTaking Vitamin D (Ergocalciferol) 1.25 MG (92400 UT) Capsule Oral Taking Linzess 290 MCG [...] * Provider:?Apurva Valenzuela DPM Date:?2023 Generated for Charliei jg/Dawn/Sofiya on:?07/28/2024 03:07 PM EDT History and Physical Notes * HPI (History [...]
--- OUTSIDE RECORDS SUMMARY | 2024-07-28 15:08 | XMS_ITS ---
Author Organization [facility] [place] Address [address] [place] [address] Care Team Providers Care Manager Tax Name Role Phone Wayne MENDOZA, Aquilino Primary Care Provider Anurag carranza Reshma Valenzuelae Unavailable [phone] Allergies No Known Allergies REASON FOR VISIT Painful nail(s) aggrevated by shoes causing difficulty standing/walking, Skin problem(s) Medications Medication SIG (Take, Route, Frequency, Duration) Notes Start Date End Date Status Linzess 290 MCG Oral for 30 Ac tive Probiotic Active Ciclopirox Olamine 0.77 % 1 application Externally Twice a day for 30 days Active Senna 8.6 MG Oral for 28 Activ e tiZANidine HCl 4 MG Oral for 28 Active Lacosamide 150 MG 1 tablet Orally Twic e a day Active Dilantin 100 MG 2 capsules Orally qd Active Fiber-Lax 625 MG Oral for 28 A ctive Sertraline HCl 100 MG Oral for 28 Active Vitamin D (Ergocalciferol) 1.25 MG (71399 UT) Oral for 29 Active Dilantin 30 MG Oral for 28 Not -Taking Terbinafine HCl 250 MG 1 tablet Orally O nce a day for 7 days days then stop for 3 weeks repeat cycle for 90 days 07/08/2023 Not-Taking Linzess 290 MCG Oral for 30 No t-Taking Folic Acid 1 MG Oral for 28 Ac tive Ammonium Lactate 12 % 1 application Exte rnally to affected areas of dry skin to feet except for between the toes Twice a day for 30 days Active tiZANidine HCl 4 MG 1 tablet as needed O ral Three times a day Not-Taking Senna 8.6 MG Oral for 28 Not-T aking Lacosamide 150 MG Oral for 28 Not-Taking Phenytoin Sodium Extended 100 MG Oral for 28 Not-Taking Fiber-Lax 625 MG Oral for 28 N ot-Taking Social History Tobacco Use: Social History Observation [...] ast year? No Points 0 Interpretation Negative Vital Signs Height 5ft 7in in 06/11/2024 Weight 135 lbs 06/11/2024 BMI 21.14 kg/m2 06/11/2024 Blood pressure systolic 128 mm Hg 06/11/19 25 Blood pressure diastolic 79 mm Hg 025 Heart Rate 90 /min 06/11/2024 Procedures Procedure Date Ordered Date Performed Result Body Sit e 38290-WBIONUL NAIL, 6 OR MORE 06/11/2024 N/A Encounters Encounter Location Date Provider Diagnosis [facility] [address] [place] [address] 06/11/2024 Apurva Black Tinea unguium B35.1 ; Pain in right toe(s) M79.674 ; Pain in left toe(s) M79.675 and Xerosis of skin L85.3 Assessments Encounter Date Diagnosis (ICD Code) Assessment Notes Treatment Notes Treatment Clinical Notes Section Notes 06/11/2024 Tinea unguium (ICD-10 - B35.1) 06/11/2024 Pain in right toe(s) (ICD-10 - M79.674) 06/11/2024 Pain in left toe(s) (ICD-10 - M79.675) 06/11/2024 Xerosis of skin (ICD-10 - L85.3) Plan Of Treatment Medication Medication Name Sig Start Date Stop Date Notes Ammonium Lactate 12 % 1 application Exte rnally to affected areas of dry skin to feet except for between the toes Twice a day for 30 days Pending Test Test Name Order Date [id number] NAIL, 6 OR MORE 06/11/2024 Next Appt Details Follow Up: as scheduled, Dahiana son: Provider Name:Apurva Valenzuela , 10/08/2024 02:30:00 PM, [address] [place] [address], [phone], Procedure Notes * Category Sub-Category Detail Notes Debride Nail 6-10 Nail debridement Due to the cl inical pathology outlined in the exam findings, performance of this nail treatment is medically necessary as its management by an unskilled/untrained nonprofessional would put this patients foot and overall health at risk. Therefore, debridement to affected nail(s), as described in exam (TA, T1, T2, T3, T4, T5, T6, T7, T8, T9, ), was performed exclusively by the physician of record to reduce/remove overall nail length, girth, thickness, subungual debris, and necrotic tissue, by manual and/or electrical means through the use of a nail nipper and/or dremel-type cutter grinder, to a more viable healthy nail plate or bed tissue 6-10 nails in total. Silver nitrate was used for any petechial bleeding as necessary. Definitive antifungal treatment options, both pharmaceutical and surgical, have been reviewed and discussed with the patient. The patient solely prefers the use of intermittent/as needed professional debridement services for their nail condition and understands the need for additional periodic treatments to maintain effectiveness in symptomatic relief - Progress Notes * Carlito EWINGDOB: [birth year] (53 yo M)Acc No.[id number]:06/11/2024 Progress Note Patient:?Carlito EWING Provider:?Apurva Valenzuela DPM :1970???Age:53 Y???Sex:Male Eduard e:06/11/2024 Address:[address] [place] [address], [id number] Pcp:Aquilino Black MD Subjective: * Chief Complaints: * ???Painful nail(s) aggrevate d by shoes causing difficulty standing/walkingSkin problem(s) * HPI: ???Painful Nails:?Pt States Last PCP Visit:?Date:?01/15/2024 ?Treatments:?Pulse Dose PO Antifungal Treatment ,, was not successful.?Skin problems:?Nature:?dryness , scaling.?Location:?B/L .?Duration:?, several months.?Course:?, worse.? * ROS:?General/Constitutional:?Nausea?denies.?Vomiting?denies.?Hunger Thirst?denies.?Loss appetite?denies.?Chills?denies.?Fatigue?denies.?Fever?denies.?Night Sweats?denies.?Unexplained weight loss?denies.?Unexplained weight gain?denies.?HEENTM:?Dentures?denies.?Dizziness?denies.?Glasses/contacts?admits.?Retinopathy?de nies.?Blurred/double vision?denies.?TMJ?denies.?Discharge/drainage?denies.?Implants?denies.?Sore throat?denies.?Dental implants?denies.?Hard of hearing ?denies.?Difficulty chewing/swallowing/speaking?denies.?Nose bleeds?denies.?Sore mouth?denies.?Respiratory:?On Oxygen?denies.?Pneumonia/pleurisy?denies.?Bronchitis?denies.?Emphysema?denies.?C oughing?denies.?Cough blood?denies.?Shortness of breath?denies.?Wheezing?denies.?Cardiovascular:?Pacemaker?denies.?MVP?denies.?WPW?denies.?CHF?denies.?Heart attack?denies.?Septal defect?denies.?Rapid beat?denies.?Chest pain ?denies.?Atrial Fib.?denies.?Murmur/Palpitations?denies.?Gastrointestinal:?Hemorrhoids?denies.?Stomach/Abdominal pain?denies.?Dark blood stool?denies.?Irritable bowel ?denies.?Constipation?denies.?Diarrhea?denies.?Hematology:?Swelling?denies.?Clots?denies.?Varicose Veins?denies.?Bruising?denies.?Bleeding problem?denies.?Genitourinary:?Blood urine?denies.?Frequent/Painfu/urination/bladder control?denies.?Kidney stones?denies.?Infection (UTI)?denies.?Nephropathy?denies.?sex trans dis (STD)?denies.?Prostate?denies.?Musculoskeletal:?Hammertoes?denies.?Bunions?denies.?Back Pain?denies.?Muscle Cramps/ Resting?denies.?Muscle cramps / walking?denies.?Generalized aches and pains?denies.?Weakness?denies.?Integ.:?Kim?denies.?Scars?denies.?Corns/calluses?denies.?Ingrown nails?denies.?Painful nails?denies.?Open Sores?denies.?Rashes?denies.?Neurologic:?Difficulty sleeping?denies.?Brain disorder?denies.?Numbness?denies.?Balance trouble?denies.?Confusion?denies.?Fainting/blackouts?denies.?Tingling?denies.?Tr emors?denies.? * Medical History:? * Surgical History:?vns replac e battery 04/13 * Hospitalization/Major Diagno stic Procedure:?Denies Past Hospitalization * Family History:?Mother: dece ased, diagnosed with Unspecified essential hypertension, Unspecified heart disease, Unspecified cerebral artery occlusion with cerebral infarction.?Father: , diagnosed with Other malignant neoplasm of unspecified site, Unspecified essential hypertension.?Siblings: diagnosed with Unspecified cerebral artery occlusion with cerebral infarction.? * Social History:?Tobacco Use:?Tobacco use other than smoking?Are you an other tobacco user??No ?Tobacco Control (Standard)?Tobacco use:?Current smoker ?How often do you smoke cigarettes??Every day ?How many cigarettes a day do you smoke??11-20 ?How soon after you wake up do you smoke your first cigarette??6-30 minutes ?Are you interested in quitting??Thinking about quitting ?Additional Findings: Tobacco user?Heavy cigarette smoker (20-39 cigs/day) ???Drugs/Alcohol:?Drugs?Have you used drugs other than those for medical reasons in the past 12 months??No ???Miscellaneous:?Caffeine: yes, frequency:, 2-3 cups per day. ?Children: no. ?Exercise: no. ?Marital status: single. ?Occupation: Works at [employer].. ???Drug/Alcohol:?AUDIT-C (Standard)?Did you have a drink containing alcohol in the past year??No ?Points?0 ?Interpretation?Negative * Medications:?TakingFolic Aci d 1 MG Tablet Oral Sertraline HCl 100 MG Tablet Oral Vitamin D (Ergocalciferol) 1.25 MG (94682 UT) Capsule Oral Dilantin 100 MG Capsule 2 capsules Orally qd Fiber-Lax 625 MG Tablet Oral Lacosamide 150 MG Tablet 1 tablet Orally Twice a day Linzess 290 MCG Capsule Oral Probiotic Senna 8.6 MG Tablet Oral tiZANidine HCl 4 MG Tablet Oral Ciclopirox Olamine 0.77 % Cream 1 application Externally Twice a day Taking Folic Acid 1 MG Tablet Oral Taking Sertraline HCl 100 MG Tablet Oral Taking Vitamin D (Ergocalciferol) 1.25 MG (40017 UT) Capsule Oral Taking Dilantin 100 MG [...] the patientNot-Taking/PRN Fiber-Lax 625 MG Tablet Oral Not- Taking/PRN Lacosamide 150 MG Tablet Oral Not-Taking/PRN Phenytoin [...] * Allergies:?N.K.D.A.yes[Aller gies Verified] Objective: * Vitals:?Ht: 5ft 7in, Wt:135, BMI:21.14, Shoe size: 9, BP:128/79mm Hg, HR:90/min, Ht-cm: 170.18 cm, Wt-k.24 kg. * Examination: ???General Examination: ?GENERAL APPEARANCE:?Reveals [...] nor excrescences. The interspaces are clear, B/L , Skin shows sign(s) of, dryness, scaling, in a stocking fashion, no fissure(s) present, B/L.?Nails: ?NAILS are:?Elongated, overgrown, dystrophic, lytic, greater than 3mm thick, discolored and friable with crumbly malodorous subungual debris, with pain on palpation ,TA, T1, T2, T3, T4, T5, T6, T7, T8, T9,?.? Assessment: * Assessment: 1.?Tinea unguium - B35.1 (Pr imary)???2.?Pain in right toe(s) - M79.674???3.?Pain in left toe(s) - M79.675???4.?Xerosis of skin - L85.3???Specify :Acute problem, Uncomplicated (3),Rx Management (4)??? Plan: * Treatment: 2.?Xerosis of skin? Start Ammonium Lactate Cream, 12 %, 1 application, Externally to affected areas of dry skin to feet except for between the toes, Twice a day, 30 days, 280, Refills 3.?? * Procedures:?Debride Nail 6-10:?Nail debridement?Due to the clinical pathology outlined in the exam findings, performance of this nail treatment is medically necessary as its management by an unskilled/untrained nonprofessional would put this patients foot and overall health at risk. Therefore, debridement to affected nail(s), as described in exam (TA, T1, T2, T3, T4, T5, T6, T7, T8, T9, ), was performed exclusively by the physician of record to reduce/remove overall nail length, girth, thickness, subungual debris, and necrotic tissue, by manual and/or electrical means through the use of a nail nipper and/or dremel-type cutter grinder, to a more viable healthy nail plate or bed tissue 6- 10 nails in total. Silver nitrate was used for any petechial bleeding as necessary. Definitive antifungal treatment options, both pharmaceutical and surgical, have been reviewed and discussed with the patient. The patient solely prefers the use of intermittent/as needed professional debridement services for their nail condition and understands the need for additional periodic treatments to maintain effectiveness in symptomatic relief - 67861.? * Procedure Codes:?86910 DEBRI DE NAIL, 6 OR MORE, Modifiers: XS * Preventive Medicine:? ??Counseling:?Tobacco use:?Type of Tobacco Use Cessation Counseling provided?Smoking cessation education ?Patient counseled on the dangers of smoking and urged to quit:?06/11/2024 ?Discussion:?-13: Office or other outpatient visit for [...] have encouraged the patient to call the office.?Xerosis:?The patient was counseled on the diagnosis, potential etiologies, and treatment options for their skin condition. We discussed the risks and benefits of each option from performing no treatment, to utilizing OTC topical skin creams/ointments, to utilizing prescription topical creams/ointments, to utilizing customized compounded topical medications and use of nocturnal occlusion with any/all previously detailed therapies. We discussed the advantages and disadvantages of each possible treatment and importance for adherence to all the recommended therapies for optimum success and avoid potential complications such as open sore/infection/possible hospitalization. We discussed the potential effectiveness of each topical preparation as well as each ones possible side effects and/or patient medication interactions. Patient questions re: use, dosage, successful outcomes, and application consistency were reviewed and the patient verbalized that all answers were clearly understood. The patient has decided to apply Rx skin creams to their feet save the interspaces while paying special attention to the heels. Such was sent to their pharmacy at the time of visit.? * Follow Up:?as scheduled * Images: * Sign off status: Completed true * Provider:?Apurva Valenzuela DPM Date:?2024 Generated for Toni gregorio/Dawn/Sofiya on:?07/28/2024 03:08 PM EDT History and Physical Notes * HPI (History of Present Illness) Category Sub-Category Detail Notes Category Not es Painful Nails Treatments: Pulse Dose PO An tifungal Treatment ,, was not successful Pt States Last PCP Visit: Date:: 01/15/2024 Skin problems Nature: dryness , scaling Location: B/L Duration: , several months Course: , worse Examination Category Sub-Category Detail Notes Category Not es Dermatologic SKIN FINDINGS: Skin exam reveal s normal color, texture, elasticity, and turgor. There are no masses, nor excrescences. The interspaces are clear, B/L , Skin shows sign(s) of, dryness, scaling, in a stocking fashion, no fissure(s) present, B/L ULCER: General Examination GENERAL APPEARANCE: Reveals [...] malodorous subungual debris, with pain on palpation ,TA, T1, T2, T3, T4, T5, T6, T7, T8, T9,
--- OUTSIDE RECORDS SUMMARY | 2024-07-28 15:08 | XMS_ITS | Patient Health Record ---
Author Organization [facility] [place] Address [address] [facility] [place] [address] Care Team Providers Care Eyeglass Cutter Name Role Phone Vu Black MDh Primary Care Provider Anurag ValenzuelaApurva Unavailable [phone] VeraKavitha westbrook Unavailable [phone] Allergies No Known Allergies Reason For Referral [...] 28 Not-Taking Vitamin D (Ergocalciferol) 1.25 MG (30440 UT) Oral for 29 Active Phenytoin Sodium [...] Ulcer of toe of left foot (disorder) (278355042 [id number]) Skin ulcer of toe of left foot, limited to breakdown of skin (L97.521) Active confirmed Nonapplicable Vital Signs Heart Rate 90 /min 06/11/2024 Blood pressure diastolic 79 mm Hg 06/11/2024 Height 5ft 7in in 06/11/2024 Blood pressure systolic 128 mm Hg 06/11/2024 Weight 135 lbs 06/11/2024 BMI 21.14 kg/m2 06/11/2024 Procedures Procedure Date Ordered Date Performed Result Body Sit e 63268-KQFTNXB NAIL, 6 OR MORE 06/11/2024 N/A Encounters Encounter Location Date Provider Diagnosis [facility] [address] [address] 11/04/2023 Apurva Black Tinea unguium B35.[address] [facility] [address] 02/06/2024 Apurva Black Tinea unguium B35.1 ; Pain in right toe(s) M79.674 and Pain in left toe(s) M79.[address] [facility] [address] 06/11/2024 Apurva Black Tinea unguium B35.1 ; Pain in right toe(s) M79.674 ; Pain in left toe(s) M79.675 and Xerosis of skin L85.3 [facility] [place] [address] [place] [address] 09/04/2023 Apurva Valenzuela Assessments Encounter Date Diagnosis (ICD Code) Assessment Notes Treatment Notes Treatment Clinical Notes Section Notes 11/04/2023 Tinea unguium (ICD-10 - B35.1) 02/06/2024 Tinea unguium (ICD-10 - B35.1) 02/06/2024 Pain in right toe(s) (ICD-10 - M79.674) 06/11/2024 Tinea unguium (ICD-10 - B35.1) 06/11/2024 Pain in right toe(s) (ICD-10 - M79.674) 02/06/2024 Pain in left toe(s) (ICD-10 - M79.675) 06/11/2024 Pain in left toe(s) (ICD-10 - M79.675) 06/11/2024 Xerosis of skin (ICD-10 - L85.3) 11/04/2023 Other Patient Educated with: WOUND CARE INSTRUCTIONS.p df (WOUND CARE INSTRUCTIONS.p df) 02/06/2024 Other Plan Of Treatment Pending Test Test Name Order Date *Liver Function Test (LFT) 07/05/2023 *Liver Function Test (LFT) 11/04/2023 *Liver Function Test (LFT) 02/06/2024 [id number] NAIL, 6 OR MORE 06/11/2024 01970- Debride <25 sq cm 07/18/2023 Next Appt Details Provider Name:Apurva Valenzuela , 10/08/2024 02:30:00 PM, [address] [place], [address], Insurance Providers Payer Name Payer Address Payer Phone Subscriber Number Group Number Insured Name Patient Relationship to Insured Coverage Start Date Coverage End Date [facility] [employer] Claims [address] [place] [id number] [phone] [id number] Carlito Ewing Self - patient is the insured Medical (General) History Medical History History ICD Code Epilepsy Chicken pox Bone implants/screws Surgical History Surgery Date(Month/Year) vns replace battery 04/13
--- OUTSIDE RECORDS SUMMARY | 2024-07-28 15:08 | XMS_ITS ---
Author Organization [facility] [place] Address [address] [facility] [place] [address] Care Team Providers Care Mechanical Lead Name Role Phone Wayne MENDOZA, [place] Primary Care Provider Anurag ValenzuelaReshmae Unavailable [phone] Allergies No Known Allergies REASON FOR VISIT [...] Probiotic Active Vitamin D (Ergocalciferol) 1.25 MG (95086 UT) Oral for 29 Active Linzess 290 [...] 024 Encounters Encounter Location Date Provider Diagnosis [facility] [place] [address] [place] [address] 02/06/2024 Apurva Valenzuela Tinea unguium B35.1 ; [...] Name:Apurva Valenzuela , 10/08/2024 02:30:00 PM, [address] [place], [address], Progress Notes * ARSENIOCarlito COYLEDOB: [birth year] (53 yo M)Acc No.[id number]:02/06/2024 Progress Note Patient:Carlito CASAS Provider:?Apurva Valenzuela DPM :1970???Age:53 Y???Sex:Male Eduard e:02/06/2024 Address:[address] [place] [address], [phone] Pcp:Aquilino Black MD Subjective: * Chief Complaints: [...] no. ?Marital status: single. ?Occupation: Works at [employer].. * Medications:?TakingProbiotic - Tablet Chewable as directed Orally Folic Acid 1 MG Tablet Oral Sertraline HCl 100 MG Tablet Oral Vitamin D (Ergocalciferol) 1.25 MG (15080 UT) Capsule Oral Dilantin 100 MG Capsule [...] Oral Taking Vitamin D (Ergocalciferol) 1.25 MG (21513 UT) Capsule Oral Taking Dilantin 100 MG [...] Valenzuela DPM Date:?2023 Generated for Toni gregorio/Dawn/Kettyitting on:?07/28/2024 03:08 PM EDT History and Physical [...]
== END 2024-07-28 13:06 | disposition home or self-care (01) ==
LOC: HO.HMCH 12:33
PROVIDERS: PCP Internal Medicine; Visit Provider Internal Medicine
DX: G40.909 Epilepsy, unspecified, not intractable, without status epilepticus (principal); S06.9X9S Unspecified intracranial injury with loss of consciousness of unspecified duration, sequela; G81.14 Spastic hemiplegia affecting left nondominant side; F33.1 Major depressive disorder, recurrent, moderate; K59.09 Other constipation; E78.5 Hyperlipidemia, unspecified; F17.200 Nicotine dependence, unspecified, uncomplicated

== ENCOUNTER → 2024-07-28 12:32 | Outpatient (BNVA) | payer OTHER, SELFPAY | PROVIDERS: PCP Internal Medicine; Visit Provider Internal Medicine | DX: G40.909 Epilepsy, unspecified, not intractable, without status epilepticus (principal); S06.9X9S Unspecified intracranial injury with loss of consciousness of unspecified duration, sequela; G81.14 Spastic hemiplegia affecting left nondominant side; K59.09 Other constipation; E78.5 Hyperlipidemia, unspecified; F33.1 Major depressive disorder, recurrent, moderate; D64.9 Anemia, unspecified; E78.00 Pure hypercholesterolemia, unspecified; R30.0 Dysuria; E53.8 Deficiency of other specified B group vitamins; E55.9 Vitamin D deficiency, unspecified; F17.210 Nicotine dependence, cigarettes, uncomplicated; X58.XXXS Exposure to other specified factors, sequela | CPT/HCPCS: 96127; 99212 ==

== ENCOUNTER 2024-09-11 08:07 | Emergency (ER) | payer OTHER, SELFPAY ==
[2024-09-11] VITALS (11 sets, daily range): BP systolic 106–167; BP diastolic 70–107; PULSE 59–83; RESP 14–18; TEMP 36–37; O2SAT 89–100; BMI 22.3
--- NOTE | ~2024-09-11 | XR_ITS ---
EXAMINATION: XR CHEST CLINICAL INFORMATION: seizure COMPARISON: September 26, 2022. TECHNIQUE: Frontal view of the chest was obtained. FINDINGS: Hyperinflated lungs. No consolidation, pleural fissure pneumothorax. Cardiomediastinal silhouette size is normal. The patient is rotated to the right. There is stimulator device overlapping the left hemithorax with the wires towards the left neck. XR/XR chest 1V IMPRESSION: Hyperinflated lungs without acute airspace disease. Electronically signed by: Harinder Lindsey MD 09/11/2024 10:01 AM EDT
--- NOTE | ~2024-09-11 | CT_ITS ---
EXAMINATION: CT HEAD WITHOUT CONTRAST CLINICAL INFORMATION: Breakthrough seizure. COMPARISON: 04/30/2023. 03/20/2023 TECHNIQUE: Contiguous axial imaging was performed from the skull base to vertex without intravenous administration of contrast. This CT examination was performed using dose optimization techniques as appropriate, variously including the following: *Automated exposure control *Adjustment of mA and/or kV according to patient size (this includes techniques or standardized protocols for targeted exams where dose is matched to indication/reason for exam; i.e. extremities or head) *Use of iterative reconstruction technique FINDINGS: There is redemonstration of marked ex vacuo dilatation of the right lateral ventricle with considerable right frontoparietal encephalomalacia, and marked localized sulcal prominence. There is generalized cerebral volume loss, with prominence of the remainder of the ventricular system and mild sulcal prominence again evident. There is no evidence of intracranial hemorrhage or extra-axial fluid collection. There is no mass effect, or edema. No CT evidence of acute territorial infarct. There is no midline shift. There is no hydrocephalus. Negative hyperdense MCA sign. Negative insular ribbon sign. There are similar pachymeningeal calcifications. Similar patchy periventricular and deep white matter hypoattenuation is consistent with mild small vessel ischemic changes. Normal pituitary. Globes and orbital contents image normally. No extracranial soft tissue abnormalities. The paranasal sinuses, mastoid air cells, and tympanic cavities are normally aerated. Minimal mucosal thickening left maxillary antrum. No suspicious bony abnormalities. There are no acute fractures evident. Remote right pterional craniotomy likely present. Remote right frontal marianna hole. CT/CT head/brain wo IV con IMPRESSION: 1. No acute intracranial abnormality. No change from the 04/30/2023. 2. Stable chronic changes changes of right frontoparietal volume loss and encephalomalacia, with ex-vacuo dilatation of the right lateral ventricle. Electronically signed by: Oni Magallon MD 09/11/2024 11:35 AM EDT
--- NOTE | 2024-09-11 08:24 | ECG_ITS ---
Test Reason : seizure Blood Pressure : */* mmHG Vent. Rate : 65 BPM Atrial Rate : 65 BPM P-R Int : 158 ms QRS Dur : 102 ms QT Int : 420 ms P-R-T Axes : 71 92 72 degrees QTcB Int : 436 ms Normal sinus rhythm Possible Left atrial enlargement Rightward axis Minimal voltage criteria for LVH, may be normal variant ( [place] product ) ST elevation, consider early repolarization, pericarditis, or injury Abnormal ECG When compared with ECG of 20-Feb-2024 09:59, No significant change was found Referred By: Generic ED Physician Electronically Signed By: Steven Mcmullen
[2024-09-11 08:36] LABS: Glucose, Whole Blood 111 mg/dL (60-115)
[2024-09-11 08:40] LABS: MANUAL DIFF FLAG NO
[2024-09-11 08:42] LABS: Basophils Absolute Auto 0.1 X10*3/uL (0.0-0.2); Basophils Percent Auto 0.6 % (0-2); Eosinophils Absolute Auto 0.9 X10*3/uL (0.0-0.4); Eosinophils Percent Auto 8.7 % (0-4); Hematocrit 46.1 % (42.0-52.0); Hemoglobin 16.2 g/dl (14.0-18.0); Imm Gran Abs Auto 0.03 X10*3/uL (0.00-0.03); Imm Gran Pct Auto 0.3 % (0.0-0.4); Lymphocytes Percent Auto 37.6 % (20-40); Mean Corpuscular HGB Conc 35.1 g/dl (31.0-36.0); Mean Corpuscular Hemoglobin 31.6 pg (27.0-33.0); Mean Corpuscular Volume 89.9 fL (80.0-98.0); Mean Platelet Volume 10.3 fL (9.4-12.4); Monocytes Absolute Auto 0.9 X10*3/uL (0.1-1.2); Monocytes Percent Auto 8.2 % (2-11); Neutrophils Absolute Auto 4.7 x10*3/uL (2.0-8.3); Neutrophils Percent Auto 44.6 % (45-73); Platelet Count 304 X10*3/uL (160-400); Red Blood Count 5.13 X10*6/uL (4.60-5.80); Red Cell Distribution Width 13.6 % (11.0-16.0); White Blood Count 10.6 X10*3/uL (4.8-10.8)
[2024-09-11 09:01] LABS: Alanine Aminotransferase 22 U/L (0-40); Albumin Level 4.3 g/dL (3.5-5.0); Alkaline Phosphatase 89 U/L (39-117); Anion Gap 13 (12-20); Aspartate Amino Transferase 30 U/L (5-37); Bilirubin Total 0.2 mg/dL (0.0-1.0); Blood Urea Nitrogen 10 mg/dL (9-16); Calcium 9.1 mg/dL (8.4-10.2); Carbon Dioxide 22 mmol/L (22-29); Chloride 109 mmol/L (96-108); Creatinine Clr Calc Pharmacy 113.7; Estimated Glomerular Filt Rate > 60; Ethanol < 10 mg/dL; Glucose Random 124 mg/dL (60-115); Potassium 4.1 mmol/L (3.3-5.1); Sodium 140 mmol/L (135-145); Total Protein 7.4 g/dL (6.5-8.0)
--- NOTE | 2024-09-11 09:15 | ED_ITS ---
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 acid 1 mg tablet 1 mg PO DAILY 90 Days Qty: 90 3RF sennosides [Natural Senna Laxative] 8.6 mg tablet 17.2 mg PO BEDTIME 90 Days Qty: 180 3RF sertraline 100 mg tablet 100 mg PO BEDTIME 90 Days Qty: 90 0RF ergocalciferol (vitamin D2) 1,250 mcg (50,000 unit) capsule 1,250 mcg PO QWEEK 90 Days Qty: 13 0RF tizanidine 4 mg tablet 4 mg PO Q8H calcium polycarbophil [Fiber (calcium polycarbophil)] 625 mg tablet 625 mg PO DAILY Linzess 290 mcg capsule 290 mcg PO DAILY Qty: 90 3RF phenytoin sodium extended 100 mg capsule 200 mg PO BID lacosamide 150 mg tablet 300 mg PO BID Referrals: [facility] [Outside] Aquilino Black MD [Primary Care Provider] - Pebbles Horan MD [Physician] - Interventions: ED Discharge Assessment Last Done: 09/15/24 13:46 Discharge Date/Time: 09/15/24 13:47 Print Language: Malay
[2024-09-11] MEDS: levETIRAcetam in NaCl (iso-os) 1,000 MG/100 ML PIGGYBACK 400 MG IV (09:53)
--- NOTE | 2024-09-11 10:04 | PC.NURSE ---
Pt is more alert, statng needs, following commands.
--- NOTE | 2024-09-11 10:35 | PC.NURSE ---
Pt is now AxOx3. Sister on phone. Seems that meds were not taken as ordred in last 48 hrs. It's unclear if too much or too little was taken. Per Sister Dalila ([phone]) SZ this morning was full body thrashing lasting almost 20 min). normal sz is quiet, gazing to left last ing aprox 5 min. Pt usually [employer] man't remember sz but remembers today. Last sz was last wed at [facility] [place] with high sodium.
--- OUTSIDE RECORDS SUMMARY | 2024-09-11 10:49 | XMS_ITS | Continuity of Care Document ---
Author Organization [facility] Address [address] [place] [id number]- Care Team Providers Care Research Support Specialist Name Role Phone Aquilino Black MD [id number] Date(s): 09/08/24 - 09/09/[address] [address]- Discharge Disposition: A-D/C Home Attending Physician: Allie Collins DO Admitting Physician: Jus Anton MD Referring Physician: Not on Staff, Referring MD Encounter Type: Disch Obv Allergies, Adverse Reactions, Alerts No Known Allergies Medications folic acid 1 mg oral tablet 1 tablet = 1 mg, By Mouth, Daily, 0 Refills, Maintenance, 08/26/13 8:35:49 AM EDT Start Date: 08/26/13 Status: Ordered Repeat number: 1 L carbon fiber AFO L carbon fiber AFO, See Instructions, # 1 each, Refills 0, Tot. Refills 0, Maintenance, Dx: Spasticleft HP, 02/27/22 7:36:00 AM EST, Compound Start Date: 02/27/22 Status: Ordered Quantity: 1.0 Unit: each Repeat number: 1 lacosamide 150 mg oral tablet = 300 mg, By Mouth, 2 times a day, # 120 tablet, 5 Refills, Maintenance, 02/25/23 10:21:00 AM EST, Tablet, [facility], 175, cm, 02/15/23 13:36:00 EDT, Height, 60, kg, 12/10/22 10:35:00EDT, Dry Weight Start Date: 02/25/23 Status: Ordered Quantity: 120.0 Unit: tablet Repeat number: 6 Left carbon fiber AFO Left carbon fiber AFO, See Instructions, # 1 units, Refills 0, Tot. Refills 0, Maintenance, Dx: TBI/ left hemiplegia, 02/04/19 11:33:24 AM EDT, Compound Start Date: 02/04/19 Status: Ordered Quantity: 1.0 Unit: Units Repeat number: 1 Left shoe/heel lift Left shoe/heel lift, See Instructions, # 1 each, Refills 0, Tot. Refills 0, Maintenance, Dx: TBI, LLD, 12/31/19 12:02:00 PM EDT, Compound Start Date: 12/31/19 Status: Ordered Quantity: 1.0 Unit: each Repeat number: 1 Linzess 290 mcg oral capsule 1 capsule = 290 mcg, By Mouth, Daily, # 30 capsule, 0 Refills, Maintenance, 09/08/24 11:24:00 PM EDT, Capsule, Partial fill upon patient request if the prescription is for a schedule II opioid drug. Start Date: 09/08/24 Status: Ordered Quantity: 30.0 Unit: capsule Repeat number: 1 phenytoin 100 mg oral capsule, extended release = 200 mg, By Mouth, 2 times a day, # 120 capsule, 5 Refills, Maintenance, 02/25/23 10:21:00 AM EST, ER Capsule, [facility], 175, cm, 02/15/23 13:36:00 EDT, Height, 60, kg, 12/10/22 10:35:00 EDT, Dry Weight Start Date: 02/25/23 Status: Ordered Quantity: 120.0 Unit: capsule Repeat number: 6 Reguloid 400 mg oral capsule See Instructions, 1 capsule By Mouth, 0 Refills, Maintenance, 09/08/24 11:46:00 PM EDT, Partial fillupon patient request if the prescription is for a schedule II opioid drug. Start Date: 09/08/24 Status: Ordered Repeat number: 1 Repair Left AFO Straps Repair Left AFO Straps, See Instructions, # 1 kit, Refills 0, Tot. Refills 0, Maintenance, Dx: Spastic left HP, 08/06/24 11:24:00 AM EDT, Supply Start Date: 08/06/24 Status: Ordered Quantity: 1.0 Unit: kit Repeat number: 1 Senna-Time 8.6 mg oral tablet TAKE 17.2 MG (2 X 8.6 MG) BEDTIME FOR CONSTIPATION Start Date: 05/25/21 Status: Ordered Repeat number: 1 sertraline 100 mg oral tablet 1 tablet = 100 mg, By Mouth, Daily, # 30 tablet, 0 Refills, Maintenance, 09/08/24 11:24:00 PM EDT, Tablet, Partial fill upon patient request if the prescription is for a schedule II opioid drug. Start Date: 09/08/24 Status: Ordered Quantity: 30.0 Unit: tablet Repeat number: 1 tiZANidine 4 mg oral tablet 4 mg, 1, tablet, By Mouth, 3 times a day, # 270 tablet, Refills 2, Tot. Refills 2, Maintenance, 05/07/24 10:50:00 AM EST, Route to Pharmacy Electronically, [facility], 175, cm, 05/07/24 10:26:00 EST, Height, 60, kg, 12/10/22 10:35:00 EDT, Dry Weight Start Date: 05/07/24 Status: Ordered Quantity: 270.0 Unit: tablet Repeat number: 3 Vitamin D 47643 iu oral capsule 1 capsule = 50,000 International_Units, By Mouth, Every week, 0 Refills, Maintenance, 08/26/13 8:35:02 AM EDT Start Date: 08/26/13 Status: Ordered Repeat number: 1 Problem List Condition Confirmation Course Effective Dates Status Health St atus Informant Depression Confirmed Active Therapeutic drug monitoring Confirmed Active Epilepsy and recurrent seizures Confirmed 07/08/09 Active Pressure ulcer stage I Confirmed 07/08/09 Active Pressure ulcer, other site Confirmed 07/08/09 Active Left spastic hemiplegia Confirmed Active Spasticity Confirmed Active Traumatic brain injury Confirmed Active Results Radiology Reports * Exam Date Time Procedure Performing Provider Status 09/08/24 6:[address] Head/Brain W/O Contrast Cirilo Hornera; Auth (Verified) Notes: (CT Head/Brain W/O Contrast) Reason For Exam: Seizure Disorder RESULT: CT Head/Brain W/O Contrast CT Cervical Spine W/O Contrast, CT Head/Brain W/O Contrast INDICATION: Hx of Present Illness: seizure; Reason: Trauma; Clinical Question(s): Fracture Dislocation TECHNIQUE: Noncontrast head CT using axial technique was reconstructed in axial and coronal planes.Noncontrast spiral CT through the cervical spine was formatted in 3 planes. Automatic tube modulation was used for the cervical spine and iterative dose reconstruction was used for both the head and cervical spine to optimize scan parameters and image quality. CTDIvol Body: 10.48 mGy, DLP Body: 548 mGy*cm. CTDIvol Head: 45.28 mGy, DLP Head: 815 mGy*cm. COMPARISON: None. FINDINGS: Reactor Technician View Findings, Lines and Tubes: Surgical clips in the lower left neck. BRAIN AND EXTRA-AXIAL SPACES: Multiple right craniotomy. Diffuse volume loss throughout the right cerebral hemisphere with ex vacuo enlargement of the rightlateral ventricle body and frontal horn. Moderate enlargement of the left lateral ventricle. No parenchymal hemorrhage, midline shift, or mass effect. Sanz-white matter differentiation is wellpreserved. No acute infarct. Negative insular ribbon sign. Atherosclerotic vascular calcification of the carotid arteries but negative hyperdense vessel sign. Mild low-density white matter changes. No subarachnoid hemorrhage. No subdural or epidural collection. CALVARIUM, SKULL BASE, AND SOFT TISSUES: No fractures or suspicious bony lesions. Mild bilateral maxillary and ethmoid sinus mucosal thickening. Otherwise the paranasal sinuses and mastoid air cells are clear. Visualized orbits and globes are intact. The extracranial soft tissues are unremarkable. CERVICAL SPINE: No fracture. No acute osseous abnormalities. Normal alignment. No locked or perched facet. Intervertebral disc spaces and vertebral body heightsare preserved. OTHER BONES: No acute abnormality. CERVICAL SOFT TISSUES AND LUNG APICES: Surgical clips in the lower left neck. Visualized lung apices are clear. IMPRESSION: No acute abnormality of the head or cervical spine. Multiple right-sided craniotomies with diffuse volume loss throughout the right cerebral hemisphereand associated ex vacuo enlargement of the right lateral ventricle. WSN: [id number] Ordering Physician: Brenda Kerr Dictated By: Kee Saldaña MD Dictated Date/Time: 09/08/24 7:11 pm Reviewed By: Kee Saldaña MD Signed By: Kee Saldaña MD Signed Date/Time: 09/08/24 7:11 pm Transcribed By: BRITTANY Transcribed Date/Time: 09/08/24 7:05 pm * Exam Date Time Procedure Performing Provider Status 09/08/24 6:[address] Cervical Spine W/O Contrast Nemo Horner; Auth (Verified) Notes: (CT Cervical Spine W/O Contrast) Reason For Exam: Trauma RESULT: CT Cervical Spine W/O Contrast CT Cervical Spine W/O Contrast, CT Head/Brain W/O Contrast INDICATION: Hx of Present Illness: seizure; Reason: Trauma; Clinical Question(s): Fracture Dislocation TECHNIQUE: Noncontrast head CT using axial technique was reconstructed in axial and coronal planes.Noncontrast spiral CT through the cervical spine was formatted in 3 planes. Automatic tube modulation was used for the cervical spine and iterative dose reconstruction was used for both the head and cervical spine to optimize scan parameters and image quality. CTDIvol Body: 10.48 mGy, DLP Body: 548 mGy*cm. CTDIvol Head: 45.28 mGy, DLP Head: 815 mGy*cm. COMPARISON: None. FINDINGS: Reactor Technician View Findings, Lines and Tubes: Surgical clips in the lower left neck. BRAIN AND EXTRA-AXIAL SPACES: Multiple right craniotomy. Diffuse volume loss throughout the right cerebral hemisphere with ex vacuo enlargement of the rightlateral ventricle body and frontal horn. Moderate enlargement of the left lateral ventricle. No parenchymal hemorrhage, midline shift, or mass effect. Sanz-white matter differentiation is wellpreserved. No acute infarct. Negative insular ribbon sign. Atherosclerotic vascular calcification of the carotid arteries but negative hyperdense vessel sign. Mild low-density white matter changes. No subarachnoid hemorrhage. No subdural or epidural collection. CALVARIUM, SKULL BASE, AND SOFT TISSUES: No fractures or suspicious bony lesions. Mild bilateral maxillary and ethmoid sinus mucosal thickening. Otherwise the paranasal sinuses and mastoid air cells are clear. Visualized orbits and globes are intact. The extracranial soft tissues are unremarkable. CERVICAL SPINE: No fracture. No acute osseous abnormalities. Normal alignment. No locked or perched facet. Intervertebral disc spaces and vertebral body heightsare preserved. OTHER BONES: No acute abnormality. CERVICAL SOFT TISSUES AND LUNG APICES: Surgical clips in the lower left neck. Visualized lung apices are clear. IMPRESSION: No acute abnormality of the head or cervical spine. Multiple right-sided craniotomies with diffuse volume loss throughout the right cerebral hemisphereand associated ex vacuo enlargement of the right lateral ventricle. WSN: [id number] Ordering Physician: Brenda Kerr By: Kee Saldaña MD Dictated Date/Time: 09/08/24 7:11 pm Reviewed By: Kee Saldaña MD Signed By: Kee Saldaña MD Signed Date/Time: 09/08/24 7:11 pm Transcribed By: BRITTANY Transcribed Date/Time: 09/08/24 7:05 pm Vital Signs Most recent to oldest [Reference Range]: 1 2 3 Weight 54.6 kg (09/08/24 9:06 PM) Oxygen Saturation [94-100 %] 95 % (09/09/24 3:01 PM) 97 % (09/09/24 10:03 AM) 93 % *L* (09/09/24 6:28 AM) Pulse Rate [55-90 bpm] 71 bpm (09/09/24 3:01 PM) 60 bpm (09/09/24 10:03 AM) 64 bpm (09/09/24 6:28 AM) Blood Pressure [90-138/55-84 mm Hg] 127/87mm Hg (09/09/24 3:01 PM) 119/71mm Hg (09/09/24 10:03 AM) 120/75mm Hg (09/09/24 6:28 AM) Respiratory Rate [16-30 br/min] 18 br/min (09/09/24 3:01 PM) 18 br/min (09/09/24 10:03 AM) 18 br/min (09/09/24 6:28 AM) Temperature [96.8-100.4 DegF] 98.4 DegF (09/09/24 3:01 PM) 98.3 DegF (09/09/24 10:03 AM) 98 DegF (09/09/24 6:28 AM) Mode of Delivery (Oxygen) Room air (09/09/24 3:01 PM) Room air (09/09/24 10:03 AM) Room air (09/09/24 6:28 AM) Blood pressure sites Arm, right (09/09/24 3:01 PM) Arm, right (09/09/24 10:03 AM) Arm, right (09/09/24 6:28 AM) Temperature Route Oral (09/09/24 3:01 PM) Oral (09/09/24 10:03 AM) Oral (09/09/24 6:28 AM) Weight Obtained Via Bed scale (09/08/24 9:06 PM) Social History Social History Type Response Smoking Status 10 or more cigarette s (1/2 pack or more)/day in last 30 days; Other: 1 pack a day; entered on: 01/23/24 Sex Sex Representation Male (finding) Admission evaluation note * Jake FIGUEROA, Lena Washington: PERFORM Event Display: Admission Note Authored Date: Patient: ??WYATT EWING ? Age:??53 Years?Sex:??Male?:??1970?? Chief Complaint/Reason for Consultation pt coming from TBI clinic/physical rehab. pt walked outside, pt was found down in parking lot. possseizure. per EMS report pt appeared postictal-confused. hx of TBI. a&ox4 History of Present Illness Mr. Ewing is a??53-year-old male with past medical history of TBI as a child, epilepsy, left spastic hemiaplasia, depression, constipation, who presents to the emergency department today after being found down.?? He had gone to his physical therapy appointment, and states I had a seizure outside. ?? He states that it came on suddenly, he did not have a prodrome.?? His last seizure was about amonth ago.?? He reports compliance with his medications. On arrival in the emergency room, pressure was elevated 140/87.?? Laboratory studies were significant for sodium of 160, potassium of 3.5, chloride 81, bicarb 19, anion gap 60.?? CT of the brain and cervical spine did not show any acute abnormalities.?? He was given 1 L IV NS.?? Renal was consultedand recommended D5W.?? Request was made for admission. At the time of my evaluation, patient was sleeping but woke easily.?? He was calm and cooperative.?? He denied a full review of systems.?? Of note, he had brought with him medications from home, and he did take his evening medications before we could educate him to please not do this. Review of Systems General: Denies lightheadedness, dizziness HEENT:?? Denies headache, runny nose, sore throat Cardiac:?? Denies chest pain or palpitations Respiratory:?? Denies SOB or cough Abdomen:?? Denies nausea, vomiting, abdominal pain, diarrhea, or constipation :?? Denies hematuria or dysuria Skin:?? Denies rashes or wounds Neuro: Endorses seizure Objective Measurements?? Weight: 54.6 kg (09/08/24) ?? Vital Signs?? Temperature: 97.9 DegF (09/08/24 21:06:00) Temperature Route: Oral (09/08/24 21:06:00) Pulse Rate: 62 bpm (09/08/24:06:00) Respiratory Rate: 21 br/min (09/08/24 21:06:00) Systolic Blood Pressure:??140 mm Hg??High (09/08/24 21:06:00) Diastolic Blood Pressure:??86 mm Hg??High (09/08/24:06:00) Blood pressure sites: Arm, right (09/08/24 21:06:00) Mean Arterial Pressure: 104 mm Hg (09/08/24 21:06:00) Pulse Pressure: 54 mm Hg (09/08/24 21:06:00) Oxygen Saturation: 100 % (09/08/24 21:06:00) Mode of Delivery (Oxygen): Room air (09/08/24 21:06:00) Early Warning Score: 7 (09/08/24 21:19:02) ? Intake/Output? No Data Available ?? Precautions Seizure Precautions ? Physical Exam Physical Exam: General: No apparent distress, appears stated age, awake, alert, cooperative with exam Head/Neck/Throat: Normocephalic, atraumatic, moist mucous membranes Eyes: Sclera anicteric, EOMI Thorax: Clear to auscultation bilaterally, no respiratory distress Cardiovascular: Regular rate and rhythm, no murmurs rubs or gallops, no peripheral edema Abdomen: Soft, nontender, non-distended, normoactive bowel sounds Musculoskeletal:??Left hand spastic??deformity Skin: No rashes or wounds noted on exposed skin Neurologic: Alert and oriented x3, no focal neurological deficits, no facial droop, left hand??spastic Psychiatric: Normal affect Assessment/Plan Diagnoses 1. ??Hypernatremia ??(E87.0) 2. ??Hyponatremia ??(E87.1) 3. ??Seizure ??(R56.9) 4. ??Syncope and collapse ??(R55) 5. ??Epilepsy and recurrent seizures ??(G40.909) 6. ??Left spastic hemiplegia ??(G81.14) 8. ??Depression ??(F32.A) ?? Assessment:??53-year-old male with past medical history of TBI as a child, epilepsy, left spastic hemiaplasia, depression, constipation, who presents to the emergency department today after being found down, likely due to seizure, found to be hypernatremic ?? Hypernatremia (E87.0):??Patient found to be significantly hyponatremic with sodium 116 Was given 1 L normal saline in the ED Repeat sodium 151 Renal saw the patient and recommended D5W 125cc/hr Trend BMP, CBC, Mag ?? Hyponatremia (E87.1):??Potassium was 3.5 Will give 20 mEq??p.o. KCl Trend BMP ?? Seizure (R56.9) Syncope and collapse (R55) ? Likely seizure, patient reports last seizure was over a month ago Less likely syncope Dilantin level was slightly low at??7.4, but patient does report compliance Lacosamide level is pending Continue home meds as below, will not adjust at this time Consider neurology consult, defer to daytime team ?? Epilepsy and recurrent seizures (G40.909) Left spastic hemiplegia (G81.14) ? Continue home lacosamide 300 mg twice daily, phenytoin 200 mg twice daily Continue home tizanidine 4 mg 3 times daily for spasticity ?? Depression (F32.A):??Continue home sertraline 100 mg daily ?? VTE Prophylaxis:??Pneumatic compression boots ?VTE Prophylaxis Assessment:??Risk Level documented as Low Risk ?? Tobacco Use Treatment:??Nicotine patch ?Tobacco Use Treatment Provided:??Cessation Medication Ordered ?? Discharge Planning:??Pending improvement in sodium ?? Code Status:??Full CODE STATUS, confirmed with patient ?Order Code Status:??Code Status Ordered ?? I personally spent a total of??75 minutes reviewing the chart, notes, images, and labs, speaking with nurses, examining and interviewing the patient, placing orders, reconciling medications, and documenting in the medical record. ? Histories Allergies Allergies ?(Active and Proposed Allergies Only) NKA? (Severity: Unknown severity, Onset: Unknown) ? Past Medical History/Problem List Active Problems(8) Depression Epilepsy and recurrent seizures Left spastic hemiplegia Pressure ulcer stage I Pressure ulcer, other site Spasticity Therapeutic drug monitoring Traumatic brain injury ? Past Surgical History Left wrist metal plate Multiple craniotomies Vagus nerve stimulator ? Social History Alcohol Details:??Use: Never. Substance Abuse Details:??Use: Never. Tobacco Details:??Use: 10 or more cigarettes (1/2 pack or more)/day in last 30 days. ??Other: 1 pack a day. ? Family History Denies ?? Medications Home Medications Durable Medical Equipment (L carbon ??fiber AFO)??See Instructions Dx: Spastic left HP Durable Medical Equipment (Left carbon fiber AFO)??See Instructions Dx: TBI / left hemiplegia Durable Medical Equipment (Left shoe/heel lift)??See Instructions Dx: TBI, LLD Durable Medical Equipment (Repair Left AFO Straps)??See Instructions Dx: Spastic left HP Ergocalciferol (Vitamin D 28116 iu oral capsule)??1 capsule 50,000 International Unit By Mouth Every week Folic Acid (folic acid 1 mg oral tablet)??1 tab(s) 1 Milligram By Mouth Daily Lacosamide (lacosamide 150 mg oral tablet)??300 Milligram By Mouth 2 times a day linaclotide (Linzess 290 mcg oral capsule)??1 capsule 290 Microgram By Mouth Daily Phenytoin (phenytoin 100 mg oral capsule, extended release)??200 Milligram By Mouth 2 times a day Psyllium (Reguloid 400 mg oral capsule)??See Instructions 1 capsule By Mouth Senna (Senna-Time 8.6 mg oral tablet)??TAKE 17.2 MG (2 X 8.6 MG) BEDTIME FOR CONSTIPATION Sertraline (sertraline 100 mg oral tablet)??1 tab(s) 100 Milligram By Mouth Daily Tizanidine (tiZANidine 4 mg oral tablet)??4 Milligram 1 tablet By Mouth 3 times a day ? Inpatient Medications Medications (20) Active SCHEDULED: (12) Folic Acid 1 mg Tablet (folic acid 1 mg oral tablet) ??1 mg, By Mouth, Daily Lacosamide 100 mg Tablet (Lacosamide Tablet) ??300 mg, By Mouth, 2 times a day NaCl 0.9% Flush 3ml (NaCL 0.9% Flush) ??3 mL, IV Push, Every 8 hours Nicotine 14 mg / 24 hour Patch (Nicotine Topical) ??14 mg, Topically, Daily Nicotine 21 mg / 24 hour Patch (Nicotine Topical) ??21 mg, Topically, Daily Phenytoin 50 mg Chewable Tablet (Dilantin Tablet) ??200 mg, By Mouth, 2 times a day Potassium Chloride 10mEq ER Tablet (potassium chloride 10 mEq oral tablet, extended release) ??20 mEq, By Mouth, Once Remove Patch (Remove ??Patch) ??1 each, Topically, Daily Remove Patch (Remove ??Patch) ??1 each, Topically, Daily Sertraline 50 mg Tablet (sertraline 50 mg oral tablet) ??100 mg, By Mouth, Daily Tizanidine 4 mg Tablet (tiZANidine 4 mg oral tablet) ??4 mg, By Mouth, 3 times a day Vitamin D 50,000 International Unit Capsule (Vitamin D 47064 iu oral capsule) ??50,000 International_Units, By Mouth, Every week CONTINUOUS: (1) D5%W (1000 mL) Cont IV 1,000 mL (D5%W 1,000 mL) ??1,000 mL, IV Infusion, 125 mL/hr PRN: (7) Acetaminophen 325 mg Tablet (Acetaminophen Tablet) ??650 mg, By Mouth, Every 4 hours Melatonin 3 mg Tablet (Melatonin Tablet) ??3 mg, By Mouth, Daily at bedtime NaCl 0.9% Flush 3ml (NaCL 0.9% Flush) ??3 mL, IV Push, Every 8 hours Nicotine Gum 4mg (Nicotine Gum) ??4 mg, Chew, Every hour Polyethylene Glycol 17 Gm Powder (MiraLax Powder) ??17 Gm 1 pack/packet, By Mouth, Daily Senna Tablet ??8.6 mg 1 tablet, By Mouth, 2 times a day Simethicone 80 mg Chewable Tablet (Simethicone Tablet) ??80 mg, Chew, 3 times a day ? Results Recent Labs BLOOD COUNT & DIFF WBC 10.6 k/mm3 ()?? 09/08/2024 16:20 RBC 4.66 m/mm3 (Low)?? 09/08/2024 16:20 Hgb 14.8 Gm/dL ()?? 09/08/2024 16:20 Hct 42.7 % ()?? 09/08/2024 16:20 MCV 91.6 femtoliters ()?? 09/08/2024 16:20 MCH 31.8 pg ()?? 09/08/2024 16:20 MCHC 34.7 Gm/dL ()?? 09/08/2024 16:20 Platelet Count 250 k/mm3 ()?? 09/08/2024 16:20 RDW-SD 46.4 femtoliters ()?? 09/08/2024 16:20 MPV 11.4 femtoliters ()?? 09/08/2024 16:20 Nucleated RBC (Automated) 0.0 #/100 WBC'S ()?? 09/08/2024 16:20 Abs. NRBC 0.0 k/mm3 ()?? 09/08/2024 16:20 Abs. Neut 5.0 k/mm3 ()?? 09/08/2024 16:20 Abs. Lymph 4.1 k/mm3 (High)?? 09/08/2024 16:20 Abs. [place] 0.8 k/mm3 ()?? 09/08/2024 16:20 Abs. Eo 0.7 k/mm3 (High)?? 09/08/2024 16:20 Abs. Baso 0.1 k/mm3 ()?? 09/08/2024 16:20 Neut % 47.1 % ()?? 09/08/2024 16:20 Lymph % 38.4 % ()?? 09/08/2024 16:20 [place] % 7.1 % ()?? 09/08/2024 16:20 Eos % 6.6 % (High)?? 09/08/2024 16:20 Baso % 0.6 % ()?? 09/08/2024 16:20 Imm Gran 0.2 % ()?? 09/08/2024 16:20 Abs. Imm Gran 0.0 k/mm3 ()?? 09/08/2024 16:20 ?? CARDIAC CK, Total 80 units/L ()?? 09/08/2024 16:20 High Sensitivity Troponin (HSTnT) 9 ng/L ()?? 09/08/2024 16:20 ?? CHEM GENERAL Sodium 151 mmol/L (Critical)?? 09/08/2024 19:35 Potassium 3.5 mmol/L (Low)?? 09/08/2024 16:20 Chloride 81 mmol/L (Low)?? 09/08/2024 16:20 Bicarbonate Level 19 mmol/L (Low)?? 09/08/2024 16:20 Anion Gap 60 mmol/L (High)?? 09/08/2024 16:20 Glucose Level 82 mg/dL ()?? 09/08/2024 16:20 Beta Hydroxybutyrate <0.05 mmol/L ()?? 09/08/2024 16:20 BUN 7 mg/dL ()?? 09/08/2024 16:20 Creatinine-Blood 0.54 mg/dL (Low)?? 09/08/2024 16:20 Estimated GFR Creatinine 121 ML/MIN/1.73 M2 ()?? 09/08/2024 16:20 Calcium 7.2 mg/dL (Low)?? 09/08/2024 16:20 Calcium, Ionized pH Corrected 1.17 mmol/L ()?? 09/08/2024 16:20 Magnesium 2.1 mg/dL ()?? 09/08/2024 16:20 Protein, Total 5.7 Gm/dL (Low)?? 09/08/2024 16:20 Albumin 3.5 Gm/dL ()?? 09/08/2024 16:20 AG Ratio 1.6 ()?? 09/08/2024 16:20 Alkaline Phosphatase 68 units/L ()?? 09/08/2024 16:20 AST (SGOT) 16 units/L ()?? 09/08/2024 16:20 ALT (SGPT) 15 units/L ()?? 09/08/2024 16:20 Bilirubin, Total <0.2 mg/dL ()?? 09/08/2024 16:20 Lactate 0.7 mmol/L ()?? 09/08/2024 19:35 ?? TOXICOLOGY/TDM Ethanol, Serum or Plasma NONE DETECTED mg/dL ()?? 09/08/2024 16:20 Dilantin Level 7.4 mg/L (Low)?? 09/08/2024 16:20 Salicylate Level <0.3 mg/dL (Low)?? 09/08/2024 16:20 Acetaminophen Level <5 mg/L (Low)?? 09/08/2024 16:20 ?? URINE OTHER Osmolality, Urine Random 269 mOsm/kg ()?? 09/08/2024 17:51 ? Image ?12 Lead ECG??09/08/2024 14:06 by Braden MENDOZA, Alfa ?CT Cervical Spine W/O Contrast??09/08/2024 18:33 by Nemo Horner ?IMPRESSION: No acute abnormality of the head or cervical spine. Multiple right-sided craniotomies with diffuse volume loss throughout the right cerebral hemisphere and associated ex vacuo enlargement of the right lateral ventricle. ?CT Head/Brain W/O Contrast??09/08/2024 18:33 by Nemo Horner ?IMPRESSION: No acute abnormality of the head or cervical spine. Multiple right-sided craniotomies with diffuse volume loss throughout the right cerebral hemisphere and associated ex vacuo enlargement of the right lateral ventricle. ?? Consult ?Renal??09/08/2024 19:25 by Allyson MENDOZA, Ariel ? EKG study * Event Display: ECG 12-Lead Authored Date: Please click on pdf link to open report * Event Display: ECG 12-Lead Authored Date: Ventricular Rate: 73 BPM Atrial Rate: 73 BPM P-R Interval: 164 ms QRS Duration: 104 ms Q-T Interval: 392 ms QTC Calculation(Bazett): 431 ms P [place]: 79 degrees R [place]: 99 degrees T [place]: 75 degrees Normal sinus rhythm Possible Left atrial enlargement Rightward axis ST elevation, consider early repolarization, pericarditis, or injury When compared with ECG of 15-Feb-2023 13:26, No significant change was found Confirmed by ALFA MIRANDA ([id number]) on 09/08/2024 2:17:00 PM Aroda: ALFA MIRANDA Cardiology * Event Display: Cardiac Rhythm Strips Authored Date: Consult note * Trupti Aleman: PERFORM, MODIFY Event Display: Consultation Note Authored Date: Patient: ??WYATT EWING ? Age:??53 Years?Sex:??Male?:??1970?? Chief Complaint/Reason for Consult Seizure History of Present Illness 53-year-old male with past medical history of TBI, epilepsy (follows with Dr. Horan, takes lacosamide 300mg BID and Dilantin 200mg BID and has VNS stimulator), left spastic hemiparesis, depression, type constipation??Presenting to the hospital after being found down outside his physical therapist office.?? Patient states that he was sitting waiting for a ride home when the next thing he remembers is waking up in the ambulance.Patient was brought to the emergency room for further evaluation.?? CAT scan was obtained which was nonacute.?? Lactate was 0.7.?? Dilantin level was 7.4.?? He has had low Dilantin and lacosamide levels in the past.??He did have a sodium level of 160.?? He was given D5W and sodium is now normal.?? There have been no recurrent seizure events. Patient currently feels at baseline. ? There was??no prodromal symptoms.?? There was no witnessed event.?? Patient and his sister who is his caregiver states that his last seizure was about 1 month ago and usually consists of convulsions/generalized tonic-clonic shaking.?? He has about 8 seizures per year.??I called his Sister Dalila to discuss medication regimen.?? She states that she recently found one of his??Antiepileptic pills on his dresser.?? She states that he misses his pills once in a while .?? She denies any recent illness, sleep deprivation. Review of Systems ROS significant for seizure Patient denies the following General: fevers HEENT: hearing loss Cardiac: chest pain, palpitations Pulmonary: SOB Gastrointestinal: abdominal pain Genitourinary: incontinence Musculoskeletal: myalgias Dermatological: rash Hematological: bruising Psychiatric: depression Neurological: weakness, numbness, paresthesias, headache, diplopia, visual field loss, dysarthria, dysphagia, aphasia, facial droop, ??gait imbalance, vertigo ?? Physical Exam Vitals & Measurements T:??98.3?F?? HR:??60??(Peripheral)?? RR:??18?? BP:??119/71?? SpO2:??97%?? WT:??54.6??kg? Gen: NAD, awake, alert HEENT: normocephalic, atraumatic. No ptosis. Nares patent. Mouth normal. Psych: not depressed or anxious Cardio: RRR Lungs: normal I:E Abdomen: nondistended Extremities: no edema Skin: no rashes Mental status: Oriented to self, location, year but not month.?? He is oriented to the situation. Speech is fluent, appropriate with no slurring or aphasia. Follows simple and complex commands. Cranial Nerves: PERRL, EOMI without nystagmus, VFF. Face appears symmetric with no drooping or weakness. Motor: 5/5 RUE, RLE. 3/5 LUE, 4/5 LLE. LUE contracture and atrophy Sensation: Intact light touch sensation bilaterally.?? Assessment/Plan 53-year-old male with past medical history of TBI, epilepsy (follows with Dr. Horan, takes lacosamide 300mg BID and Dilantin 200mg BID and has VNS stimulator), left spastic hemiparesis, depression, type constipation??Presenting to the hospital after being found down outside his physical therapist office.?? Patient states that he was sitting waiting for a ride home when the next thing he remembers is waking up in the ambulance. CT nonacute, lactate 0.7, dilantin level 7.4, NA 160. HE has Missedat least 1 dose of antiepileptics recently.?? He has had no further seizures and is at his baseline. ?? ddx: may have had seizure, if so could be provoked from metabolic abnormalities Or secondary to missed antiepileptic medications.?? He has often subtherapeutic levels of antiepileptic medications. ?? Recommendations: -Continue home Dilantin 200 mg twice daily ??? Continue home lacosamide 300 mg twice daily ??? Discussed importance of medication compliance ??? Seizure precautions ??? Versed IM as needed seizures ??? Follow-up with patient's neurologist, Dr. Horan at [facility] -will sign off ?? d/w Dr. Samayoa, Dr. Collins Problem List/Past Medical History Ongoing Depression Epilepsy and recurrent seizures Left spastic hemiplegia Pressure ulcer stage I Pressure ulcer, other site Spasticity Therapeutic drug monitoring Traumatic brain injury Procedure/Surgical History No qualifying data available. Home Medications Durable Medical Equipment (Left carbon fiber AFO) (Left carbon fiber AFO): See Instructions, Dx: TBI / left hemiplegia Durable Medical Equipment (Left shoe/heel lift): See Instructions, Dx: TBI, LLD Durable Medical Equipment (Repair Left AFO Straps): See Instructions, Dx: Spastic left HP Durable Medical Equipment (L carbon ??fiber AFO) (L carbon ??fiber AFO): See Instructions, Dx: Spastic left HP Ergocalciferol: 50,000 International_Units = 1 capsule, By Mouth, Every week Folic Acid: 1 mg = 1 tablet, By Mouth, Daily Lacosamide: 300 mg, By Mouth, 2 times a day linaclotide: 290 mcg = 1 capsule, By Mouth, Daily Phenytoin: 200 mg, By Mouth, 2 times a day Psyllium: See Instructions, 1 capsule By Mouth Senna: TAKE 17.2 MG (2 X 8.6 MG) BEDTIME FOR CONSTIPATION Sertraline: 100 mg = 1 tablet, By Mouth, Daily Tizanidine: 4 mg = 1 tablet, By Mouth, 3 times a day Allergies NKA Social History Denies alcohol or drug use. Smokes 1 pack/day ?? FAMILY HISTORY: denies family history of epilepsy Radiology CTH: IMPRESSION: ?? No acute abnormality of the head or cervical spine. Multiple right-sided craniotomies with diffuse volume loss throughout the right cerebral hemisphereand associated ex vacuo enlargement of the right lateral ventricle. ?Images have been personally reviewed by myself * Danita MENDOZA, Parvin Medbernardino: PERFORM Event Display: Consultation Note Authored Date: Attending PA/FOOD STYLIST Attestation:??I have reviewed the patient's medical history, findings on examination, diagnosis and treatment plan as documented in the PA/FOOD STYLIST note. Case and its management discussed with PA/FOOD STYLIST.?? I have seen and examined the patient. ?? This is a 53-year-old man with past medical history of TBI, left??spastic??hemiparesis,??seizure disorder on lacosamide and Dilantin, s/p VNS??who presented??with??possible seizure.?? Patient was found down??outside of his physical??therapist office, remembers waking up in the ambulance.?? There was no witnessed seizure.?? Patient follows with Dr. Horan??at [facility] for the management of seizures. Lactate was 0.7.?? Dilantin level was 7.4.?? He was found to be hypernatremic??withsodium of 160.?? Per the information from his caregiver, his last seizure was approximately 1 month ago??and his seizures are described as??generalized tonic-clonic??seizures.?? His caregiver??stated??that he might have missed??at least 1 dose of antiseizure medication recently. ?? Patient presented with a possible seizure, likely provoked by metabolic abnormalities (hypernatremia) and a recent missed dose of antiseizure medication. ??Recommend correcting the underlying metabolic abnormalities and??continuing the home antiseizure medication regimen without any change at this time. ??Continue to follow-up with his neurologist as an outpatient. ??Advised him to let his neurologist know about his presentation.? * Ariel Valadez MD: PERFORM, SIGN, VERIFY Event Display: Consultation Note Authored Date: Patient: WYATT EWING Age: 53 years Sex: Male : 1970 Associated Diagnoses: None Author: Ariel Valadez MD ??[facility] Inpatient Nephrology Note ??Interval History Consult for hypenatremia found down for an unknown period of time post sz - likely the etiology of the hypernatremia agree with d5w @ 125ml / hr with potassium repletion added on total ck Full consult to follow??in am Thank you for the courtesy of this consult, RTANE ??will continue monitoring the patient along withyou please do not hesitate to call us with any further questions Ariel Valadez M.D. [facility] [address], [address]. [place] Note * Loraine Chavez RN: PERFORM Event Display: Discharge/Transfer Note Hospital Authored Date: Nursing Discharge Note Entered On: 09/09/2024 17:04 EDT Performed On: 09/09/2024 17:04 EDT by Loraine Chavez RN Nursing Discharge Note 2 Discharge Time : 09/09/2024 17:04 EDT Discharge Level of Care at Discharge : Home/Correction/Foster Care Patient Left Unit Via : Wheelchair Patient Accompanied Off Unit with : Responsible adult DC Instructions Provided & Signed by Pt : Yes Patient Understands D/C Instructions : Yes Patient Instructions Discharge Signed : Yes Did Pt have Specialty Bed or Wound Vac : No Loraine Chavez RN - 09/09/2024 17:04 EDT * Allie Collins DO: PERFORM, MODIFY Event Display: Discharge/Transfer Note Hospital Authored Date: Patient: ??WYATT EWING ? Age:??53 Years?Sex:??Male?:??1970?? Patient Information Discharge Location: B Primary Care Physician: Aquilino Black MD Admit Date/Time: 09/08/2024 20:19 Discharge Date:??09/09/2024 11:11 Discharge Disposition Discharge Disposition: Home: No Services Discharge Diagnosis Hypernatremia (E87.0) Hyponatremia (E87.1) Seizure (R56.9) Syncope and collapse (R55) Epilepsy and recurrent seizures (G40.909) Left spastic hemiplegia (G81.14) Traumatic brain injury (698803) Depression (F32.A) _ Discharge Medications Durable Medical Equipment (L carbon ??fiber AFO)??See Instructions Dx: Spastic left HP Durable Medical Equipment (Left carbon fiber AFO)??See Instructions Dx: TBI / left hemiplegia Durable Medical Equipment (Left shoe/heel lift)??See Instructions Dx: TBI, LLD Durable Medical Equipment (Repair Left AFO Straps)??See Instructions Dx: Spastic left HP Ergocalciferol (Vitamin D 24715 iu oral capsule)??1 capsule 50,000 International Unit By Mouth Every week Folic Acid (folic acid 1 mg oral tablet)??1 tab(s) 1 Milligram By Mouth Daily Lacosamide (lacosamide 150 mg oral tablet)??300 Milligram By Mouth 2 times a day linaclotide (Linzess 290 mcg oral capsule)??1 capsule 290 Microgram By Mouth Daily Phenytoin (phenytoin 100 mg oral capsule, extended release)??200 Milligram By Mouth 2 times a day Psyllium (Reguloid 400 mg oral capsule)??See Instructions 1 capsule By Mouth Senna (Senna-Time 8.6 mg oral tablet)??TAKE 17.2 MG (2 X 8.6 MG) BEDTIME FOR CONSTIPATION Sertraline (sertraline 100 mg oral tablet)??1 tab(s) 100 Milligram By Mouth Daily Tizanidine (tiZANidine 4 mg oral tablet)??4 Milligram 1 tablet By Mouth 3 times a day ? Quality Measures Tobacco Use Treatment:? Future Appointments 2024 2:45 PM EDT ?? With: Adrianne Campbell Where: [facility] Status: Pending Saturday 2:45 PM EDT ?? With: Adrianne Campbell Where: [facility] Status: Pending 2024 1:45 PM EDT ?? With: Karina Ellington Where: [facility] Adult [facility] Status: Pending 2024 10:30 AM EDT ?? With: Torito Gudino MD Where: [facility] [address] [facility] [address] [place] [address]- Status: Pending Hospital Course ??53-year-old male with past medical history of TBI as a child, epilepsy, left spastic hemiaplasia,depression, constipation, who presents to the emergency department today after being found down, likely due to seizure, found to be hypernatremic ?? Hypernatremia (E87.0):??Patient found to be significantly hyponatremic with sodium 160 Renal consulted saw the patient and recommended D5W 125cc/hr cr now normal pt is??drinking adequately unclear if sz cause??hypernatremia? Seizure (R56.9) Syncope and collapse (R55) ? Likely seizure, patient reports last seizure was over a month ago pt missed??1 dose of medication or hypernatremia may have caused seizure neuro consulted no changed to meds currently ?? Epilepsy and recurrent seizures (G40.909) Left spastic hemiplegia (G81.14) ? Continue home lacosamide 300 mg twice daily, phenytoin 200 mg twice daily Continue home tizanidine 4 mg 3 times daily for spasticity ?? pt is feeling well and eager to return home. sister Dalila updated via phone. Objective Vital Signs?? Temperature: 98.3 DegF (09/09/24 10:03:00) Temperature Route: Oral (09/09/24 10:03:00) Pulse Rate: 60 bpm (09/09/24 10:03:00) Respiratory Rate: 18 br/min (09/09/24 10:03:00) Systolic Blood Pressure: 119 mm Hg (09/09/24 10:03:00) Diastolic Blood Pressure: 71 mm Hg (09/09/24 10:03:00) Blood pressure sites: Arm, right (09/09/24 10:03:00) Mean Arterial Pressure: 87 mm Hg (09/09/24 10:03:00) Pulse Pressure: 48 mm Hg (09/09/24 10:03:00) Oxygen Saturation: 97 % (09/09/24 10:03:00) Mode of Delivery (Oxygen): Room air (09/09/24 10:03:00) Early Warning Score: 0 (09/09/24 10:04:24) ? . Physical Exam General:??NAD Head:??NCAT Eyes:??EOMI Ear, Nose and Throat:??MMM Respiratory:??CTA Cardiovascular:RRR Gastrointestinal:??soft nt nd Neurologic :alert and oriented ?? Consultants renal neurology Pending Results Add On Lab Order ordered on 09/08/2024 Add On Lab Order ordered on 09/08/2024 Add On Lab Order ordered on 09/08/2024 Basic Metabolic Panel ordered on 09/08/2024 Lacosamide Level ordered on 09/08/2024 Follow-Up Appointments Added Follow Up ?Time Frame ?Comments Wayne MENDOZA, Aquilino Bateman Home [facility] Face to Face ^HomeHealthFTF Results Discharge Labs BLOOD COUNT & DIFF WBC 12.1 k/mm3 (High)?? 09/09/2024 03:12 RBC 4.39 m/mm3 (Low)?? 09/09/2024 03:12 Hgb 13.7 Gm/dL ()?? 09/09/2024 03:12 Hct 40.2 % (Low)?? 09/09/2024 03:12 MCV 91.6 femtoliters ()?? 09/09/2024 03:12 MCH 31.2 pg ()?? 09/09/2024 03:12 MCHC 34.1 Gm/dL ()?? 09/09/2024 03:12 Platelet Count 252 k/mm3 ()?? 09/09/2024 03:12 RDW-SD 46.2 femtoliters ()?? 09/09/2024 03:12 MPV 10.3 femtoliters ()?? 09/09/2024 03:12 Nucleated RBC (Automated) 0.0 #/100 WBC'S ()?? 09/09/2024 03:12 Abs. NRBC 0.0 k/mm3 ()?? 09/09/2024 03:12 Abs. Neut 5.0 k/mm3 ()?? 09/08/2024 16:20 Abs. Lymph 4.1 k/mm3 (High)?? 09/08/2024 16:20 Abs. [place] 0.8 k/mm3 ()?? 09/08/2024 16:20 Abs. Eo 0.7 k/mm3 (High)?? 09/08/2024 16:20 Abs. Baso 0.1 k/mm3 ()?? 09/08/2024 16:20 Neut % 47.1 % ()?? 09/08/2024 16:20 Lymph % 38.4 % ()?? 09/08/2024 16:20 [place] % 7.1 % ()?? 09/08/2024 16:20 Eos % 6.6 % (High)?? 09/08/2024 16:20 Baso % 0.6 % ()?? 09/08/2024 16:20 Imm Gran 0.2 % ()?? 09/08/2024 16:20 Abs. Imm Gran 0.0 k/mm3 ()?? 09/08/2024 16:20 ?? CARDIAC CK, Total 80 units/L ()?? 09/08/2024 16:20 High Sensitivity Troponin (HSTnT) 9 ng/L ()?? 09/08/2024 16:20 ?? CHEM GENERAL Sodium 139 mmol/L ()?? 09/09/2024 03:12 Potassium 3.7 mmol/L ()?? 09/09/2024 03:12 Chloride 107 mmol/L ()?? 09/09/2024 03:12 Bicarbonate Level 24 mmol/L ()?? 09/09/2024 03:12 Anion Gap 8 mmol/L ()?? 09/09/2024 03:12 Glucose Level 97 mg/dL ()?? 09/09/2024 03:12 Beta Hydroxybutyrate <0.05 mmol/L ()?? 09/08/2024 16:20 BUN 8 mg/dL ()?? 09/09/2024 03:12 Creatinine-Blood 0.58 mg/dL (Low)?? 09/09/2024 03:12 Estimated GFR Creatinine 118 ML/MIN/1.73 M2 ()?? 09/09/2024 03:12 Calcium 8.2 mg/dL (Low)?? 09/09/2024 03:12 Calcium, Ionized pH Corrected 1.17 mmol/L ()?? 09/08/2024 16:20 Magnesium 1.9 mg/dL ()?? 09/09/2024 03:12 Protein, Total 5.7 Gm/dL (Low)?? 09/08/2024 16:20 Albumin 3.5 Gm/dL ()?? 09/08/2024 16:20 AG Ratio 1.6 ()?? 09/08/2024 16:20 Alkaline Phosphatase 68 units/L ()?? 09/08/2024 16:20 AST (SGOT) 16 units/L ()?? 09/08/2024 16:20 ALT (SGPT) 15 units/L ()?? 09/08/2024 16:20 Bilirubin, Total <0.2 mg/dL ()?? 09/08/2024 16:20 Lactate 0.7 mmol/L ()?? 09/08/2024 19:35 ? TOXICOLOGY/TDM Ethanol, Serum or Plasma NONE DETECTED mg/dL ()?? 09/08/2024 16:20 Dilantin Level 7.4 mg/L (Low)?? 09/08/2024 16:20 Salicylate Level <0.3 mg/dL (Low)?? 09/08/2024 16:20 Acetaminophen Level <5 mg/L (Low)?? 09/08/2024 16:20 ?? URINE OTHER Osmolality, Urine Random 269 mOsm/kg ()?? 09/08/2024 17:51 ? _35 ??minutes spent on discharge * Loraine Chavez RN: PERFORM Event Display: Patient Education/Instruction Authored Date: [id number] Inpatient Adult Discharge Instructions. [address] [address] Name: WYATT EWING : 1970?? Visit: 09/08/2024 20:19?? Current Date: 09/09/2024 13:42 ?? Account: [id number]?? Inpatient Adult Discharge Instructions We would like to thank you for allowing us to assist you with your healthcare needs. The following includes patient education materials and information regarding your injury/illness. Our entire staffstrives to provide an excellent experience for our patients and their families. PLEASE ENSURE YOU FOLLOW-UP PER THE INSTRUCTIONS BELOW! ?? YOUR OPINION IS IMPORTANT TO US! Please complete the survey you may receive by mail or email. Your feedback will be used to make improvements to the healthcare experiences of our patients and their families. Surveys are administered by [employer] ?? If further treatment with your primary care physician or another doctor is recommended, it is important for you to keep the appointment. Call your primary care physician or return to the Emergency Department immediately if your condition worsens, fails to improve, or new symptoms develop. If you need to find a doctor, you can call [facility] Link for a referral at [phone] or toll free at [phone] ([phone]) or log in to [email or web address].. ?? [facility], in keeping with [facility] guidance, no longer requires face masks for staff, patientsor visitors in most situations. Similiar to time spent indoors at other locations, there is the chance that you were exposed to repiratory viruses during your time with us (such as flu or COVID-19). If you develop symptoms concerning for a viral respiratory infection, please seek testing (and treatment if indicated) from your medical provider or home test kit. ?? You can view and manage your care through the patient portal or by using a health care madhu of your choosing. [employer] is a website that allows you to securely view your medical information including your hospital discharge summary, office visit summaries, medications and follow-up visits. You can also request appointments, renew medications, and request access to your medical information using a health care madhu of your choosing, or just ask a question. You are entitled to know the individuals who participated in your treatment. This information is available within your medical record and will be provided upon your request. You can enroll at [email or web address] or register d uring your next office visit. You have been discharged from [facility], Patient Care Unit: D3B??. If you have any questions regarding these instructions, including results of studies pending, afteryou leave, please call us and we will be happy to assist you 12/11. [facility] Your Care Team Attending Physician Dennis DO, Allie S?? Consulting Providers Dennis DO, Allie S?? Discharging Providers Dennis DO, Allie Bateman Reason for Your Visit Seizure?? Your Diagnosis Hypernatremia Hyponatremia Seizure Syncope and collapse Epilepsy and recurrent seizures Left spastic hemiplegia Traumatic brain injury Depression Tests Performed Below is a partial list of the tests performed during your hospitalization. You may have had other tests and procedures not included in this list. Please discuss all test results with your provider. ACETAMINOPHEN Basic Metabolic Panel BETA HYDROXYBUTYRATE Calcium Ionized CBC CBC w/ Differential CK,TOTAL ONLY Comprehensive Metabolic Panel ETHANOL Lactate Level Magnesium Level Phenytoin Total Level SALICYLATE Sodium Level Troponin T, High Sensitivity Urine Osmolality CT Cervical Spine W/O Contrast CT Head/Brain W/O Contrast Acetaminophen Level (ACETAMINOPHEN)?? Add On Lab Order?? Basic Metabolic Panel?? Beta Hydroxybutyrate?? CBC?? CBC w/ Differential?? CPK Total Only (CK,TOTAL ONLY)?? CT Cervical Spine W/O Contrast?? CT Head/Brain W/O Contrast?? Comprehensive Metabolic Panel?? Ethanol Level (ETHANOL)?? High??Sensitivity??Troponin T (Troponin T, High Sensitivity)?? Ionized Calcium (Calcium Ionized)?? Lacosamide Level?? Lactic Acid Level (Lactate Level)?? Magnesium Level?? Osmolality Urine (Urine Osmolality)?? Phenytoin Total Level?? Salicylate Level (SALICYLATE)?? Sodium Level?? Primary Care Provider Aquilino Black MD? Advance Directive Health Care Proxy on File Yes - Health Care Proxy Discharge Vitals Temperature: 98.3 DegF Weight: 54.6 kg Pulse Rate: 60 bpm ?? Respiratory Rate: 18 br/min ?? Systolic Blood Pressure: 119 mm Hg ?? Diastolic Blood Pressure: 71 mm Hg ?? Oxygen Saturation: 97 % ?? Studies Pending All studies ordered during this hospital stay have been completed unless listed below. Please discuss all pending results with your provider listed above in these instructions. ?? Add On Lab Order?? Basic Metabolic Panel?? Lacosamide Level?? What to do next Instructions From Your Doctor ?? Orders? 09/09/24 11:19:00 EDT?? Scheduled Follow-Up Appointments 2024 2:45 PM EDT ?? With: Adrianne Campbell Where: Rehab Adult Aud Status: Pending Saturday 2:45 PM EDT ?? With: Adrianne Campbell Where: Rehab Adult Aud Status: Pending 2024 1:45 PM EDT ?? With: Karina Ellington Where: Rehab Adult Aud Status: Pending 2024 10:30 AM EDT ?? With: Torito Gudino MD Where: [facility] [address] [facility] [address] [place] [address]- Status: Pending You Need to Schedule the Following Appointments Follow Up with??Wayne MENDOZA, Aquilino Bateman Where: [address] [place] [address] [address] [place] [address]- Discharge Medications WYATT EWING :1970 Visit Date:09/08/2024 Medications: Please continue your medications until treatment is completed or stopped by your provider. Medications not listed below should be discontinued. Discuss any questions related to medications with your provider. What How Much When Instructions Next Dose Changed Sertraline (sertraline 100 mg oral tablet) 1 tab(s) Oral Daily Tomorrow AM Changed linaclotide (Linzess 290 mcg oral capsule) 1 capsule Oral Daily Resume home schedule Unchanged Durable Medical Equipment (L carbon fiber AFO) See instructions Dx: Spastic left HP ?? -- Unchanged Durable Medical Equipment (Left carbon fiber AFO) See instructions Dx: TBI / ??left hemiplegia ?? -- Unchanged Durable Medical Equipment (Left shoe/ heel lift) See instructions Dx: TBI, LLD ?? -- Unchanged Durable Medical Equipment (Repair Left AFO Straps) See instructions Dx: Spastic left HP ?? -- Unchanged Ergocalciferol (Vitamin D 30179 iu oral capsule) 50,000 International Unit Oral Every week Resume home schedule Unchanged Folic Acid (folic acid 1 mg oral tablet) 1 tab(s) Oral Daily Tomorrow AM Unchanged Lacosamide (lacosamide 150 mg oral tablet) 300 Milligram Oral Twice a day Tonight, 9PM Unchanged Phenytoin (phenytoin 100 mg oral capsule, extended release) 200 Milligram Oral Twice a day Tonight, 9PM Unchanged Psyllium (Reguloid 400 mg oral capsule) See instructions 1 capsule By Mouth ?? Resume home schedule Unchanged Senna (Senna-Time 8.6 mg oral tablet) TAKE 17.2 MG (2 X 8.6 MG) BEDTIME FOR CONSTIPATION ?? Tonight, 9PM Unchanged Tizanidine (tiZANidine 4 mg oral tablet) 1 tab(s) Oral 3 times a day Tonight, 9PM ?? What How Much When Comments Stop Taking Oxycodone / Acetaminophen (acetaminophen-oxyCODONE 325 mg-5mg oral tablet) 1 tab(s) Oral Every 4 hours as needed for Pain , Mild Pain , Moderate Stop Taking plecanatide (Trulance 3 mg oral tablet) TAKE 1 TABLET BY MOUTH EVERY DAY ?? Stop Taking PredniSONE (predniSONE 20 mg oral tablet) 1 tab(s) Oral Daily in the morning Duration: 7 Days Prescription Given During Visit No new medications prescribed at time of discharge.?? Laboratory Results Below is a partial list of the most recent Laboratory test results done prior to this discharge. You may have had other tests and procedures not included in this list. Please discuss all test resultswith your provider. ACETAMINOPHEN (09/08/2024) ? ?Acetaminophen Level - <5 mg/L Basic Metabolic Panel (09/09/2024) ???Sodium - 139 mmol/L???Potassium - 3.7 mmol/L???Chloride - 107 mmol/L???Bicarbonate Level - 24 mmol/L???Anion Gap - 8 mmol/L???Glucose Level - 97 mg/dL???BUN - 8 mg/dL???Creatinine-Blood - 0.58 mg/dL???Estimated GFR Creatinine - 118 ML/MIN/1.73 M2???Calcium - 8.2 mg/dL BETA HYDROXYBUTYRATE (09/08/2024) ? ?Beta Hydroxybutyrate - <0.05 mmol/L Calcium Ionized (09/08/2024) ???Calcium, Ionized pH Corrected - 1.17 mmol/L CBC (09/09/2024) ???WBC - 12.1 k/mm3???RBC - 4.39 m/mm3???Hgb - 13.7 Gm/dL???Hct - 40.2 %???MCV - 91.6 femtoliters???MCH - 31.2 pg???MCHC - 34.1 Gm/dL???Platelet Count - 252 k/mm3???RDW-SD - 46.2 femtoliters???MPV - 10.3 femtoliters???Nucleated RBC (Automated) - 0.0 #/100 WBC'S???Abs. NRBC - 0.0 k/mm3 CBC w/ Differential (09/08/2024) ???WBC - 10.6 k/mm3???RBC - 4.66 m/mm3???Hgb - 14.8 Gm/dL???Hct - 42.7 %???MCV - 91.6 femtoliters???MCH - 31.8 pg???MCHC - 34.7 Gm/dL???Platelet Count - 250 k/mm3???RDW-SD - 46.4 femtoliters???MPV - 11.4 femtoliters???Nucleated RBC (Automated) - 0.0 #/100 WBC'S???Abs. NRBC - 0.0 k/mm3???Abs. Neut -5.0 k/mm3???Abs. Lymph - 4.1 k/mm3???Abs. [place] - 0.8 k/mm3???Abs. Eo - 0.7 k/mm3???Abs. Baso - 0.1 k/mm3???Neut % - 47.1 %???Lymph % - 38.4 %???[place] % - 7.1 %???Eos % - 6.6 %???Baso % - 0.6 %???Imm Gran - 0.2 %???Abs. Imm Gran - 0.0 k/mm3 CK,TOTAL ONLY (09/08/2024) ???CK, Total - 80 units/L Comprehensive Metabolic Panel (09/08/2024) ???Sodium - 160 mmol/L???Potassium - 3.5 mmol/L???Chloride - 81 mmol/L???Bicarbonate Level - 19 mmol/L???Anion Gap - 60 mmol/L???Glucose Level - 82 mg/dL???BUN - 7 mg/dL???Creatinine-Blood - 0.54 mg/dL???Estimated GFR Creatinine - 121 ML/MIN/1.73 M2???Calcium - 7.2 mg/dL???Protein, Total - 5.7 Gm/dL???Albumin - 3.5 Gm/dL???AG Ratio - 1.6???Alkaline Phosphatase - 68 units/L???AST (SGOT) - 16 units/L? ?ALT (SGPT) - 15 units/L? ?Bilirubin, Total - <0.2 mg/dL ETHANOL (09/08/2024) ???Ethanol, Serum or Plasma - NONE DETECTED Lactate Level (09/08/2024) ???Lactate - 0.7 mmol/L Magnesium Level (09/09/2024) ???Magnesium - 1.9 mg/dL Phenytoin Total Level (09/08/2024) ???Dilantin Level - 7.4 mg/L SALICYLATE (09/08/2024) ? ?Salicylate Level - <0.3 mg/dL Sodium Level (09/08/2024) ???Sodium - 151 mmol/L Troponin T, High Sensitivity (09/08/2024) ???High Sensitivity Troponin (HSTnT) - 9 ng/L Urine Osmolality (09/08/2024) ???Osmolality, Urine Random - 269 mOsm/kg You will be contacted within 72 hours with your results. Allergies (NKA means No Known Allergies) NKA Problems Active Problems??(8) Depression?? Epilepsy and recurrent seizures?? Left spastic hemiplegia?? Pressure ulcer stage I?? Pressure ulcer, other site?? Spasticity?? Therapeutic drug monitoring?? Traumatic brain injury?? Education Materials Below is the list of Educational Leaflet Providered with your Discharge Instructions. Valuables and Belongings I fully understand and agree that [facility] accepts no responsibility for all my personal property including clothing, toilet articles, radios, jewelry, dentures, hearing aids, rings, money, or any other property that is in my possession or is brought to me after admission. I understand certain valuables may be placed in a hospital safe for a short period of time. I understand that the hospital is not liable for loss or damage due to accident, fire, or other natural occurrence while said property is in the safe. I accept full responsibility for any personal property that I keep with me, and will not hold the hospital responsible in case of loss or disappearance. I acknowledge that i have been encouraged to send valuables and belongings home. ?? Review of Valuable and Belonging List: With patient Date for Pt to Sign Valuables/Belongings: 09/08/24 21:19:00 ?? Other Discharge Information ? Pulmonary Rehab Status?? Pulmonary Rehab Discharge Status?? Respiratory Rate: 18 br/min ? Common Emergency Awareness Tips IS IT A STROKE? Act FAST and Check for these signs: FACE Does the face look uneven? ARM Does one arm drift down? SPEECH Does their speech sound strange? TIME Call at any sign of stroke ?? Heart Attack Signs Chest discomfort: Most heart attacks involve discomfort in the center of the chest and lasts more than a few minutes, or goes away and comes back. It can feel like uncomfortable pressure, squeezing, fullness or pain. Discomfort in upper body: Symptoms can include pain or discomfort in one or both arms, back, neck, jaw or stomach. Shortness of breath: With or without discomfort. Other signs: Breaking out in a cold sweat, nausea, or lightheaded. Remember, MINUTES DO MATTER. If you experience any of these heart attack warning signs, call to get immediate medical attention! ?? Smoking can increase your chances of developing chronic health problems and can cause harmful effects to other family members in your house. If you smoke, you are strongly encouraged to quit. Please call [facility] at [phone] or [phone] ([phone]) or log in to [email or web address] for referrals to smoking cessation programs. ?? 988 Suicide & Crisis Lifeline is available 12/11 if you or someone you know needs to find a reason to keep living. By calling 928 you'll be connected to a skilled, trained counselor at a crisis center in your area. INPATIENT DISCHARGE INSTRUCTIONS SIGNATURE PAGE WYATT EWING Location:[facility] Registration Date and Time:09/08/2024 20:19 EDT Primary Care Physician: Wayne MENDOZA, Aquilino S, Attending Physician: Allie Collins DO, I WYATT EWING, have received the above patient education materials/instructions and have verbalized understanding. If ambulance or transport services are being used I further acknowledge being given a choice of service. ?? If you need to contact me, please call me at this number: . 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 Name: 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 Signature: Relationship to Patient: Witness Name/Signature: Date: Patient Care team information Care Team Personnel Name: Nyasia RN, Martita Sanchez Position: S RN Member Role: Primary Care Nurse Name: Aquilino Black MD Position: Reference Physician Member Role: PCP Address: [address] [place] [address] Drive [address] [place], [place] [address] Telecom: Name: Roseann Lassiter RN Position: S RN Member Role: Primary Care Nurse Name: Loraine Chavez RN Position: S RN Member Role: Primary Care Nurse Name: Dee Gomez RN Position: S RN Member Role: Primary Care Nurse Name: Adamaris Moon Position: [facility] RN Member Role: Primary Care Nurse Name: Nakita Diaz RN Position: [facility] RN Member Role: Primary Care Nurse Name: Ariel Valadez MD Position: [facility] Renal MD Member Role: Lifetime Consulting Physician Address: [address] [facility] [address] Telecom: Name: David Russell MD Position: [facility] Renal MD Member Role: Lifetime Consulting Physician Address: [address] [facility] [address] Telecom: Care Team Related Persons Name: JUSTO Arias NAKIA SOMMERS Name: DALILA KEMP Insurance Providers Guarantor name: [facility] Information #: 1 Payer: [employer] Member Number: [id number] Policy Number: NA Group Number: [facility] Health Plan Information #: 2 Payer: [employer] Member Number: [id number] Policy Number: NA Group Number: NA
[2024-09-11 10:59] LABS: Phenytoin Dilantin 17.7 ug/mL (10.0-20.0)
--- NOTE | 2024-09-11 13:11 | PC.NURSE ---
Dalila on phone. States that baseline ambulation is completely steady.
--- NOTE | 2024-09-11 13:21 | MHC.EDTECH ---
this pct ambulated patient to commode , patient was unstable and tripped and felt weak . i moved the patient back to the bed and informed the provider.
[2024-09-11] MEDS: Meclizine HCl 25 MG TABLET PO (13:31)
[2024-09-11] MEDS: 0.9 % Sodium Chloride 1,000 ML 999 ML IV (13:31)
--- NOTE | 2024-09-11 15:43 | MHC.EDTECH ---
This pct assumed care of Patient at 1500 ,vitals taken ,Orthostatics vitals taken ,Patient belongings list done ,This pct attempted to walk Patient ,but Patient felt dizzy and unsteady ,Provider aware ,fluids Offer ,Patient drank 60 ml Desha juice .
--- NOTE | 2024-09-11 15:52 | PC.NURSE ---
Tech was unable to successfully ambulate patient for the 2nd time. provider and family aware.
--- NOTE | 2024-09-11 16:08 | MHC.CM.ED ---
Received case management consult from Noris FIGUEROA. Patient came to the ER due to a seizure. Work up was essentially negative. Staff attempted to ambulate patient 3 times without success. Physical therapy eval ordered and pending. Met with patient to discuss discharge planning. Patient lives with his sister. Patient originally declining STR. But is agreeable to waiting for PT eval theapy and verbalizes understanding that if he is unable to safely ambulate STR will be needed. Referral broadcasted within 15 miles of patient's home at this time. Continue to monitor for d/c needs.
--- NOTE | 2024-09-11 16:11 | PC.NURSE ---
SIster, Dalila, is aware of plan for PT/CM.
--- NOTE | 2024-09-11 16:59 | PC.NURSE ---
moved to hospital bed. able to transfer but needed assist. moving all extremities. axox3. aware ofplan for PT/CM.
[2024-09-11 18:05] LABS: Influenza A PCR NEGATIVE (Negative); Influenza B PCR NEGATIVE (Negative); Resp Syncy Virus RNA Qual PCR NEGATIVE (Negative); SARS COV2 PCR INHOUSE NEGATIVE (Negative)
--- NOTE | 2024-09-11 18:11 | PHA.MEDREC ---
Pharmacy Consult ? Medication Reconciliation Pharmacy has completed the medication reconciliation. Med rec completed by nursing and reviewed by pharmacy, matches claim history
[2024-09-11 18:40] LABS: Amphetamine Screen Urine Not Detected (Not Detect); Barbiturates, Urine Not Detected (Not Detect); Benzodiazepines Screen Urine Not Detected (Not Detect); Buprenorphine Scr Not Detected (Not Detect); Cannabinoid Screen Urine Not Detected (Not Detect); Cocaine Screen Urine Not Detected (Not Detect); Fentanyl, urine Not Detected (Not Detect); Methadone Screen, Urine Not Detected (Not Detect); Opiate Screen Urine Not Detected (Not Detect); Oxycodone Screen Urine Not Detected (Not Detect); Phencyclidine Screen Urine Not Detected (Not Detect)
--- NOTE | 2024-09-11 18:46 | MHC.EDTECH ---
Patient was set up with dinner ,food cut up ,Patient ate 100 % of meal and drank 360 ml fluids ,Patient void 1000 ml urine ,KWON screen collected and sent to lab .Patient watching television ,no apparent distress noted .All safety measure in Place .
[2024-09-11] MEDS: clonazePAM 0.5 MG TABLET PO (20:37)
[2024-09-11] MEDS: TiZANidine HCL 4 MG TABLET PO (20:37)
[2024-09-11] MEDS: Phenytoin Sodium Extended 100 MG CAPSULE 200 MG PO (20:37)
[2024-09-11] MEDS: Lacosamide 100 MG TABLET 300 MG PO (20:38)
[2024-09-11] MEDS: Nicotine 21 MG PATCH.TD24 TRANSDERMA (20:38)
[2024-09-11] MEDS: Sennosides 8.6 MG TABLET 17.2 MG PO (20:38)
[2024-09-11] MEDS: Sertraline HCL 100 MG TABLET PO (20:38)
--- NOTE | 2024-09-12 01:12 | MHC.EDTECH ---
0000 Rounding done ,Patient awake ,Snacks and fluids offer ,Patient drank some genie katharine .
[2024-09-12] MEDS: TiZANidine HCL 4 MG TABLET PO ×3 (02:02→18:21)
[2024-09-12 06:29] VITALS: BP 111/83; PULSE 65; RESP 16; TEMP 36.3; O2SAT 97
--- NOTE | 2024-09-12 07:39 | PC.NURSE ---
assumed care of pt at 0700, a&ox4, vss, assisted w cutting up breakfast, eating independently. pt pending PT eval. no new orders at this time.
[2024-09-12 09:44] VITALS: BP 137/90; PULSE 65
[2024-09-12] MEDS: Ergocalciferol (Vitamin D2) 1,250 MCG CAPSULE 1250 MCG PO (09:44)
[2024-09-12] MEDS: calcium polycarbophiL TABLET 1 TAB PO (09:44)
[2024-09-12] MEDS: Phenytoin Sodium Extended 100 MG CAPSULE 200 MG PO ×2 (09:45→21:17)
[2024-09-12] MEDS: Folic Acid 1 MG TABLET PO (09:45)
[2024-09-12] MEDS: Lacosamide 100 MG TABLET 300 MG PO ×2 (09:45→21:17)
--- NOTE | 2024-09-12 10:17 | PC.NURSE ---
pt medicated per JUN for 4/10 left shoulder pain. ate 100% of breakfast. water pitcher at bedside refilled. 230ml urine emptied from urinal. denies any needs at this time.
--- NOTE | 2024-09-12 10:38 | MHC.CM.PN ---
Addendum entered by Jadyn Alcocer RN 09/12/24 12:44: CM MET W/PT AT BEDSIDE, PT AGREEABLE TO STR AND ONLY PREFERENCE IS LOCAL FACILITY, [facility] AND WILL SUBMIT FOR AUTH HOWEVER IT WILL LIKELY NOT BE AUTHED UNTIL SATURDAY AFTER HOLIDAY W/E. Original Note: EMR REVIEWED, P.T. RECOMMENDING STR, REF UPDATED, CM WILL FOLLOW UP W/PT AT BEDSIDE, PT WILL LIKELY REMAIN IN ED THROUGH SATURDAY D/T NEED FOR INSURANCE AUTH.
--- NOTE | 2024-09-12 10:59 | PC.NURSE ---
sister at bedside, reporting concern that pt overdosed on Dilantin. per pt he is unable to open medications independently and is given his medications by his sister. blood work was WNL. provider aware and pt denies overdose/SI/HI. rec STR by PT. case management to update family.
[2024-09-12 13:58] VITALS: BP 114/75; PULSE 87; RESP 13; O2SAT 100
[2024-09-12 14:30] VITALS: BP 110/70; PULSE 72; RESP 14; TEMP 36.2; O2SAT 100
[2024-09-12] MEDS: PT OWN (Linaclotide [Linzess] 290 mcg capsule) 290 EACH PO (15:23)
--- NOTE | 2024-09-12 15:25 | PC.NURSE ---
sister brought in Linzess for pt - medicated per JUN. vss, ate 100% of lunch, denies any needs at this time.
--- NOTE | 2024-09-12 19:35 | PC.NURSE ---
this rn assumed care of pt, pt resting in stretcher, no acute distress noted. dinner at bedside.
[2024-09-12] MEDS: clonazePAM 0.5 MG TABLET PO (21:17)
[2024-09-12] MEDS: Sennosides 8.6 MG TABLET 17.2 MG PO (21:17)
[2024-09-12] MEDS: Sertraline HCL 100 MG TABLET PO (21:17)
--- NOTE | 2024-09-12 21:20 | PC.NURSE ---
Pt a&ox4, no signs of distress Pt denies pain at this time Pt assisted to sit up in bed Pt medicated per mar Plan of care ongoing.
[2024-09-13] VITALS: BP 127/73; PULSE 59; RESP 16; TEMP 37.1; O2SAT 96
[2024-09-13 02:02] VITALS: BP 110/64; PULSE 54; RESP 17; TEMP 36.9; O2SAT 94
[2024-09-13 06:32] VITALS: BP 122/71; PULSE 57; RESP 14; O2SAT 97
[2024-09-13] MEDS: Acetaminophen 325 MG TABLET 650 MG PO (08:19)
[2024-09-13] MEDS: Phenytoin Sodium Extended 100 MG CAPSULE 200 MG PO ×2 (08:20→21:32)
[2024-09-13] MEDS: Folic Acid 1 MG TABLET PO (08:21)
[2024-09-13] MEDS: Lacosamide 100 MG TABLET 300 MG PO ×2 (08:21→21:32)
[2024-09-13] MEDS: PT OWN (Linaclotide [Linzess] 290 mcg capsule) 290 EACH PO (09:49)
[2024-09-13] MEDS: calcium polycarbophiL TABLET 1 TAB PO (09:49)
--- NOTE | 2024-09-13 09:58 | PC.NURSE ---
Assumed care of pt this AM, he is NAD, a&ox4 though reoriented to plan for STR referral, delayed insurance approval with long weekend expected. Ate 100% of breakfast. Endorsing mild L shoulder pain, given tylenol PRN. Awaiting modified walker from home.
[2024-09-13] MEDS: TiZANidine HCL 4 MG TABLET PO ×2 (11:44→19:01)
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
[2024-09-13 11:59] VITALS: BP 138/96; PULSE 63; RESP 20; TEMP 36.7; O2SAT 98
[2024-09-13 16:00] VITALS: BP 180/93; PULSE 69; RESP 20; TEMP 36.7; O2SAT 98
[2024-09-13 17:55] VITALS: BP 137/88; PULSE 62; RESP 18; TEMP 36.7; O2SAT 99
[2024-09-13] MEDS: Sennosides 8.6 MG TABLET 17.2 MG PO (21:32)
[2024-09-13] MEDS: clonazePAM 0.5 MG TABLET PO (21:32)
[2024-09-13] MEDS: Sertraline HCL 100 MG TABLET PO (21:33)
--- NOTE | 2024-09-14 00:01 | PC.NURSE ---
Assumed care of this Pt at 2300.
[2024-09-14 00:55] VITALS: BP 104/67; PULSE 54; RESP 16; O2SAT 97
[2024-09-14 05:59] VITALS: BP 128/93; PULSE 63; RESP 16; TEMP 36.6; O2SAT 98
[2024-09-14] MEDS: Folic Acid 1 MG TABLET PO (07:57)
[2024-09-14] MEDS: Phenytoin Sodium Extended 100 MG CAPSULE 200 MG PO ×2 (07:57→20:14)
[2024-09-14] MEDS: Lacosamide 100 MG TABLET 300 MG PO ×2 (07:58→20:14)
[2024-09-14] MEDS: PT OWN (Linaclotide [Linzess] 290 mcg capsule) 290 EACH PO (08:10)
--- NOTE | 2024-09-14 08:24 | MHC.EDTECH ---
Patient ate 100% of breakfast. Patient positioned for comfort. Call rivera placed within reach. Patient states he is comfortable. Safety measures in place.
--- NOTE | 2024-09-14 08:24 | PC.NURSE ---
patient a&ox3, vss, denies pain/discomfort, sitting at bedside eating breakfast, took pills whole with water, lungs diminished, call rivera within reach, plan of care ongoing
--- NOTE | 2024-09-14 08:45 | PC.NURSE ---
missing med was brought from pharmacy.
[2024-09-14] MEDS: calcium polycarbophiL TABLET 1 TAB PO (08:47)
[2024-09-14] MEDS: TiZANidine HCL 4 MG TABLET PO ×2 (11:29→20:14)
--- NOTE | 2024-09-14 11:30 | PC.NURSE ---
pt states I hate to rate pain, its hard 3/10 pain to lt shoulder, pt medicated per order, plan of care ongong
--- NOTE | 2024-09-14 13:39 | MHC.CM.ED ---
[facility].
[2024-09-14 14:06] VITALS: BP 130/81; PULSE 62; RESP 16; O2SAT 98
[2024-09-14] MEDS: Sertraline HCL 100 MG TABLET PO (20:14)
[2024-09-14] MEDS: Sennosides 8.6 MG TABLET 17.2 MG PO (20:14)
[2024-09-14] MEDS: clonazePAM 0.5 MG TABLET PO (20:15)
[2024-09-14 20:17] VITALS: BP 145/89; PULSE 68; RESP 15; O2SAT 98
[2024-09-15] MEDS: TiZANidine HCL 4 MG TABLET PO ×2 (04:35→10:05)
[2024-09-15 06:14] VITALS: BP 128/77; PULSE 56; RESP 16; O2SAT 97
--- NOTE | 2024-09-15 07:44 | PC.NURSE ---
assumed care of pt approx 0700, resting comfortably in bed with no apparent s/s of distress. Meal set up for breakfast, awaiting transfer to overflow unit.
[2024-09-15 07:54] VITALS: BP 132/81; PULSE 66; RESP 12; TEMP 36.4; O2SAT 98
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
[2024-09-15] MEDS: Phenytoin Sodium Extended 100 MG CAPSULE 200 MG PO (10:05)
[2024-09-15] MEDS: Folic Acid 1 MG TABLET PO (10:05)
[2024-09-15] MEDS: Lacosamide 100 MG TABLET 300 MG PO (10:14)
--- NOTE | 2024-09-15 10:23 | PC.NURSE ---
Case management at the bedside
[2024-09-15] MEDS: calcium polycarbophiL TABLET 1 TAB PO (10:32)
[2024-09-15] MEDS: PT OWN (Linaclotide [Linzess] 290 mcg capsule) 290 EACH PO (10:46)
--- NOTE | 2024-09-15 11:00 | MHC.CM.ED ---
Patient remains in ER overflow. Insurance auth obtained by [facility]. Patient can leave at 1pm. Yael PAUL booked. Med [facility] with chart. Patient, Jeana LARRY and Belen BALLARD aware. Continue to monitor for d/c needs.
[2024-09-15 13:46] VITALS: BP 132/81; PULSE 66; RESP 12; TEMP 36.4; O2SAT 98
== END 2024-09-15 13:47 ==
PROVIDERS: Emergency Medicine; Physician Assistant Medical; Emergency Provider Emergency Medicine; PCP Internal Medicine
DX: G40.509 Epileptic seizures related to external causes, not intractable, without status epilepticus (principal); Z87.820 Personal history of traumatic brain injury; G81.94 Hemiplegia, unspecified affecting left nondominant side; M62.81 Muscle weakness (generalized); M54.2 Cervicalgia; E78.5 Hyperlipidemia, unspecified; F17.210 Nicotine dependence, cigarettes, uncomplicated; Z03.818 Encounter for observation for suspected exposure to other biological agents ruled out; Z79.899 Other long term (current) drug therapy
CPT/HCPCS: 0241U; 36415; 70450; 71045; 80053; 80185; 80307; 82947; 85025; 93005; 96361; 96365; 97162; 99285; J1953

== ENCOUNTER → 2024-09-11 08:24 | Outpatient (BNV) | payer OTHER, SELFPAY | PROVIDERS: Emergency Provider Emergency Medicine; PCP Internal Medicine; Visit Provider Internal Medicine Cardiovascular Disease | DX: I21.29 ST elevation (STEMI) myocardial infarction involving other sites (principal) | CPT/HCPCS: 93010 ==

== ENCOUNTER → 2024-09-11 09:39 | Outpatient (BNV) | payer OTHER, SELFPAY | PROVIDERS: PCP Internal Medicine; Visit Provider Radiology Diagnostic Radiology | DX: G93.89 Other specified disorders of brain (principal); R56.9 Unspecified convulsions | CPT/HCPCS: 70450; 71045 ==

== ENCOUNTER 2024-10-07 15:32 | Outpatient (AMB) | payer OTHER, SELFPAY ==
[2024-10-07 15:51] VITALS: BP 120/90; PULSE 80; RESP 14; TEMP 37.1; O2SAT 97; BMI 19.0
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
== END 2024-10-07 16:39 | disposition home or self-care (01) ==
LOC: HO.HMCH 15:32
PROVIDERS: PCP Internal Medicine
DX: G40.909 Epilepsy, unspecified, not intractable, without status epilepticus (principal); S06.9X9A Unspecified intracranial injury with loss of consciousness of unspecified duration, initial encounter; I10 Essential (primary) hypertension; M25.512 Pain in left shoulder; R42 Dizziness and giddiness

== ENCOUNTER → 2024-10-07 15:32 | Outpatient (BNVA) | payer OTHER, SELFPAY | PROVIDERS: PCP Internal Medicine | DX: G81.14 Spastic hemiplegia affecting left nondominant side (principal); M25.512 Pain in left shoulder; F32.A Depression, unspecified; K59.00 Constipation, unspecified; G40.909 Epilepsy, unspecified, not intractable, without status epilepticus; I10 Essential (primary) hypertension; R42 Dizziness and giddiness; Z87.820 Personal history of traumatic brain injury; Z79.899 Other long term (current) drug therapy | CPT/HCPCS: 99212 ==

== ENCOUNTER 2024-10-26 16:57 | Outpatient (AMB) | payer OTHER, SELFPAY ==
[2024-10-26 16:58] VITALS: BP 142/98; PULSE 85; O2SAT 95; BMI 19.2
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
== END 2024-10-26 17:23 | disposition home or self-care (01) ==
LOC: HO.HMCH 16:57
PROVIDERS: PCP Internal Medicine; Visit Provider Internal Medicine
DX: G40.909 Epilepsy, unspecified, not intractable, without status epilepticus (principal); G81.14 Spastic hemiplegia affecting left nondominant side; F33.1 Major depressive disorder, recurrent, moderate; I10 Essential (primary) hypertension; S06.9X9S Unspecified intracranial injury with loss of consciousness of unspecified duration, sequela; F17.200 Nicotine dependence, unspecified, uncomplicated

== ENCOUNTER → 2024-10-26 16:57 | Outpatient (BNVA) | payer OTHER, SELFPAY | PROVIDERS: PCP Internal Medicine; Visit Provider Internal Medicine | DX: I10 Essential (primary) hypertension (principal); G40.909 Epilepsy, unspecified, not intractable, without status epilepticus; G81.14 Spastic hemiplegia affecting left nondominant side; F33.1 Major depressive disorder, recurrent, moderate; F17.210 Nicotine dependence, cigarettes, uncomplicated; S06.9X9S Unspecified intracranial injury with loss of consciousness of unspecified duration, sequela; X58.XXXS Exposure to other specified factors, sequela | CPT/HCPCS: 96127; 99212 ==

== ENCOUNTER 2024-11-19 14:58 | Outpatient (REF) | payer OTHER, SELFPAY ==
--- NOTE | ~2024-11-19 | XR_ITS ---
EXAMINATION: XR SHOULDER, LEFT CLINICAL INFORMATION: M25.512 - Pain in left shoulder COMPARISON: Radiographs of the left clavicle on November 19, 2024. Radiographs of the left shoulder on November 02, 2020. TECHNIQUE: AP external rotation, Grashey, scapular Y, and axillary views of the left shoulder. FINDINGS: No acute displaced fracture. Chronic deformity of the left clavicle, sequela from previous trauma. Acromioclavicular joint is intact. Moderate degenerative changes of the glenohumeral joint with joint space narrowing and marginal osteophytes, progressed from 2020. Suboptimal axillary view suggests that the humeral head articulates with the posterior aspect of the glenoid fossa. No abnormal soft tissue calcification. XR/XR shoulder LT min 2V IMPRESSION: 1. Moderate degenerative changes of the glenohumeral joint, progressed from 2020. 2. Chronic deformity of the clavicle. Electronically signed by: Rosy Hunter MD 11/19/2024 04:58 PM EDT
--- OUTSIDE RECORDS SUMMARY | 2024-11-19 15:10 | XMS_ITS | Clinical Summary ---
Author Organization [facility] Address [address] [place] [address] Phone Care Team Providers Care Horse Rider Name Role Phone Aquilino Black MD Primary Care Provider [phone] [phone] Allergies No known active allergies Medications ergocalciferol (DRISDOL) 50,000 unit capsule Take 1 capsule by mouth once a week. 2 Active folic acid (FOLVITE) 1 MG tablet Take 1,000 mcg by mouth daily. 2 Active lacosamide (VIMPAT) 200 mg Tab Take 200 mg by mouth 2 (two) times a day. 2 Active linaCLOtide (LINZESS) 145 mcg Cap Take 145 mcg by mouth. 2 Active CITRUCEL 500 mg Tab Take 500 mg by mouth daily. 2 Active PHENobarbitaL (LUMINAL) 30 MG tablet Take 30 mg by mouth. 2 Active phenytoin (DILANTIN) 100 MG ER capsule Take 200 mg by mouth. 2 Active phenytoin (DILANTIN) 30 MG ER capsule Take 30 mg by mouth. 2 Active plecanatide (TRULANCE) 3 mg tablet TAKE 1 TABLET BY MOUTH EVERY DAY 2 Active senna (SENOKOT) 8.6 mg tablet TAKE 17.2 MG (2 X 8.6 MG) BEDTIME FOR CONSTIPATION 2 Active sertraline (ZOLOFT) 25 MG tablet Take 50 mg by mouth. 2 Active tiZANidine (ZANAFLEX) 4 MG tablet See Instructions, 1 tablet By Mouth morning and 2 tablets at night., # 90 tablet, Refills 5, Tot. Refills 5, Maintenance, 11/09/21 16:46:00 EDT, Instructions Replace Required Details, Route to Pharmacy Electronically, [id number], 170, cm, 0... 2 Active ciprofloxacin HCl (CILOXAN) 0.3 % ophthalmic solution Administer 1 drop, every 2 hours, while awake, for 2 days. Then 1 drop, every 4 hours, while awake, for the next 5 days. 5 mL 2 Active Active Problems Problem Noted Date Diagnosed Date Left spastic hemiplegia 02/25/2022 Spasticity 02/25/2022 Traumatic brain injury 02/25/2022 Epilepsy 07/08/2009 Immunizations Immunization Administration Dates Next Due Influenza Quadrivalent Preservative Free IM 02/20 Social History Tobacco Use Types Packs/Day Years Used Date Smoking Tobacco: Every Day Cigarettes Smokeless Tobacco: Never Tobacco Cessation:Ready to Q uit: Not Asked; Counseling Given: Not Answered Education Answer Date Recorded Are you interested in more education? Not on june e 08/18/2022 Are you concerned about learning? Not on file 08/18/2022 No 08/18/2022 No 08/18/2022 Digital Access Answer Date Recorded No 09/16/2022 No 09/16/2022 No 09/16/2022 Reliable internet access at home? Not on file 09/16/2022 Device with a working camera? Not on file Sex and Gender Information Value Date Recorded Sex Assigned at Not on file Legal Sex Male 9:34 AM EST Gender Identity Not on file Sexual Orientation Not on file Last Filed Vital Signs Vital Sign Reading Time Taken Comments Blood Pressure 137/97 03/04/2022 9:50 AM EST Pulse 72 03/04/2022 9:50 AM EST Temperature 36.5 C (97.7 F) 03/04/2022 9:50 AM EST Respiratory Rate 18 03/04/2022 9:50 AM EST Oxygen Saturation 100% 03/04/2022 9:50 AM EST Inhaled Oxygen Concentration - - Weight 63.5 kg (140 lb) 03/04/2022 9:50 AM EST Height 170.2 cm (5' 7 ) 03/04/2022 9:50 AM EST Body Mass Index 21.93 03/04/2022 9:50 AM EST Plan of Treatment Health Maintenance Due Date Last Done Comments Adult Td,Tdap Booster 1972 LIPID PANEL 1972 DEPRESSION SCREENING 1984 SMOKING Hx and SMOKELESS TOBACCO SCREENING 1985 HEPATITIS C SCREENING 1990 HIV ONE-TIME SCREENING (18-6 5 YEARS) 1990 PNEUMOCOCCAL VACCINES (50+ years) (1 of 2 - PCV) 09/26/1991 COLOGUARD 2017 COLONOSCOPY 2017 COLORECTAL CANCER SCREENING 2017 FIT TEST 2017 FOBT 2017 SIGMOIDOSCOPY 2017 VIRTUAL COLONOSCOPY 2017 ZOSTER VACCINES (1 of 2) 2022 COVID-19 VACCINE (2023-2 5 season) 2023 03/28/2021, 06/26/2020, 05/28/2020 HEPATITIS A VACCINES Aged Out No long er eligible based on patient's age to complete this topic HIB VACCINES Aged Out No longer eligi ble based on patient's age to complete this topic MENINGOCOCCAL VACCINES (ACWY) Aged Out No longer eligible based on patient's age to complete this topic MENINGOCOCCAL VACCINES (B) Aged Out N o longer eligible based on patient's age to complete this topic Medical Devices Not on file Insurance [facility] ONE CARE MEDICARE REPLACEMENT [place] ROSEN [id number] GENERIC MEDICARE REPLACEMENT [facility] [employer] ONE CARE MEDICARE REPLACEMENT GENERIC MEDICARE REPLACEMENT [facility] ONE CARE MEDICARE REPLACEMENT H[place] ROSEN [id number] GENERIC MEDICARE REPLACEMENT [facility] ONE CARE MEDICARE REPLACEMENT GENERIC MEDICARE REPLACEMENT [facility] [employer] ONE CARE MEDICARE REPLACEMENT GENERIC MEDICARE REPLACEMENT [facility] [facility] [employer] ONE CARE MEDICARE REPLACEMENT [place] ROSEN [id number] Care Teams Horse Rider Relationship Specialty Start Date End Date Aquilino Black MD [address] [place] [address] [place] [address] PCP - General Internal Medicine 02/25/22 Additional Source Comments The information contained in this document represents components of the legal health record. It is not the complete legal health record.[facility]
--- OUTSIDE RECORDS SUMMARY | 2024-11-19 15:10 | XMS_ITS | Patient Health Record ---
[facility] Address [address] [place] [address] Care Team Providers Care Assistant Office Manager Name Role Phone Aquilino Black MD Primary Care Provider Anurag ValenzuelaReshmae Unavailable [phone] Allergies No Known Allergies Reason For Referral No Information Medications Medication SIG (Take, Route, Frequency, Duration) Notes Start Date End Date Status Lacosamide 150 MG 1 tablet Orally Twic e a day Active tiZANidine HCl 4 MG 1 tablet as needed O ral Three times a day Not-Taking Fiber-Lax 625 MG Oral; Duration: 28 Active Senna 8.6 MG Oral; Duration: 28 Not-Taking Probiotic Active Linzess 290 MCG Oral; Duration: 30 Active Linzess 290 MCG Oral; Duration: 30 Not-Taking Sertraline HCl 100 MG Oral; Duration: 28 Active Fiber-Lax 625 MG Oral; Duration: 28 Not-Taking Folic Acid 1 MG Oral; Duration: 28 Active Ammonium Lactate 12 % 1 application Exte rnally to affected areas of dry skin to feet except for between the toes Twice a day; Duration: 30 days Active Dilantin 100 MG 2 capsules Orally qd Active Phenytoin Sodium Extended 100 MG Oral; Duration: 28 Not-Ta rosalia Vitamin D (Ergocalciferol) 1.25 MG (69325 UT) Oral; Duration: 29 Active Lacosamide 150 MG Oral; Duration: 28 Not-Taking Senna 8.6 MG Oral; Duration: 28 Active Terbinafine HCl 250 MG 1 tablet Orally O nce a day for 7 days days then stop for 3 weeks repeat cycle; Duration: 90 days 07/08/2023 Not-Aakash ing Dilantin 30 MG Oral; Duration: 28 Not-Taking Ciclopirox Olamine 0.77 % 1 application Externally Twice a day; Duration: 30 days Active tiZANidine HCl 4 MG Oral; Duration: 28 Active Social History Tobacco Use: Social [...] Ulcer of toe of left foot (disorder) ([id number]) Skin ulcer of toe of left foot, limited to breakdown of skin (L97.521) Active confirmed Nonapplicable Vital Signs Heart Rate 90 /min 06/11/2024 Blood pressure diastolic 79 mm Hg 06/11/2024 Height 5ft 7in in 06/11/2024 Blood pressure systolic 128 mm Hg 06/11/2024 Weight 135 lbs 06/11/2024 BMI 21.14 kg/m2 06/11/2024 Procedures Procedure Date Ordered Date Performed Result Body Sit e 98083-KICMFYO NAIL, 6 OR MORE 06/11/2024 N/A Encounters Encounter Location Date Provider Diagnosis [facility] [address] [address] 02/06/2024 Apurva Black Tinea unguium B35.1 ; Pain in right toe(s) M79.674 and Pain in left toe(s) M79.675 [facility] [address] [address] 06/11/2024 Apurva Black Tinea unguium B35.1 ; Pain in right toe(s) M79.674 ; Pain in left toe(s) M79.675 and Xerosis of skin L85.3 [facility] [place] [address] [place] [address] 10/08/2024 Apurva Nicolas Assessments Encounter Date Diagnosis (ICD Code) Assessment [...] 06/11/2024 Xerosis of skin (ICD-10 - L85.3) 02/06/2024 Other Plan Of Treatment Pending Test Test Name Order Date *Liver Function Test (LFT) 07/05/2023 *Liver Function Test (LFT) 11/04/2023 *Liver Function Test (LFT) 02/06/2024 21384-[id number] NAIL, 6 OR MORE 06/11/2024 77918- Debride <25 sq cm 07/18/2023 Insurance Providers Payer Name Payer Address Payer Phone Subscriber Number Group Number Insured Name Patient Relationship to Insured Coverage Start Date Coverage End Date [facility] [employer] Claims [address] [place] [id number] [phone] [id number] Carlito Ewing Self - patient is the insured Medical (General) History Medical History History ICD Code Epilepsy Chicken pox Bone implants/screws Surgical History Surgery Date(Month/Year) vns replace battery 04/13
[2024-11-19 16:48] LABS: Alanine Aminotransferase 18 U/L (0-40); Albumin Level 4.4 g/dL (3.5-5.0); Alkaline Phosphatase 88 U/L (39-117); Anion Gap 14 (12-20); Aspartate Amino Transferase 16 U/L (5-37); Blood Urea Nitrogen 6 mg/dL (9-16); Calcium 8.7 mg/dL (8.4-10.2); Carbon Dioxide 30 mmol/L (22-29); Chloride 103 mmol/L (96-108); Estimated Glomerular Filt Rate > 60; Potassium 3.8 mmol/L (3.3-5.1); Sodium 143 mmol/L (135-145); Total Protein 6.9 g/dL (6.5-8.0)
== END 2024-11-19 14:59 | disposition home or self-care (01) ==
LOC: HO.LAB 14:58
PROVIDERS: PCP Internal Medicine; Visit Provider Internal Medicine
DX: M25.512 Pain in left shoulder (principal); R56.9 Unspecified convulsions
CPT/HCPCS: 36415; 73030; 80053; 80184; 80185; 80235

== ENCOUNTER → 2024-11-19 15:40 | Outpatient (BNV) | payer OTHER, SELFPAY | PROVIDERS: PCP Internal Medicine; Visit Provider Radiology Body Imaging | DX: M19.012 Primary osteoarthritis, left shoulder (principal) | CPT/HCPCS: 73030 ==

== ENCOUNTER → 2024-11-21 17:41 | Outpatient (BNV) | payer OTHER, SELFPAY | PROVIDERS: Emergency Provider Internal Medicine; Visit Provider Radiology Diagnostic Radiology | DX: M48.02 Spinal stenosis, cervical region (principal); G40.89 Other seizures; R50.9 Fever, unspecified | CPT/HCPCS: 70450; 71045; 72125 ==

== ENCOUNTER 2024-11-21 17:45 | Emergency (ER) | payer OTHER, SELFPAY ==
--- NOTE | ~2024-11-21 | CT_ITS ---
CLINICAL HISTORY: close trauma , seizure hx CT head without contrast Comparison: CT/SR - CT HEAD/BRAIN WO IV CON - 09/11/24 10:58 EDT Findings: Redemonstrated cystic encephalomalacia/gliosis communicating with the right lateral ventricle extending diffusely throughout the frontal and parietal lobe stable mass effect with minimal leftward midline shift measuring 4 mm at the septum pellucidum. Scattered subcortical and periventricular hypoattenuation, likely in keeping with chronic small vessel ischemic disease. Parenchymal volume loss with compensatory prominence of the ventricles and CSF spaces. No acute territorial infarction or hydrocephalus. Lobulated mucosal thickening scattered throughout the paranasal sinuses. The orbits are within normal limits. Redemonstrated right-sided craniotomy changes. IMPRESSION: No acute intracranial hemorrhage or territorial infarction. Additional findings as described. This document has been electronically signed by: Altaf Weir MD on 11/21/2024 19:27:05
--- NOTE | ~2024-11-21 | CT_ITS ---
CLINICAL HISTORY: close trauma seizure hx CT cervical spine without contrast Comparison: CT/MT/SR - CT CERVICAL SPINE WITHOUT IV CONTRAST - 09/26/22 13:26 EDT Findings: Straightening of the cervical lordosis. Multilevel spondylosis with osteophytosis, uncovertebral hypertrophy, facet arthropathy and degenerative disc disease. Diffuse spinal canal narrowing, with moderate spinal canal narrowing for example at C5-C6 with severe bilateral foraminal stenoses. Osteopenia. No acute fracture. No cervical fluid collections or masses. Paraseptal emphysema. IMPRESSION: No acute findings. This document has been electronically signed by: Altaf Weir MD on 11/21/2024 19:26:36
--- NOTE | ~2024-11-21 | XR_ITS ---
CLINICAL HISTORY: fever 1 view chest x-ray Comparison: CR/MT/SR - XR CHEST 1V - 09/11/24 09:44 EDT Findings: No consolidation or effusion. Heart size is normal. No acute fracture. Left generator pack with vagal nerve stimulator redemonstrated. IMPRESSION: 1. No acute findings. This document has been electronically signed by: Altaf Weir MD on 11/21/2024 20:01:24
[2024-11-21 17:40] VITALS: BP 160/85; PULSE 130; O2SAT 95
[2024-11-21 17:41] VITALS: BP 138/91; PULSE 120; RESP 16; TEMP 38; O2SAT 92; BMI 25.8
[2024-11-21 17:58] LABS: Glucose, Whole Blood 145 mg/dL (60-115)
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
[2024-11-21 18:20] LABS: MANUAL DIFF FLAG NO
[2024-11-21 18:21] LABS: Hematocrit 39.8 % (42.0-52.0); Hemoglobin 14.4 g/dl (14.0-18.0); Imm Gran Abs Auto 0.04 X10*3/uL (0.00-0.03); Imm Gran Pct Auto 0.4 % (0.0-0.4); Lymphocytes Absolute Auto 2.1 X10*3/uL (1.2-4.9); Mean Corpuscular HGB Conc 36.2 g/dl (31.0-36.0); Mean Corpuscular Hemoglobin 31.9 pg (27.0-33.0); Mean Corpuscular Volume 88.1 fL (80.0-98.0); NRBC Abs Auto 0.000 X10*3/uL (0.0-0.012); NRBC Pct Auto 0.0 /100WBC (0.0-0.2); Platelet Count 273 X10*3/uL (160-400); Red Blood Count 4.52 X10*6/uL (4.60-5.80); White Blood Count 10.8 X10*3/uL (4.8-10.8)
--- OUTSIDE RECORDS SUMMARY | 2024-11-21 18:21 | XMS_ITS | Clinical Summary ---
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 2 Active ciprofloxacin HCl [...] topic Medical Devices Not on file Insurance [facility] ONE CARE MEDICARE REPLACEMENT H[place] ROSEN [id number] GENERIC MEDICARE REPLACEMENT [employer] ONE CARE MEDICARE REPLACEMENT GENERIC MEDICARE REPLACEMENT [employer] ONE CARE MEDICARE REPLACEMENT H[place] ROSEN [id number] GENERIC MEDICARE REPLACEMENT [employer] ONE CARE MEDICARE REPLACEMENT GENERIC MEDICARE REPLACEMENT [employer] ONE CARE MEDICARE REPLACEMENT GENERIC MEDICARE REPLACEMENT [facility] [facility] ONE CARE MEDICARE REPLACEMENT [place] ROSEN [id number] Care Teams Shellfish Processing Laborer Relationship Specialty Start Date End Date Aquilino Black MD [address] [place] [address] [place] [address] PCP - General Internal Medicine 02/25/22 Additional Source Comments The information contained in this document represents components of the legal health record. It is not the complete legal health record.[facility]
--- NOTE | 2024-11-21 18:24 | PC.NURSE ---
Pt non-verbal and post-ictal on arrival to ER; unable to participate with care; seizure precautions in place; redness noted arounf front of patients neck; EMS report pt had head stuck in a railing after seizure activity; MD made aware of redness, abrasion to R scapula, fever and elevated HR; sepsis protocol initiated at 1815; 2nd IV access established; pt medicated per orders for restlessness; IVF's infusing and IV APAP completed; will cont to monitor/tx per orders
[2024-11-21 18:42] LABS: Alanine Aminotransferase 20 U/L (0-40); Albumin Level 4.1 g/dL (3.5-5.0); Alkaline Phosphatase 80 U/L (39-117); Anion Gap 17 (12-20); Aspartate Amino Transferase 32 U/L (5-37); Blood Urea Nitrogen 5 mg/dL (9-16); Calcium 8.5 mg/dL (8.4-10.2); Carbon Dioxide 23 mmol/L (22-29); Chloride 102 mmol/L (96-108); Creatinine Clr Calc Pharmacy 88.9; Estimated Glomerular Filt Rate > 60; Potassium 4.0 mmol/L (3.3-5.1); Sodium 138 mmol/L (135-145); Total Protein 7.1 g/dL (6.5-8.0)
--- NOTE | 2024-11-21 19:02 | PC.NURSE ---
Pt back from CT scan; pt speaking at this time; oriented to self only; family at bedside; report to LARON Paredes
[2024-11-21 19:28] VITALS: BP 119/72; PULSE 74; RESP 17; TEMP 37.1; O2SAT 97
--- NOTE | 2024-11-21 19:29 | PC.NURSE ---
this RN resumed care of pt at 1900, pt just returned from Ct scan, family at bedside. Pt is responsive to staff at this time, able to answer his name, knows he is at a hospital, just not which one. Denies pain at this time. IVF infusing, IV antibiotic ordered and given per MD who is at bedside. Previous nurse concerned of sepsis alert, MD at this time does not think it is, pt has no WBC, no cough noted, Xray obtained. pt HR now in the 70's, RA O2 remains stable, BP remain sys above 100. Awaiting work up at this time. Call rivera within reach, seizure precautions maintained.
[2024-11-21 19:44] VITALS: BP 126/71; PULSE 75; RESP 12; O2SAT 95
[2024-11-21 20:19] LABS: Reflex Lactate? Lactic Acid Added
[2024-11-21 20:45] LABS: ~Lactic Acid-LAB USE ONLY 0.9 mmol/L (0.5-2.0)
[2024-11-21 23:15] LABS: Appearance Urine Clear; Glucose Urine UA Negative (Negative); PH 7.0 (5.0-9.0); Specific Gravity - Urine 1.010 (1.005-1.025); UMIC TRIGGER UACC YES
[2024-11-21 23:26] LABS: Cannabinoid Screen Urine Not Detected (Not Detect)
--- NOTE | 2024-11-21 23:31 | PC.NURSE ---
Pt family called and updated multiple times, pt is up for DC at this time, family to come and pick him up. Education given for F/U care with family. Pt changed and ready to be DC when family here
[2024-11-21 23:52] VITALS: BP 165/87; PULSE 64; RESP 16; TEMP 36.9; O2SAT 96
[2024-11-21 23:56] VITALS: BP 165/87; PULSE 64; RESP 16; TEMP 36.9; O2SAT 96
== END 2024-11-21 23:57 | disposition home or self-care (01) ==
PROVIDERS: Emergency Provider Internal Medicine
DX: G40.909 Epilepsy, unspecified, not intractable, without status epilepticus (principal); I10 Essential (primary) hypertension; F32.A Depression, unspecified; F17.210 Nicotine dependence, cigarettes, uncomplicated; R50.9 Fever, unspecified; G81.14 Spastic hemiplegia affecting left nondominant side; E78.5 Hyperlipidemia, unspecified; E55.9 Vitamin D deficiency, unspecified; K59.09 Other constipation; Z87.820 Personal history of traumatic brain injury
CPT/HCPCS: 36415; 70450; 71045; 72125; 80053; 80185; 80307; 81001; 82947; 83605; 85025; 87040; 96361; 96365; 96367; 96375; 99285; J0131; J0696; J1165; J2250

== ENCOUNTER 2024-11-30 15:36 | Outpatient (AMB) | payer OTHER, SELFPAY ==
--- OUTSIDE RECORDS SUMMARY | 2024-11-30 15:41 | XMS_ITS | Clinical Summary ---
Author Organization [facility] Address [address] [place] [phone] Phone Care Team Providers Care Human Resources Supervisor Name Role Phone Aquilino Black MD Primary Care Provider [phone] Allergies No known active allergies Medications ergocalciferol [...] Details, Route to Pharmacy Electronically, [id number], 170, cm, 0... 2 Active ciprofloxacin HCl [...] topic Medical Devices Not on file Insurance [facility] ONE CARE MEDICARE REPLACEMENT HENRY ROSEN [id number] GENERIC MEDICARE REPLACEMENT [facility] ONE CARE MEDICARE REPLACEMENT GENERIC MEDICARE REPLACEMENT [facility] ONE CARE MEDICARE REPLACEMENT HENRY ROSEN [id number] GENERIC MEDICARE REPLACEMENT [facility] ONE CARE MEDICARE REPLACEMENT GENERIC MEDICARE REPLACEMENT [facility] ONE CARE MEDICARE REPLACEMENT GENERIC MEDICARE REPLACEMENT [facility] ONE CARE MEDICARE REPLACEMENT H[place]RY ROSEN [id number] Care Teams Human Resources Supervisor Relationship Specialty Start Date End Date Aquilino Black MD [address] [place] [address] [place] [address] PCP - General Internal Medicine 02/25/22 Additional Source Comments The information contained in this document represents components of the legal health record. It is not the complete legal health record.[facility]
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
== END 2024-11-30 16:15 | disposition home or self-care (01) ==
LOC: HO.HSM 15:37
PROVIDERS: Visit Provider Psychiatry & Neurology Neurology
DX: S06.9X9S Unspecified intracranial injury with loss of consciousness of unspecified duration, sequela (principal); G81.14 Spastic hemiplegia affecting left nondominant side; G40.909 Epilepsy, unspecified, not intractable, without status epilepticus
CPT/HCPCS: 99214

== ENCOUNTER → 2024-11-30 15:36 | Outpatient (BNVA) | payer OTHER, SELFPAY | PROVIDERS: Visit Provider Psychiatry & Neurology Neurology | DX: G81.14 Spastic hemiplegia affecting left nondominant side (principal); G40.909 Epilepsy, unspecified, not intractable, without status epilepticus; S06.9X9S Unspecified intracranial injury with loss of consciousness of unspecified duration, sequela | CPT/HCPCS: 99212 ==

== ENCOUNTER 2024-12-25 12:49 | Outpatient (AMB) | payer OTHER, SELFPAY ==
--- OUTSIDE RECORDS SUMMARY | 2024-12-24 23:59 | XMS_ITS | Continuity of Care Document ---
Author Organization [facility] Address [address] [place] [address]- Care Team Providers Care Trimmer Tailer Name Role Phone Wayne MENDOZA, Aquilino Bateman Primary Care Physician Encounter 12/17/24 - 12/24/24 [facility] [address], [address] [place] [address]- Attending Physician: Torito Gudino MD Admitting Physician: Torito Gudino MD Referring Physician: Torito Gudino MD Encounter Type: OutPatient One Time Allergies, Adverse Reactions, Alerts No Known Allergies Medications folic acid 1 mg oral tablet 1 tablet = 1 mg, By Mouth, Daily, 0 Refills, Maintenance, 08/26/13 8:35:49 AM EDT Start Date: 08/26/13 Status: Ordered Medication Dispense Status: Completed Total Allowed Fills: 1 Fills Dispensed: 0 L carbon fiber AFO L carbon fiber AFO, See Instructions, # 1 each, Refills 0, Tot. Refills 0, Maintenance, Dx: Spasticleft HP, 02/27/22 7:36:00 AM EST, Compound Start Date: 02/27/22 Status: Ordered Medication Dispense Status: Completed Quantity: 1.0 Unit: each Total Allowed Fills: 1 Fills Dispensed: 0 lacosamide 150 mg oral tablet = 300 mg, By Mouth, 2 times a day, # 120 tablet, 5 Refills, Maintenance, 02/25/23 10:21:00 AM EST, Tablet, [facility], 175, cm, 02/15/23 13:36:00 EDT, Height, 60, kg, 12/10/22 10:35:00EDT, Dry Weight Start Date: 02/25/23 Status: Ordered Medication Dispense Status: Completed Quantity: 120.0 Unit: tablet Total Allowed Fills: 6 Fills Dispensed: 0 Left carbon fiber AFO Left carbon fiber AFO, See Instructions, # 1 units, Refills 0, Tot. Refills 0, Maintenance, Dx: TBI/ left hemiplegia, 02/04/19 11:33:24 AM EDT, Compound Start Date: 02/04/19 Status: Ordered Medication Dispense Status: Completed Quantity: 1.0 Unit: Units Total Allowed Fills: 1 Fills Dispensed: 0 Left shoe/heel lift Left shoe/heel lift, See Instructions, # 1 each, Refills 0, Tot. Refills 0, Maintenance, Dx: TBI, LLD, 12/31/19 12:02:00 PM EDT, Compound Start Date: 12/31/19 Status: Ordered Medication Dispense Status: Completed Quantity: 1.0 Unit: each Total Allowed Fills: 1 Fills Dispensed: 0 Linzess 290 mcg oral capsule 1 capsule = 290 mcg, By Mouth, Daily, # 30 capsule, 0 Refills, Maintenance, 09/08/24 11:24:00 PM EDT, Capsule, Partial fill upon patient request if the prescription is for a schedule II opioid drug. Start Date: 09/08/24 Status: Ordered Medication Dispense Status: Completed Quantity: 30.0 Unit: capsule Total Allowed Fills: 1 Fills Dispensed: 0 phenytoin 100 mg oral capsule, extended release = 200 mg, By Mouth, 2 times a day, # 120 capsule, 5 Refills, Maintenance, 02/25/23 10:21:00 AM EST, ER Capsule, [facility], 175, cm, 02/15/23 13:36:00 EDT, Height, 60, kg, 12/10/22 10:35:00 EDT, Dry Weight Start Date: 02/25/23 Status: Ordered Medication Dispense Status: Completed Quantity: 120.0 Unit: capsule Total Allowed Fills: 6 Fills Dispensed: 0 Reguloid 400 mg oral capsule See Instructions, 1 capsule By Mouth, 0 Refills, Maintenance, 09/08/24 11:46:00 PM EDT, Partial fillupon patient request if the prescription is for a schedule II opioid drug. Start Date: 09/08/24 Status: Ordered Medication Dispense Status: Completed Total Allowed Fills: 1 Fills Dispensed: 0 Repair Left AFO Straps Repair Left AFO Straps, See Instructions, # 1 kit, Refills 0, Tot. Refills 0, Maintenance, Dx: Spastic left HP, 08/06/24 11:24:00 AM EDT, Supply Start Date: 08/06/24 Status: Ordered Medication Dispense Status: Completed Quantity: 1.0 Unit: kit Total Allowed Fills: 1 Fills Dispensed: 0 Senna-Time 8.6 mg oral tablet TAKE 17.2 MG (2 X 8.6 MG) BEDTIME FOR CONSTIPATION Start Date: 05/25/21 Status: Ordered Medication Dispense Status: Completed Total Allowed Fills: 1 Fills Dispensed: 0 sertraline 100 mg oral tablet 1 tablet = 100 mg, By Mouth, Daily, # 30 tablet, 0 Refills, Maintenance, 09/08/24 11:24:00 PM EDT, Tablet, Partial fill upon patient request if the prescription is for a schedule II opioid drug. Start Date: 09/08/24 Status: Ordered Medication Dispense Status: Completed Quantity: 30.0 Unit: tablet Total Allowed Fills: 1 Fills Dispensed: 0 tiZANidine 4 mg oral tablet 4 mg, 1, tablet, By Mouth, 3 times a day, # 270 tablet, Refills 2, Tot. Refills 2, Maintenance, 10/08/24 9:14:00 AM EDT, Route to Pharmacy Electronically, [facility], 175, cm, 08/06/2510:08:00 EDT, Height, 60, kg, 12/10/22 10:35:00 EDT, Dry Weight Start Date: 10/08/24 Status: Ordered Medication Dispense Status: Completed Quantity: 270.0 Unit: tablet Total Allowed Fills: 3 Fills Dispensed: 0 Vitamin D 65145 iu oral capsule 1 capsule = 50,000 International_Units, By Mouth, Every week, 0 Refills, Maintenance, 08/26/13 8:35:02 AM EDT Start Date: 08/26/13 Status: Ordered Medication Dispense Status: Completed Total Allowed Fills: 1 Fills Dispensed: 0 Problem List Condition Confirmation Course Effective Dates [...] Exam Date Time Procedure Performing Provider Status 12/17/24 6:01 PM Shoulder Min 2 Views Left Auth (Verified) Notes: (Shoulder Min 2 Views Left) Reason For Exam: Trauma RESULT: Shoulder Min 2 Views Left Left shoulder, 2 views Reason: Trauma COMPARISON: 08/06/2024 FINDINGS: No fracture or dislocation. There are severe degenerative changes of the glenohumeral articulation. There is extensive spur formation of the glenoid and humeral head. There is narrowing of the joint. There is a healed fracture of the distal left clavicle. The wire from the nerve stimulator terminates in the left side of the neck. The left apex is clear. The left ribs which are visualized on thesex-rays appear normal. 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 No fracture. WSN: [id number] Ordering Physician: Torito Gudino Dictated By: Jeff Pritchett MD Dictated Date/Time: 12/18/24 2:41 pm Reviewed By: Jeff Pritchett MD Signed By: Jeff Pritchett MD Signed Date/Time: 12/18/24 2:41 pm Transcribed By: BRITTANY Transcribed Date/Time: 12/18/24 2:38 pm * Exam Date Time Procedure Performing Provider Status 12/17/24 6:01 PM Chest 2 Views Frontal and Lat Auth (Verified) Notes: (Chest 2 Views Frontal and Lat) Reason For Exam: pain;Other: RESULT: Chest 2 Views Frontal and Lat Chest 2 Views Frontal and Lat Reason: Other: COMPARISON: None. FINDINGS: LINES AND TUBES: Patient has a neural stimulator which terminates in the left-sided neck. LUNGS AND PLEURA: Clear lungs. Normal pulmonary vascularity. No evidence of pleural effusion. No pneumothorax. HEART, MEDIASTINUM AND VINCE: Heart is normal in size. Normal mediastinal and hilar contour. BONES AND SOFT TISSUES: No acute abnormality. IMPRESSION: No acute abnormality. WSN: [id number] Ordering Physician: Torito Gudino Dictated By: Jeff Pritchett MD Dictated Date/Time: 12/18/24 8:51 am Reviewed By: Jeff Pritchett MD Signed By: Jeff Pritchett MD Signed Date/Time: 12/18/24 8:51 am Transcribed By: BRITTANY Transcribed Date/Time: 12/18/24 8:46 am Social History Social History Type Response Smoking Status 10 or more cigarette s (1/2 pack or more)/day in last 30 days; Other: 1 pack a day; entered on: 01/23/24 Sex Sex Representation Male (finding) Patient Care team information Care Team Personnel Name: Nyasia RN, Martita Sanchez Position: S RN Member Role: Primary Care Nurse Name: Aquilino Black MD Position: Reference Physician Member Role: PCP Address: [address] [place] [address] Telecom: Name: Roseann Lassiter RN Position: S RN Member Role: Primary Care Nurse Name: Dee Gomez RN Position: S RN Member Role: Primary Care Nurse Name: Adamaris Moon Position: S RN Member Role: Primary Care Nurse Name: Nakita Diaz RN Position: S RN Member Role: Primary Care Nurse Name: Ariel Valadez MD Position: [facility] Renal MD Member Role: Lifetime Consulting Physician Address: [address] [place], [place] [id number] [facility] [address] Telecom: Name: Alexa Mccoy Position: S Outreach Member Role: Lifetime Consulting Physician Name: Loraine French RN Position: S RN Member Role: Primary Care Nurse Name: David Russell MD Position: [facility] Renal MD Member Role: Lifetime Consulting Physician Address: [address] [place], [place] [id number] [facility] [address] Telecom: Care Team Related Persons Name: NAKIA GARCIA Name: ARI KEMP Insurance Providers Guarantor name: WYATT EMILYLEO [email or web address] Plan Information #: 1 Payer: [facility] ONE CARE Payer Identifier: DEDRA Member Number: [id number] Group Number: [id number] Subscriber Identifier: [id number] Relationship to Subscriber: self Coverage Type: Medicare Managed Care (Includes Medicare Advantage Plans) Coverage Verification Date: NA Telecom: NA Address: NA
--- OUTSIDE RECORDS SUMMARY | 2024-12-24 23:59 | XMS_ITS | Continuity of Care Document ---
Author Organization [facility] Address [address] [address]- Care Team Providers Care Trust Advisor Name Role Phone Wayne MENDOZA, Aquilino Bateman Primary Care Physician Encounter [facility] [id number] Date(s): 12/17/24 - 12/24/24 [facility] [address] [place] [id number] Attending Physician: Torito Gudino MD Encounter Type: Office Visit Allergies, Adverse Reactions, Alerts No Known Allergies [...] Fills: 3 Fills Dispensed: 0 Vitamin D 26266 iu oral capsule 1 capsule = 50,000 [...] Confirmed Active Traumatic brain injury Confirmed Active Vital Signs Most recent to oldest [Reference Range]: 1 Height 175 cm (12/17/24 4:39 PM) Blood Pressure [90-138/55-84 mm Hg] 146/ 101mm Hg *H* (12/17/24 4:39 PM) Respiratory Rate [16-30 br/min] 16 br/mi n (12/17/24 4:39 PM) Blood pressure sites Arm, right (12/17/24 4:39 PM) Social History Social History Type Response Smoking Status 10 or more cigarette s (1/2 pack or more)/day in last 30 days; Other: 1 pack a day; entered on: 01/23/24 Sex Sex Representation Male (finding) Patient Care team information Care Team Personnel Name: Nyasia LARRY, Martita Sanchez Position: S RN Member Role: Primary Care Nurse Name: Aquilino Black MD Position: Reference Physician Member Role: PCP Address: [address] [place] [address] Telecom: Name: Roseann Lassiter RN Position: [facility] RN Member Role: Primary Care Nurse Name: Dee Gomez RN Position: [facility] RN Member Role: Primary Care Nurse Name: Adamaris Moon Position: S RN Member Role: Primary Care Nurse Name: Nakita Diaz RN Position: S RN Member Role: Primary Care Nurse Name: Ariel Valadez MD Position: [facility] Renal MD Member Role: Lifetime Consulting Physician Address: [address] [place] [address] [facility] [address] Telecom: Name: Alexa Mccoy Position: S Outreach Member Role: Lifetime Consulting Physician Name: Loraine French RN Position: [facility] RN Member Role: Primary Care Nurse Name: Dvaid Russell MD Position: [facility] Renal MD Member Role: Lifetime Consulting Physician Address: [address] [place] [address] [facility] [address] Telecom: Care Team Related Persons Name: NAKIA GARCIA Name: ARI KEMP Insurance Providers Guarantor name: WYATT Anteryon Plan Information #: 1 Payer: [facility] C[facility] Payer Identifier: NA Member Number: [id number] Group Number: [id number] Subscriber Identifier: [id number] Relationship to Subscriber: self Coverage Type: Medicare Managed Care (Includes Medicare Advantage Plans) Coverage Verification Date: NA Telecom: NA Address:
--- OUTSIDE RECORDS SUMMARY | 2024-12-25 13:01 | XMS_ITS | Clinical Summary ---
Author Organization [facility] Address [address] [place] [address] Phone Care Team Providers Care Clay Carman Name Role Phone Aquilino Black MD Primary Care Provider [phone] Allergies No known active allergies Medications ergocalciferol [...] Details, Route to Pharmacy Electronically, [id number], 170, cm, 0... 2 Active ciprofloxacin HCl [...] CENTER ONE CARE MEDICARE REPLACEMENT [facility] [id number] GENERIC MEDICARE REPLACEMENT [facility] ONE CARE MEDICARE REPLACEMENT GENERIC MEDICARE REPLACEMENT [facility] ONE CARE MEDICARE REPLACEMENT HENRY ROSEN [id number] GENERIC MEDICARE REPLACEMENT [facility] ONE CARE MEDICARE REPLACEMENT GENERIC MEDICARE REPLACEMENT [facility] ONE CARE MEDICARE REPLACEMENT GENERIC MEDICARE REPLACEMENT [facility] ONE CARE MEDICARE REPLACEMENT [facility] [id number] Care Teams Clay Carman Relationship Specialty Start Date End Date Aquilino Black MD [address] [place] [address] [place] [address] PCP - General Internal Medicine 02/25/22 Additional Source Comments The information contained in this document represents components of the legal health record. It is not the complete legal health record.[facility]
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
[2024-12-25 13:09] VITALS: BP 150/80; PULSE 74; TEMP 36.3; O2SAT 98; BMI 19.7
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
== END 2024-12-25 13:37 | disposition home or self-care (01) ==
LOC: HO.HMCH 12:50
PROVIDERS: Visit Provider Internal Medicine
DX: I10 Essential (primary) hypertension (principal)

== ENCOUNTER → 2024-12-25 12:49 | Outpatient (BNVA) | payer OTHER, SELFPAY | PROVIDERS: Visit Provider Internal Medicine | DX: I10 Essential (primary) hypertension (principal) | CPT/HCPCS: 96127; 99211 ==

== ENCOUNTER 2024-12-29 15:10 | Outpatient (AMB) | payer OTHER, SELFPAY ==
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
[2024-12-29 15:30] VITALS: PULSE 70
--- OUTSIDE RECORDS SUMMARY | 2024-12-29 17:30 | XMS_ITS | Clinical Summary ---
Author Organization [facility] Address [address] [place] [phone] Phone Care Team Providers Care Analytics Lead Name Role Phone Aquilino Black MD Primary Care Provider [phone] Allergies No known active allergies Medications ergocalciferol [...] Details, Route to Pharmacy Electronically, [id number], 170, cm, 0... 2 Active ciprofloxacin HCl [...] 2017 ZOSTER VACCINES (1 of 2) 2022 INFLUENZA VACCINE (#1) 2024 03/01/2021 COVID-19 VACCINE (2024-2 6 season) 2024 03/28/2021, 06/26/2020, 05/28/2020 HEPATITIS A VACCINES Aged [...] topic Medical Devices Not on file Insurance [facility] ONE CARE MEDICARE REPLACEMENT H[place] ROSEN [id number] GENERIC MEDICARE REPLACEMENT [employer] ONE [employer]ARE MEDICARE REPLACEMENT GENERIC MEDICARE REPLACEMENT [employer] MEDICARE REPLACEMENT GENERIC MEDICARE REPLACEMENT [facility] MEDICARE REPLACEMENT GENERIC MEDICARE REPLACEMENT [employer] MEDICARE REPLACEMENT GENERIC MEDICARE REPLACEMENT [employer] MEDICARE REPLACEMENT [employer] [id number] Care Teams Analytics Lead Relationship Specialty Start Date End Date Aquilino Black MD [address] [place] [address] [place] [id number] PCP - General Internal Medicine 02/25/22 Additional Source Comments The information contained in this document represents components of the legal health record. It is not the complete legal health record.[facility]
== END 2024-12-29 15:35 | disposition home or self-care (01) ==
LOC: HO.HSM 15:10
PROVIDERS: PCP Internal Medicine; Referring Provider Internal Medicine; Visit Provider Psychiatry & Neurology Neurology
DX: G81.94 Hemiplegia, unspecified affecting left nondominant side (principal); S06.9X9S Unspecified intracranial injury with loss of consciousness of unspecified duration, sequela; G81.14 Spastic hemiplegia affecting left nondominant side; G40.909 Epilepsy, unspecified, not intractable, without status epilepticus
CPT/HCPCS: 99214

== ENCOUNTER 2024-12-29 15:10 | Outpatient (REF) | payer OTHER, SELFPAY | END 2024-12-29 15:11 | disposition home or self-care (01) | LOC: HO.LAB 15:10 | PROVIDERS: PCP Internal Medicine; Referring Provider Internal Medicine; Visit Provider Psychiatry & Neurology Neurology | DX: G81.14 Spastic hemiplegia affecting left nondominant side (principal); G40.909 Epilepsy, unspecified, not intractable, without status epilepticus; S06.9X9S Unspecified intracranial injury with loss of consciousness of unspecified duration, sequela; X58.XXXS Exposure to other specified factors, sequela | CPT/HCPCS: 36415; 80185; 99212 ==

== ENCOUNTER 2025-01-05 16:20 | Outpatient (AMB) | payer OTHER, SELFPAY ==
[2025-01-05 16:22] VITALS: BP 130/88; PULSE 87; RESP 18; TEMP 36.2; O2SAT 97; BMI 19.3
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
[2025-01-05 16:49] VITALS: BP 132/78
--- OUTSIDE RECORDS SUMMARY | 2025-01-05 19:07 | XMS_ITS | Clinical Summary ---
Author Organization [facility] Address [address] [place] [id number] Phone Care Team Providers Care Vocational Aide Name Role Phone Aquilino Black MD Primary Care Provider [phone] Allergies No known active allergies Medications ergocalciferol [...] Details, Route to Pharmacy Electronically, [id number], 170, cm, 0... 2 Active ciprofloxacin HCl [...] topic Medical Devices Not on file Insurance [facility] ONE CARE MEDICARE REPLACEMENT HENRY ROSEN [id number] GENERIC MEDICARE REPLACEMENT [employer] ONE CARE MEDICARE REPLACEMENT GENERIC MEDICARE REPLACEMENT [employer] ONE CARE MEDICARE REPLACEMENT GENERIC MEDICARE REPLACEMENT [employer] ONE CARE MEDICARE REPLACEMENT GENERIC MEDICARE REPLACEMENT [employer] ONE CARE MEDICARE REPLACEMENT GENERIC MEDICARE REPLACEMENT [employer] ONE CARE MEDICARE REPLACEMENT HENRY ROSEN [id number] Care Teams Vocational Aide Relationship Specialty Start Date End Date Aquilino Black MD [address] [place] [address] [place] [address] PCP - General Internal Medicine 02/25/22 Additional Source Comments The information contained in this document represents components of the legal health record. It is not the complete legal health record.[facility]
== END 2025-01-05 17:11 | disposition home or self-care (01) ==
LOC: HO.HMCH 16:21
PROVIDERS: PCP Internal Medicine
DX: I10 Essential (primary) hypertension (principal); R42 Dizziness and giddiness

== ENCOUNTER → 2025-01-05 16:20 | Outpatient (BNVA) | payer OTHER, SELFPAY | PROVIDERS: PCP Internal Medicine | DX: R42 Dizziness and giddiness (principal); I10 Essential (primary) hypertension | CPT/HCPCS: 99212 ==

== ENCOUNTER 2025-01-26 10:22 | Outpatient (REF) | payer OTHER, SELFPAY ==
--- NOTE | 2025-01-26 11:33 | EEG_ITS ---
Roomed Performed:?402 Reason: epilepsy History: hypertension, left spastic hemiplegia, dyslipidemia, Vit D, cutaneous fistula, seizure disorder, hydrocele, TBI, left hemiparesis - Patient reports daily dizziness for the past month. Medication: dilantin, folic acid, lacosamide Technical description Photic stimulation: completed Hyperventilation:?omitted Behavioral state: pleasant, cooperative State of Consciousness: awake and sleep Skull defect: none Sedation: none Handedness: right Duration of study:?32 min 27 sec Description: This is a 16 channel EEG with an EKG lead. Patient is reported awake and sleep during the tracing. Background EEG rhythm is somewhat asymmetrical with slightly lower amplitude noted with right hemispheric leads. Intermittently right mid temporal sharp and slow wave complexes were noted. Photic stimulation did not produce any significant driving. Hyperventilation was not performed. Cardiac lead did not reveal any significant abnormality. Some lead and muscle artifacts were noted. Impression: Abnormal EEG suggestive of right hemispheric dysfunction right temporal epileptic focus. No definite seizures were noted. [facility]TDD
--- OUTSIDE RECORDS SUMMARY | 2025-01-26 12:29 | XMS_ITS | Clinical Summary ---
Author Organization [facility] Address [address] [place] [id number] Phone Care Team Providers Care Store Loss Prevention Manager Name Role Phone Aquilino Black MD Primary Care Provider [phone] Allergies No known active allergies Medications ergocalciferol [...] Details, Route to Pharmacy Electronically, [id number], 170, cm, 0... 2 Active ciprofloxacin HCl [...] INFLUENZA VACCINE (#1) 2024 03/01/2021 COVID-19 VACCINE (4 - 2024-2 6 season) 2024 03/28/2021, 06/26/2020, 05/28/2020 RSV VACCINE (1 - 1-dose 75+ series) 09/26/2047 HEPATITIS A VACCINES Aged Out No long [...] topic Medical Devices Not on file Insurance [facility] ONE CARE MEDICARE REPLACEMENT GENERIC MEDICARE REPLACEMENT [employer] ONE CARE MEDICARE REPLACEMENT GENERIC MEDICARE REPLACEMENT [employer] ONE CARE MEDICARE REPLACEMENT GENERIC MEDICARE REPLACEMENT [employer] ONE CARE MEDICARE REPLACEMENT GENERIC MEDICARE REPLACEMENT [employer] ONE CARE MEDICARE REPLACEMENT GENERIC MEDICARE REPLACEMENT [employer] ONE CARE MEDICARE REPLACEMENT HENRY ROSEN [id number] Care Teams Store Loss Prevention Manager Relationship Specialty Start Date End Date Aquilino Black MD [address] [place] [address] [place] [address] PCP - General Internal Medicine 02/25/22 Additional Source Comments The information contained in this document represents components of the legal health record. It is not the complete legal health record.[facility]
== END 2025-01-26 10:23 | disposition home or self-care (01) ==
LOC: HO.NEURO 10:22
PROVIDERS: PCP Internal Medicine; Visit Provider Psychiatry & Neurology Neurology
DX: G40.909 Epilepsy, unspecified, not intractable, without status epilepticus (principal)
CPT/HCPCS: 95819

== ENCOUNTER → 2025-01-26 11:33 | Outpatient (BNV) | payer OTHER, SELFPAY | PROVIDERS: PCP Internal Medicine; Visit Provider Psychiatry & Neurology Neurology | DX: G40.909 Epilepsy, unspecified, not intractable, without status epilepticus (principal) | CPT/HCPCS: 95819 ==

== ENCOUNTER 2025-02-08 08:02 | Outpatient (AMB) | payer OTHER, SELFPAY ==
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
== END 2025-02-08 08:26 | disposition home or self-care (01) ==
LOC: HO.HSM 08:03
PROVIDERS: Visit Provider Psychiatry & Neurology Neurology
DX: S06.9X9S Unspecified intracranial injury with loss of consciousness of unspecified duration, sequela (principal); G81.14 Spastic hemiplegia affecting left nondominant side; G40.909 Epilepsy, unspecified, not intractable, without status epilepticus; Z96.89 Presence of other specified functional implants
CPT/HCPCS: 99214

== ENCOUNTER → 2025-02-08 08:02 | Outpatient (BNVA) | payer OTHER, SELFPAY | PROVIDERS: Visit Provider Psychiatry & Neurology Neurology | DX: G81.14 Spastic hemiplegia affecting left nondominant side (principal); G40.909 Epilepsy, unspecified, not intractable, without status epilepticus; S06.9X9S Unspecified intracranial injury with loss of consciousness of unspecified duration, sequela; Z96.89 Presence of other specified functional implants | CPT/HCPCS: 99212 ==

== ENCOUNTER 2025-03-22 16:43 | Outpatient (AMB) | payer OTHER, SELFPAY ==
[2025-03-22 16:47] VITALS: BP 116/84; PULSE 96; O2SAT 94; BMI 18.9
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
--- OUTSIDE RECORDS SUMMARY | 2025-03-22 18:50 | XMS_ITS | Clinical Summary ---
Author Organization [facility] Address [address] [place] [id number] Phone Care Team Providers Care Material Hauler Name Role Phone Aquilino Black MD Primary Care Provider [phone] Allergies No known active allergies Medications ergocalciferol [...] Take 200 mg by mouth. 2 Active plecanatide (TRULANCE) [...] Replace Required Details, Route to Pharmacy Electronically, [id number], 170, cm, 0... 2 Active ciprofloxacin HCl [...] INFLUENZA VACCINE (#1) 2024 03/01/2021 COVID-19 VACCINE ( - 2024-2 6 season) 2024 03/28/2021, 06/26/2020, [...] topic Medical Devices Not on file Insurance [facility] ONE CARE MEDICARE REPLACEMENT GENERIC MEDICARE REPLACEMENT [employer] ONE CARE MEDICARE REPLACEMENT GENERIC MEDICARE REPLACEMENT [employer] MEDICARE REPLACEMENT JESSIKAHENRY [id number] GENERIC MEDICARE REPLACEMENT [employer] [place] [id number] GENERIC MEDICARE REPLACEMENT [employer] [id number] GENERIC MEDICARE REPLACEMENT [employer] MEDICARE REPLACEMENT Care Teams Material Hauler Relationship Specialty Start Date End Date Aquilino Black MD [address] [place] [address] [place] [address] PCP - General Internal Medicine 02/25/22 Additional Source Comments The information contained in this document represents components of the legal health record. It is not the complete legal health record.[facility]
== END 2025-03-22 17:09 | disposition home or self-care (01) ==
LOC: HO.HMCH 16:44
PROVIDERS: Visit Provider Internal Medicine
DX: I10 Essential (primary) hypertension (principal); G40.909 Epilepsy, unspecified, not intractable, without status epilepticus; G81.14 Spastic hemiplegia affecting left nondominant side; F33.1 Major depressive disorder, recurrent, moderate; S06.9X9S Unspecified intracranial injury with loss of consciousness of unspecified duration, sequela; F17.200 Nicotine dependence, unspecified, uncomplicated

== ENCOUNTER → 2025-03-22 16:43 | Outpatient (BNVA) | payer OTHER, SELFPAY | PROVIDERS: Visit Provider Internal Medicine | DX: I10 Essential (primary) hypertension (principal); G40.909 Epilepsy, unspecified, not intractable, without status epilepticus; G81.14 Spastic hemiplegia affecting left nondominant side; F33.1 Major depressive disorder, recurrent, moderate; F17.210 Nicotine dependence, cigarettes, uncomplicated; Z87.828 Personal history of other (healed) physical injury and trauma | CPT/HCPCS: 96127; 99212 ==

== ENCOUNTER 2025-04-01 09:46 | Outpatient (AMB) | payer OTHER, SELFPAY ==
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
== END 2025-04-01 10:36 | disposition home or self-care (01) ==
LOC: HO.HOS 09:46
PROVIDERS: PCP Internal Medicine; Visit Provider Physician Assistant
DX: M19.012 Primary osteoarthritis, left shoulder (principal)
CPT/HCPCS: 20610; 99204

== ENCOUNTER → 2025-04-01 09:46 | Outpatient (BNVA) | payer OTHER, SELFPAY | PROVIDERS: PCP Internal Medicine; Visit Provider Physician Assistant | DX: M19.012 Primary osteoarthritis, left shoulder (principal) | CPT/HCPCS: 20610; 99202; J0665; J1100; J2003 ==

== ENCOUNTER 2025-04-19 09:58 | Outpatient (AMB) | payer OTHER, SELFPAY ==
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
--- OUTSIDE RECORDS SUMMARY | 2025-04-19 11:02 | XMS_ITS | Clinical Summary ---
Author Organization [facility] Address [address] [place] [id number] Phone Care Team Providers Care Certified Teacher Assistant Name Role Phone Aquilino Black MD Primary Care Provider [phone] Allergies No known active allergies Medications ergocalciferol [...] Details, Route to Pharmacy Electronically, [id number], 170, cm, 0... 2 Active ciprofloxacin HCl [...] topic Medical Devices Not on file Insurance [facility] ONE CARE MEDICARE REPLACEMENT GENERIC MEDICARE REPLACEMENT [employer] ONE CARE MEDICARE REPLACEMENT GENERIC MEDICARE REPLACEMENT [employer] ONE CARE MEDICARE REPLACEMENT [place] [id number] GENERIC MEDICARE REPLACEMENT [employer] [place] [id number] GENERIC MEDICARE REPLACEMENT [employer] [place] [id number] GENERIC MEDICARE REPLACEMENT [employer]ARE MEDICARE REPLACEMENT Care Teams Certified Teacher Assistant Relationship Specialty Start Date End Date Aquilino Black MD [address] [place] [address] [place] [id number] PCP - General Internal Medicine 02/25/22 Additional Source Comments The information contained in this document represents components of the legal health record. It is not the complete legal health record.[facility]
== END 2025-04-19 10:30 | disposition home or self-care (01) ==
LOC: HO.HSM 09:59
PROVIDERS: Visit Provider Psychiatry & Neurology Neurology
DX: G81.94 Hemiplegia, unspecified affecting left nondominant side (principal); S06.9X9S Unspecified intracranial injury with loss of consciousness of unspecified duration, sequela; G81.14 Spastic hemiplegia affecting left nondominant side; G40.909 Epilepsy, unspecified, not intractable, without status epilepticus; Z96.89 Presence of other specified functional implants
CPT/HCPCS: 99214

== ENCOUNTER → 2025-04-19 09:58 | Outpatient (BNVA) | payer OTHER, SELFPAY | PROVIDERS: Visit Provider Psychiatry & Neurology Neurology | DX: G40.419 Other generalized epilepsy and epileptic syndromes, intractable, without status epilepticus (principal); S06.9X9S Unspecified intracranial injury with loss of consciousness of unspecified duration, sequela; G81.14 Spastic hemiplegia affecting left nondominant side; Z96.89 Presence of other specified functional implants; Z79.899 Other long term (current) drug therapy | CPT/HCPCS: 99212 ==